=== PATIENT | female | born 1955 | race Caucasian/White ===

== ENCOUNTER 2022-04-22 15:00 | Emergency (ER) | payer MEDICARE, SELFPAY ==
--- NOTE | 2022-04-22 15:07 | ED.URI ---
HPI - URI/Sore Throat General Chief Complaint: Upper Respiratory Infection Stated Complaint: Headache/Fever/Cough Time Seen by Provider: 04/22/22 15:07 Source: patient Mode of arrival: ambulatory Limitations: no limitations History of Present Illness HPI Narrative: Ms. Lucero is a 67-year-old female patient presenting to the clinic today with complaints of a headache, fever, and cough times starting on Thursday. She has congestion and feels stuffy . She reports she has tested positive for COVID at home on Thursday. She denies ear pain, throat pain, SOB and chest pain. She is requesting Paxlovid. MD elicited complaint: fever, cough and other (headache) Related Data Home Medications Medication Instructions Recorded Confirmed aspirin 81 mg tablet 81 mg PO DAILY 04/22/22 04/22/22 bempedoic acid 180 mg-ezetimibe 10 1 tablet PO DAILY 04/22/22 04/22/22 mg tablet (Nexlizet) carvedilol 25 mg tablet 25 mg PO BID 04/22/22 04/22/22 Allergies Allergy/AdvReac Type Severity Reaction Status Date / Time Macrolide Antibiotics AdvReac Rash Verified 04/22/22 15:18 Penicillins AdvReac Rash Verified 04/22/22 15:18 Quinolones AdvReac Rash Verified 04/22/22 15:18 Sulfa (Sulfonamide AdvReac Rash Verified 04/22/22 15:18 Antibiotics) Review of Systems Review of Systems: Pertinent positives per HPI. Patient denies any, rash, visual changes, dizziness, shortness of breath, chest pain, palpitations, nausea, vomiting, diarrhea, constipation, abdominal pain, or any urinary issues. PMFSH Comments At the time of my signature, I reviewed and agree with the nursing past medical, surgical, social, and family history. There is no relevant family history pertinent to the patient complaint. Exam Narrative: General: Well-developed, obese, in no apparent distress Head: Normocephalic, atraumatic Eyes: Pupils equally round and reactive to light bilaterally, EOM intact, sclera and conjunctive clear, no discharge, lids normal Ears: TMs intact and clear, ear canals clear, no drainage, grossly hearing normal. Nose: Nares patent, clear nasal discharge present, no inflammation, no sinus tenderness. Mouth: Oral pharynx without lesions or masses, good dentition, MMM. Neck: Supple, trachea midline, no enlargement of anterior or posterior cervical nodes, no thyroid masses or goiter palpable. Cardio: Regular rate and rhythm, s1 and s2 normal, no murmur appreciated. Resp: Clear to auscultation bilaterally, no rhonchi, rales, wheezing or rubs Course Course Emergency Course: Portions of this record may have been created with voice recognition software. Level of Care: Express Care Visit Vital Signs Vital signs: Vital signs reviewed MDM - URI/Sore Throat MDM Narrative Medical decision making narrative: At the time of visit patient is resting comfortably on the exam table. Patient is positive for COVID at home and presented to the clinic for treatment. On exam, she did not have rales, ronchi, wheezing. Her SpO2 on presentation is 98%, and she denies SOB. She is on day five of symptoms, will send patient with prescription for Paxlovid. Differential Diagnosis Differential diagnosis: Likely upper respiratory infection, sinusitis, viral infection, bronchitis, influenza, pharyngitis and other (COVID) Discharge Plan Discharge Clinical Impression: COVID-19 Patient Disposition: Home, Self-Care Condition: Stable Instructions: Antibiotic Form, COVID-19 (Coronavirus Disease 2019) (ED), How to Recover from COVID-19 at Home (ED) Additional Instructions: Take prescription medications only as prescribed-paxlovid Increase fluids and stay well hydrated Tylenol/motrin for pain/fever Cool mist humidifer at bedside Flonase and OTC antihistamines as directed Vicks vapor rub to open sinuses Sinus rinses for congestion Cepacol spray, cough drops, throat lozenges, warm tea with honey/lemon, gargle salt water to soothe throat BRAT diet for diar
[2022-04-22 15:08] VITALS: BP 110/64; PULSE 81; RESP 20; TEMP 36.6; O2SAT 98
[2022-04-22 15:19] VITALS: BP 110/64; PULSE 81; RESP 20; TEMP 36.6; O2SAT 98
== END 2022-04-22 15:26 | disposition home or self-care (01) ==
PROVIDERS: Emergency Provider Nurse Practitioner Family
DX: U07.1 COVID-19 (principal); I25.10 Atherosclerotic heart disease of native coronary artery without angina pectoris; E78.00 Pure hypercholesterolemia, unspecified; I10 Essential (primary) hypertension; I42.9 Cardiomyopathy, unspecified
CPT/HCPCS: 99213; G0463

== ENCOUNTER 2022-05-07 03:01 | Emergency (ER) | payer MEDICARE, SELFPAY ==
--- NOTE | ~2022-05-07 | XR_ITS ---
EXAMINATION: XR knee RT 2V DATE: 05/07/2022 03:29 INDICATION: Right knee pain. TECHNIQUE: 2 views of right knee were obtained. COMPARISON: None. FINDINGS: Bone alignment is normal. No fracture. There is mild osteoarthritis of lateral and patellof emoral compartments. No knee joint effusion. IMPRESSION: 1. Mild right knee osteoarthritis. Reviewed, dictated and finalized at location A.
[2022-05-07 03:13] VITALS: BP 155/97; PULSE 65; RESP 20; TEMP 36.8; O2SAT 97
--- NOTE | 2022-05-07 03:31 | ED.EXTPRO ---
HPI - Extremity Problem General Chief complaint: Extremity Injury, Lower Stated complaint: RIGHT KNEE PAIN Time Seen by Provider: 05/07/22 03:26 Source: patient, EMS and RN notes reviewed Mode of arrival: EMS Limitations: no limitations History of Present Illness HPI Narrative: Patient just moved here. She does not have a doctor yet. She has chosen 1 in but they cannot see her till October as a new patient. She said she was walking today when she straightened out her legs she felt a pop and had severe pain in her right knee. It hurts to bend hurts to walk on. Complaint: joint paint Onset (ago): week(s) (2) Pain Consistency: constant (getting worse) Location: right and knee Quality: aching, sharp and constant Radiation: none Relieving factors: rest Exacerbating factors: range of motion, weight bearing and palpation Associated symptoms: denies other symptoms Related Data Home Medications Medication Instructions Recorded Confirmed bempedoic acid 180 mg-ezetimibe 10 1 tablet PO DAILY 04/22/22 05/07/22 mg tablet (Nexlizet) carvedilol 25 mg tablet 12.5 mg PO BID 04/22/22 05/07/22 oxybutynin chloride 5 mg tablet 5 mg PO BID 05/07/22 05/07/22 pantoprazole 40 mg tablet,delayed 40 mg PO QAM 05/07/22 05/07/22 release Allergies Allergy/AdvReac Type Severity Reaction Status Date / Time Macrolide Antibiotics AdvReac Rash Verified 05/07/22 03:23 Penicillins AdvReac Rash Verified 05/07/22 03:23 Quinolones AdvReac Rash Verified 05/07/22 03:23 Sulfa (Sulfonamide AdvReac Rash Verified 05/07/22 03:23 Antibiotics) Review of Systems Review of Systems: All systems reviewed & are unremarkable except as noted in HPI and below PMFSH Past Medical History Medical History (Updated 05/07/22 @ 03:46 by Daniel Duff MD) GERD (gastroesophageal reflux disease) Hyperlipidemia Hypertension Uterine cancer Surgical History Surgical History (Updated 05/07/22 @ 03:34 by Daniel Duff MD) History of total abdominal hysterectomy Exam Const: General: healthy appearing, no acute distress and alert Nutritional Appearance: well nourished and obese morbidly obese Orientation/consciousness: patient oriented x3 Limitations: no limitations HENMT: Head: normal to inspection Ears: external ears normal Face and sinus: normal facial exam Eyes: Conjunctivae: conjunctivae normal Pupils: Equal, round and reactive pupils present EOM: EOMs intact bilaterally Neck: Neck: normal visual inspection Resp: Effort & Inspection: normal respiratory effort Auscultation: clear to auscultation bilaterally Cardio: Rate: regular rate Rhythm: regular rhythm GI: GI Palp: Yes Soft to palpation and No Tenderness to palpation present (GI) Auscultation: normal bowel sounds Back/Spine/Pelvis: Cervical Spine: cervical ROM normal Thoracic/Lumbar Spine: thoraco-lumbar ROM normal Skin: General skin exam: normal color Rashes: no rashes Neuro: General: patient oriented x3, moves all extremities, no focal motor deficits and CN's II-XI intact bilaterally Speech: normal speech Extrem: General: normal exam except as noted and no clubbing, cyanosis or edema Right lower extremity: knee Details: abnormal to inspection Details: not erythematous, tenderness Location: of the patella (entire patella), of the medial joint line and of the proximal tibia Details: medially, swelling Location: of the patella and Becki's Test Details: positive medially; no deformity and no unusual warmth Psych: Mental Status: mental status grossly normal Affect: normal affect Attitude: cooperative Course Course Emergency Course: I explained the patient that there is no criteria for admission to the hospital. Daughter seemed very upset that there is nothing more I could do for her. I put her in a knee immobilizer, and she will half to get some crutches as an outpatient. Both patient and daughter seemed upset that they had to be sent home. Wondering how
[2022-05-07] MEDS: KETOROLAC (*BKC) 60 MG/2 ML VIAL IM (03:47)
--- NOTE | 2022-05-07 03:56 | PC.NURSE ---
knee immobilizer applied to right knee
--- NOTE | 2022-05-07 04:40 | PC.NURSE ---
right knee immobilizer in place at time of discharge.
[2022-05-07 04:41] VITALS: BP 167/97; PULSE 56; RESP 20; TEMP 36.8; O2SAT 96
== END 2022-05-07 04:43 | disposition home or self-care (01) ==
PROVIDERS: Emergency Provider Emergency Medicine
DX: M23.91 Unspecified internal derangement of right knee (principal); K21.9 Gastro-esophageal reflux disease without esophagitis; E78.5 Hyperlipidemia, unspecified; I10 Essential (primary) hypertension
CPT/HCPCS: 73560; 96372; 99283; J1885; L1830

== ENCOUNTER 2022-05-07 13:27 | Emergency (ER) | payer MEDICARE, SELFPAY ==
--- NOTE | ~2022-05-07 | US_ITS ---
EXAMINATION: US venous doppler LE RT DATE: 05/07/2022 15:16 INDICATION: Right lower limb pain. TECHNIQUE: Grayscale ultrasound images without and with compression and Doppler ultrasound images of the right lower extremity veins were obtained. COMPARISON: None. FINDINGS: The visualized portions of right common femoral vein, profunda (deep) femoral vein, femoral vein, pop liteal vein, peroneal veins, posterior tibial veins, and greater saphenous vein outflow are patent. IMPRESSION: 1. No deep venous thrombosis. Reviewed, dictated and finalized at location A.
[2022-05-07 13:57] VITALS: BP 97/62; PULSE 75; RESP 16; TEMP 36.8; O2SAT 97
[2022-05-07 14:14] LABS: Basophils Absolute Auto 0.1 K/mm3 (0.0-0.1); Basophils Percent Auto 1.2 % (0.2-1.2); Eosinophils Absolute Auto 0.3 K/mm3 (0-0.3); Hematocrit 41.8 % (37.0-47.0); Hemoglobin 13.6 g/dL (12.0-15.0); Immature Granulocyte Absolute 0.02 K/mm3 (0.00-0.031); Immature Granulocyte Percent A 0.3 % (0-0.5); Lymphocytes Absolute Auto 1.25 K/mm3 (0.9-3.2); Lymphocytes Percent Auto 21.4 % (18.3-44.2); Mean Corpuscular HGB Conc 32.5 g/dl (32-36); Mean Corpuscular Hemoglobin 30.3 pg (26-34); Mean Corpuscular Volume 93.1 fl (80-100); Mean Platelet Volume 8.7 fl (7.4-10.4); Monocytes Absolute Auto 0.5 K/mm3 (0.1-0.6); Monocytes Percent Auto 8.4 % (2.6-8.5); Neutrophils Absolute Auto 3.7 K/mm3 (1.3-6.7); Neutrophils Percent Auto 63.7 % (45.5-73.1); Platelet Count Result 315 k/mm3 (150-375); Red Blood Count 4.49 M/mm3 (4.2-5.4); Red Cell Distribution Width 12.3 % (11.5-14.5); White Blood Count 5.8 K/mm3 (4.5-10.0)
[2022-05-07 14:23] LABS: Prothrombin Time 12.9 Seconds (11.1-14.7)
[2022-05-07 14:24] LABS: Anion Gap 10 mmol/L (8-16); Blood Urea Nitrogen 23 mg/dL (7-17); Calcium 9.1 mg/dL (8.4-10.2); Carbon Dioxide 23 mmol/L (22-30); Chloride 105 mmol/L (98-107); Estimated CRCL calculation 76 ml/min; Estimated Glomerular Filt Rate > 60; Glucose 125 mg/dL (65-110); Partial Thromboplastin Time 29.1 SECONDS (22.3-36.8); Potassium 3.9 mmol/L (3.4-5.0); Sodium 138 mmol/L (137-145)
[2022-05-07 16:40] VITALS: BP 128/86; PULSE 82; RESP 16; O2SAT 98
--- NOTE | 2022-05-07 17:25 | ED.EXTPRO ---
HPI - Extremity Problem General Chief complaint: Extremity Problem,Nontraumatic <Kirsten Cr PA-C - Last Filed: 05/07/22 17:36> Stated complaint: pain behind right kneecap, reports it popped <Kirsten Cr PA-C - Last Filed: 05/07/22 17:36> Time Seen by Provider: 05/07/22 17:11 <SAMSON Israel Last Filed: 05/07/22 17:36> Source: patient <SAMSON Israel Last Filed: 05/07/22 17:36> Mode of arrival: EMS <SAMSON Israel Last Filed: 05/07/22 17:36> Limitations: no limitations <SAMSON Israel Last Filed: 05/07/22 17:36> History of Present Illness HPI Narrative: This is a 67-year-old female that presents to the emergency department for right knee pain. Reports it has been ongoing for quite some time. Reports worsening over the last couple of days. She was evaluated in the ER yesterday for this and placed in a knee immobilizer. Reports again today she felt a pop in the knee which prompted her to be seen again. Patient was concerned she may have a DVT. Reports swelling about the knee. Denies fever, erythema, or warmth of the knee. <SAMSON Israel Last Filed: 05/07/22 17:36> Related Data Home medications: Home Medications Medication Instructions Recorded Confirmed bempedoic acid 180 mg-ezetimibe 10 1 tablet PO DAILY 04/22/22 05/08/22 mg tablet (Nexlizet) carvedilol 25 mg tablet 12.5 mg PO BID 04/22/22 05/08/22 oxybutynin chloride 5 mg tablet 5 mg PO BID 05/07/22 05/08/22 pantoprazole 40 mg tablet,delayed 40 mg PO QAM 05/07/22 05/08/22 release <SAMSON Israel Last Filed: 05/07/22 17:36> Allergies/Adverse reactions: Allergies Allergy/AdvReac Type Severity Reaction Status Date / Time Macrolide Antibiotics AdvReac Rash Verified 05/08/22 14:42 Penicillins AdvReac Rash Verified 05/08/22 14:42 Quinolones AdvReac Rash Verified 05/08/22 14:42 Sulfa (Sulfonamide AdvReac Rash Verified 05/08/22 14:42 Antibiotics) <Kirsten Cr PA-C - Last Filed: 05/07/22 17:36> Review of Systems Review of Systems: CONSTITUTIONAL: Denies fever SKIN: Denies rash MUSCULOSKELETAL: Reports joint pain, and myalgia. NEUROLOGIC: Denies numbness, or weakness. <Kirsten Cr PA-C - Last Filed: 05/07/22 17:36> All systems reviewed & are unremarkable except as noted in HPI and below <Kirsten Cr PA-C - Last Filed: 05/07/22 17:36> PMFSH Past Medical History Medical History: Medical History (Updated 05/12/22 @ 08:13 by Gisel Dominguez MA) GERD (gastroesophageal reflux disease) Hyperlipidemia Hypertension Internal derangement of right knee Uterine cancer <Kirsten Cr PA-C - Last Filed: 05/07/22 17:36> Surgical History Surgical History: Surgical History History of total abdominal hysterectomy <Kirsten Cr PA-C - Last Filed: 05/07/22 17:36> Social History Social History: Social History (Updated 05/08/22 @ 14:47 by Gisel Dominguez MA) Smoking status: Never smoker Substance use: never Gender identity (if verbalized by the patient): Female <Kirsten Cr PA-C - Last Filed: 05/07/22 17:36> Exam Narrative: GENERAL: Well-appearing, well-nourished, and in no acute distress. HEAD: Normocephalic, atraumatic. EYES: EOMI. EXTREMITIES: No erythema or warmth of the knee. Normal straight leg raise. Mild edema about the right knee anteriorly. Normal DP pulse. Normal sensation SKIN: Warm, dry, no rash. NEURO: No focal deficits. Alert and oriented x3. PSYCH: Normal mood and affect <Kirsten Cr PA-C - Last Filed: 05/07/22 17:36> Course SANDWICH PEDDLER/PA Physician Supervision For this patient encounter, I reviewed the SANDWICH PEDDLER or PA documentation, treatment plan, and medical decision making. I was available for consultation as needed. <Meena Nash MD - Last Filed: 05/16/22 13:06> Vital Signs Vital signs:
== END 2022-05-07 18:12 | disposition home or self-care (01) ==
PROVIDERS: Emergency Medicine; Emergency Provider Emergency Medicine
DX: M23.91 Unspecified internal derangement of right knee (principal); I10 Essential (primary) hypertension; K21.9 Gastro-esophageal reflux disease without esophagitis; E78.5 Hyperlipidemia, unspecified; Z85.42 Personal history of malignant neoplasm of other parts of uterus; M79.604 Pain in right leg
CPT/HCPCS: 36415; 80048; 85025; 85610; 85730; 93971; 99284

== ENCOUNTER 2022-07-08 08:50 | Outpatient (CLI) | payer MEDICARE, SELFPAY ==
--- NOTE | ~2022-07-08 | MR_ITS ---
EXAMINATION: MR knee RT wo con DATE: 07/08/2022 09:59 INDICATION: Evaluate right knee injury TECHNIQUE: Magnetic resonance imaging (MRI) of the right knee was performed without intravenous contr ast. Sequences included coronal PD-weighted FSE, coronal PD-weighted FS FSE, sagittal T2-weighted FS E, sagittal PD-weighted FS FSE and axial PD weighted fat saturated FSE. COMPARISON: None. FINDINGS: Medial compartment: Radial tear near the posterior root of the medial meniscus with likely secondary medial extrusion of the meniscal body. There is thickening and increased intrasubstance signal which is not an invasive c ontact the articular surface at the junction of the body and posterior horn consistent with mucoid de generation. Partial-thickness cartilage loss with chondral surface regularity along the weightbearing medial femoral condyle in places involving greater than 50% the cartilage thickness but without dege nerative subchondral changes. Additional partial thickness cartilage loss along the medial tibial tre teau which involves greater than 50% the cartilage thickness along the medial rim where there is mild underlying subarticular edema-like signal change. Lateral compartment: Complex tear of the lateral meniscus with small crescentic defect along the inner free edge of the me niscal body and with longitudinal tear planes contacting the articular surface near the free edge and along the inferior articular surface at the peripheral third of the posterior horn. Shallow chondral surface irregularity along the central aspect of the lateral tibial plateau and along the anterior w eightbearing lateral femoral condyle. Patellofemoral compartment: Deep chondral fissure at the central aspect of the medial patellar facet where there is suggestion of associated tiny central subchondral osteophyte. Additional less severe partial thickness chondral fi ssuring involving less than 50% the cartilage thickness at the lateral patellar facet. Deep chondral ulceration and fissuring at the caudal aspect of the trochlear groove and medial trochlea with subtle underlying cortical irregularity. Deep chondral fissuring with couple small foci of underlying subar ticular edema-like signal change at the inferior aspect of the lateral trochlea. Ligaments and tendons: Anterior and posterior cruciate ligaments are normal. The medial collateral ligament and fibular john ateral ligament complex are normal. Mild tendinopathy and small enthesophytes at the anterior tibial tubercle and patellar insertions of the patellar and distal tendons. Mild tendinopathy at the direct head of the semimembranosus tendon. The visualized medial and lateral hamstring tendons as well as th e iliotibial band are otherwise normal. Fluid: Moderate-sized right knee joint effusion with mild synovitis at the suprapatellar pouch. No loose ost eochondral bodies identified. Osseous/other: Bone alignment is normal. No fracture or pathologic marrow replacing process. IMPRESSION: 1. Medial and lateral meniscal tears. 2. Tricompartmental osteoarthritis, mild to moderate severity with moderate to high-grade chondromala armen in the medial compartment, mild loss with moderate and more extensive high-grade chondromalacia i n the patellofemoral compartment and mild with moderate grade chondromalacia in the lateral compartme nt. 3. Moderate-sized knee joint effusion. 4. Chronic mild enthesopathy at the osseous extension of the extensor mechanism. Reviewed, dictated and finalized at location A. CLEANER IMPRESSION: 1. Medial and lateral meniscal tears. 2. Tricompartmental osteoarthritis, mild to moderate severity with moderate to high-grade chondromalacia in the medial compartment, mild loss with moderate an d more e
== END 2022-07-08 08:51 | disposition home or self-care (01) ==
LOC: ANHIMG 08:52
PROVIDERS: PCP Family Medicine; Visit Provider Orthopaedic Surgery
DX: M17.11 Unilateral primary osteoarthritis, right knee (principal); S83.281A Other tear of lateral meniscus, current injury, right knee, initial encounter; S83.241A Other tear of medial meniscus, current injury, right knee, initial encounter; X58.XXXA Exposure to other specified factors, initial encounter
CPT/HCPCS: 73721

== ENCOUNTER 2022-07-08 20:24 | Outpatient (CLI) | payer MEDICARE, SELFPAY ==
--- NOTE | 2022-07-31 17:57 | WPDSLEEPSTUD ---
Sleep Study Date of Study: 07/08/22 Ordering Provider: COLE Alan Interpreting Physician: Charity Longo MD Sleep Study Type: Polysomnogram Height: 1.75 m Weight: 127.913 kg Body Mass Index: 41.6 Neck Circumference (inches): 15.5 [place]: 6 Reason for Sleep Study Poor quality sleep, excessive daytime sleepiness Sleep History Beverly Lucero is a 67-year-old woman referred for sleep study. She says that her human resources technician referred her, however it was her primary care provider, COLE Tafoya who realized that she needed this evaluation. She has a history of cardiomyopathy with an EF of 35-40%, left bundle branch block, CAD status post PCI with stent, history of uterine cancer 2019,and hypertension.. She has a history of obstructive sleep apnea but did not follow through and get a CPAP machine. She recently lost her to cancer and has been grieving. She wakes at night to go to the bathroom 2-3 times. She falls asleep in her chair during the afternoons and evenings. She wakes up during the night and has excessive daytime sleepiness. There is a family history with her brother having sleep apnea and possibly her son. She does not awaken from sleep feeling short of breath. She rarely awakens at night with heartburn, belching or coughing. She frequently snores loudly. She occasionally has trouble sleeping with a cold. She does not wake up gasping for breath at night. She constantly sweats excessively at night. She cannot stand to use a blanket at night. She occasionally notices her heart pounding or beating irregularly at night. She constantly falls asleep during the day, frequently falls asleep involuntarily, never falls asleep while driving. She does not have loss of muscle tone with strong emotion. She is retired so there is really no problem with excessive daytime sleepiness. She does not feel paralyzed on waking or falling asleep. She occasionally has vivid dreamlike scenes on waking or falling asleep. She does not feel afraid to go to sleep. She rarely has nightmares. She occasionally remembers her dreams. She frequently has racing thoughts. She frequently feels sad depressed. She frequently feels anxious. She occasionally has leg cramps. She occasionally notices parts of her body jerking. She rarely kicks at night. She occasionally has crawling and aching feelings in her legs. She frequently has leg pain at night which she attributes to a torn calf muscle. She does not have morning jaw pain. She does not grind her teeth during sleep. She frequently is bothered by pain during the day due to a problem with her calf and her knee. She has not awakened by pain at night. She frequently wakes up feeling stiff in the morning with sore achy muscles and pain in the neck and spine. She has fatigue, memory problems, difficulty making decisions and depression. Normal bedtime is 9:00 p.m., and she fa;ss asleep within 30 minutes to an hour, typically waking 2-3 times at night to use the bathroom. She is able to fall asleep again quickly. She wakes the morning between 6:00 and 7:30 a.m.. Weekend schedule is the same. She estimates getting between 6 and 7 hours of sleep at night. She takes naps in the afternoon. A short nap is not refreshing but nap lasting an hour may be refreshing. She is usually drowsy for 2 hours after waking. She feels better in the morning compared to other times of day. Habits: Never smoked. No caffeine, alcohol or recreational drugs. [facility] Past Medical History Medical History Cardiomyopathy Depression GERD (gastroesophageal reflux disease) Hyperlipidemia Hypertension Internal derangement of right knee KATIE (obstructive sleep apnea) Uterine cancer Surgical History Surgical History History of appendectomy 1961 History of cholecystectomy 2013 History of heart artery stent
[2022-07-31 19:32] VITALS: BMI 41.6
== END 2022-07-09 06:45 | disposition home or self-care (01) ==
PROVIDERS: PCP Family Medicine; Visit Provider Physician Assistant Medical
DX: G47.33 Obstructive sleep apnea (adult) (pediatric) (principal)
CPT/HCPCS: 95810

== ENCOUNTER 2022-08-14 20:26 | Outpatient (CLI) | payer MEDICARE, SELFPAY ==
--- NOTE | 2022-09-04 11:57 | WPDSLEEPSTUD ---
Sleep Study Date of Study: 08/14/22 Ordering Provider: COLE Alan Interpreting Physician: Charity Longo MD Sleep Study Type: BiPAP Titration Height: 1.75 m Weight: 127.913 kg Body Mass Index: 41.6 Neck Circumference (inches): 16 [place]: 9 Reason for Sleep Study * 07/08/2022 - Home sleep test-with severe obstructive sleep apnea, apnea-hypopnea index 49.3, desaturation to 76%, 51.8 minutes or 12.6% the study spent below 88%.? Patient returns for a titration. Sleep History Beverly Lucero is a 67-year-old woman referred for sleep study, had a basic sleep study 07/08/2022. She has a history of cardiomyopathy with an EF of 35-40%, left bundle branch block, CAD status post PCI with stent, history of uterine cancer 2018,and hypertension.. She has a history of obstructive sleep apnea but did not follow through and get a CPAP machine.? She recently lost her to cancer and has been grieving.? She wakes at night to go to the bathroom 2-3 times.? She falls asleep in her chair during the afternoons and evenings.? She wakes up during the night and has excessive daytime sleepiness.? There is a family history with her brother having sleep apnea and possibly her son.? She does not awaken from sleep feeling short of breath.? She rarely awakens at night with heartburn, belching or coughing.? She frequently snores loudly.? She occasionally has trouble sleeping with a cold.? She does not wake up gasping for breath at night.? She constantly sweats excessively at night.? She cannot stand to use a blanket at night.? She occasionally notices her heart pounding or beating irregularly at night.? She constantly falls asleep during the day, frequently falls asleep involuntarily, never falls asleep while driving.? She does not have loss of muscle tone with strong emotion.? She is retired so there is really no problem with excessive daytime sleepiness.? She does not feel paralyzed on waking or falling asleep.? She occasionally has vivid dreamlike scenes on waking or falling asleep.? She does not feel afraid to go to sleep.? She rarely has nightmares.? She occasionally remembers her dreams.? She frequently has racing thoughts.? She frequently feels sad depressed.? She frequently feels anxious.? She occasionally has leg cramps.? She occasionally notices parts of her body jerking.? She rarely kicks at night.? She occasionally has crawling and aching feelings in her legs.? She frequently has leg pain at night which she attributes to a torn calf muscle.? She does not have morning jaw pain.? She does not grind her teeth during sleep.? She frequently is bothered by pain during the day due to a problem with her calf and her knee.? She has not awakened by pain at night.? She frequently wakes up feeling stiff in the morning with sore achy muscles and pain in the neck and spine.? She has fatigue, memory problems, difficulty making decisions and depression. Normal bedtime is 9:00 p.m., and she fa;ss asleep within 30 minutes to an hour, typically waking 2-3 times at night to use the bathroom.? She is able to fall asleep again quickly.? She wakes the morning between 6:00 and 7:30 a.m..? Weekend schedule is the same.? She estimates getting between 6 and 7 hours of sleep at night.? She takes naps in the afternoon.? A short nap is not refreshing but nap lasting an hour may be refreshing.? She is usually drowsy for 2 hours after waking.? She feels better in the morning compared to other times of day. Habits:? Never smoked.? No caffeine, alcohol or recreational drugs. [facility] Past Medical History Medical History Cardiomyopathy Depression GERD (gastroesophageal reflux disease) Hyperlipidemia Hypertension Internal derangement of right knee KATIE (obstructive sleep apnea) Uterine cancer Surgical History Surgical History History of appendectomy 1961 History of cholecystectomy 2013
[2022-09-04 12:23] VITALS: BMI 41.6
== END 2022-08-15 06:21 | disposition home or self-care (01) ==
PROVIDERS: PCP Family Medicine; Visit Provider Physician Assistant Medical
DX: G47.33 Obstructive sleep apnea (adult) (pediatric) (principal); Z68.41 Body mass index [BMI] 40.0-44.9, adult
CPT/HCPCS: 95811

== ENCOUNTER 2023-01-07 11:00 | Outpatient (RCR) | payer MEDICARE, SELFPAY | END 2023-01-16 13:15 | disposition home or self-care (01) | PROVIDERS: PCP Family Medicine | DX: I50.9 Heart failure, unspecified (principal) | CPT/HCPCS: 93798 ==

== ENCOUNTER 2023-04-20 11:07 | Outpatient (RCR) | payer MEDICARE, SELFPAY ==
--- NOTE | 2023-04-13 15:21 | PCPTNOTE ---
patient was scheduled for PT evaluation this morning, but cancelled due to illness. she re-scheduled for evaluation on 04/20/23.
--- NOTE | 2023-04-20 13:11 | OPREHPOC ---
Outpatient Therapy Plan of Care This is a Multidisciplinary Plan of Care that may contain components documented by all disciplines (PT, OT, and ST.) PT Problem 1 PT Problem #1 Knowledge Deficit PT Goal 1 Goal Patient to demonstrate independence with HEP Target Visit 4 PT Problem 2 PT Problem #2 Pain PT Goal 1 Goal 1. Patient to report highest pain at 2/10 2. Patient to report ability to sleep with no disturbance due to pain Target Visit 6 PT Problem 3 PT Problem #3 Impaired Functional Mobil PT Goal 1 Goal 1. Patient to report ability to stand for >30 min to complete house hold chores 2. Patient to score 20% improvement on Back Index Target Visit 6 PT Problem 4 PT Problem #4 Impaired Strength PT Goal 1 Goal Patient to demonstrate 5/5 B LE strength to return to stair navigation at PLOF Target Visit 6
--- NOTE | 2023-04-20 13:12 | PTOPEVAL1 ---
Assessment and note entered by Rimma Delgado DPT Evaluation Information Diagnosis low back pain, B LE pain Onset 03/25/23 Subjective Information Patient reports low back and B thigh pain that has been occuring over the last year with symptoms worsening the last few years. She reports she has a history of uterine cancer and has a CT scan on Thursday. Patient reports back pain is increased with laying down for sleep, navigating stairs and standing for prolonged periods of time. Patient reports B leg pain with laying on either side when sleeping. Patient is retired but completes all house hold ADLs. Reported Pain Level Pain Score 4,0,3: Self Report Assessment PT Clinical Summary Patient is a 68 year old female who presents to PT with low back and B lateral thigh pain. Patient demonstrates decrease B hip strength, pain with lumbar extension, decreased LE flexibility and impaired posture limiting her ability to stand for house hold tasks and sleep without disturbance. Plan of Care Interventions Electrical Stimulation,Gait Training,Hot Pack/Cold Pack,Manual Therapy,Neuro Re-education,Patient/ Caregiver Educati,Therapeutic Activities, Therapeutic Exercise PT Services Indicated Yes Treatment Frequency and 1x weekly for 6 visits Duration These treatments will address the objective and functional deficits as defined above. The patient will be advanced safely and appropriately in order for the patient to progress towards his/her prior level of function. Additional exercises will be introduced and as well as a comprehensive home exercise program upon discharge, if needed, ?to ensure carryover of functional gains achieved in the clinic. This treatment plan has been reviewed and agreement upon by the patient.
== END 2023-04-27 14:06 | disposition home or self-care (01) ==
LOC: CHSPT 11:07
PROVIDERS: Visit Provider Family Medicine
DX: M76.30 Iliotibial band syndrome, unspecified leg (principal); M54.50 Low back pain, unspecified
CPT/HCPCS: 97110; 97161; 97530

== ENCOUNTER → 2023-05-11 16:33 | Outpatient (CLI) | payer MEDICARE, SELFPAY ==
--- NOTE | ~2023-05-11 | XR_ITS ---
EXAMINATION: XR abdomen/kub 1V DATE: 05/11/2023 16:53 INDICATION: Unspecified abdominal pain. TECHNIQUE: A supine view of the abdomen on 2 radiographs was obtained. COMPARISON: None. FINDINGS: There are no dilated loops of bowel. There is a large volume of stool in the colon. Surgica l clips in the right upper quadrant are likely from cholecystectomy. IMPRESSION: 1. Large volume of stool in the colon. Reviewed, dictated and finalized at location A.
== END ==
PROVIDERS: PCP Family Medicine; Visit Provider Nurse Practitioner Family
DX: R10.9 Unspecified abdominal pain (principal)
CPT/HCPCS: 74018

== ENCOUNTER 2023-05-15 13:28 | Emergency (ER) | payer MEDICARE, SELFPAY ==
--- NOTE | ~2023-05-15 | XR_ITS ---
XR wrist LT min 3V 05/15/2023 14:04 Indication: Left wrist pain Procedure: 4 views left wrist Comparison: No prior studies for comparison. Findings: There is polyarticular osteoarthritis of the triscaphe and first carpal metacarpal joints. No fracture or traumatic malalignment. No soft tissue abnormality. No foreign bodies. Impression: 1: Severe polyarticular osteoarthritis Reviewed, dictated and finalized at location B. Impression: 1: Severe polyarticular osteoarthritis
--- NOTE | ~2023-05-15 | XR_ITS ---
EXAMINATION: XR humerus LT INDICATION: Left arm pain TECHNIQUE: Two views of the left humerus are obtained on three radiographs. COMPARISON: None available FINDINGS: Bone alignment is normal. There is no fracture. There is moderate osteoarthritis at the gle nohumeral joint and severe osteoarthritis at the acromioclavicular joint. Bone alignment at the elbow is indeterminate. IMPRESSION: 1. Osteoarthritis without definite acute osseous abnormality. Indeterminate alignment at the elbow. I f there is history of elbow pain, dedicated elbow radiographs are recommended. Reviewed, dictated and finalized at location F. IMPRESSION: 1. Osteoarthritis without definite acute osseous abnormality. Indeterminate ali gnment at the elbow. If there is history of elbow pain, dedicated elbow radiogr aphs are recommended.
--- NOTE | ~2023-05-15 | XR_ITS ---
EXAMINATION: XR foot RT min 3V DATE: 05/15/2023 14:03 INDICATION: Right foot pain TECHNIQUE: Dorsoplantar, lateral, and 2 oblique views of the right foot were obtained. COMPARISON: None. FINDINGS: Bone alignment is normal. There is no fracture. There is moderate osteoarthritis of the mid foot and multiple interphalangeal joints. Posterior and plantar calcaneal enthesophytes are noted. Th ere is a 6 mm linear radiopaque foreign body in the plantar soft tissues of the first toe near the tu ft. IMPRESSION: 1. Polyarticular osteoarthritis without acute osseous abnormality. 2. Small radiopaque foreign body in the first toe. Reviewed, dictated and finalized at location F.
--- NOTE | 2023-05-15 13:34 | ED.FALL ---
HPI - Fall General Chief Complaint: Fall Stated Complaint: fall/L arm pain/R foot pain Time Seen by Provider: 05/15/23 13:30 Source: patient and RN notes reviewed Mode of arrival: ambulatory Limitations: no limitations History of Present Illness HPI Narrative: patient states she was at home and slipped on some water on the floor. She fell onto her left shoulder and left wrist as well as twisting her right foot. She denied any loss of consciousness or head injury. MD complaint: fall Onset (ago): minute(s) (30) Fall from: standing Fall witnessed: no Place fall occurred: home Loss of consciousness: none Prolonged down time: no Symptoms prior to fall: none Context: tripped/slipped ( on some water on the floor) Location of injury - extremities: Left: arm and forearm and Right: foot Severity scale (1-10): 9 Quality: dull and aching Associated symptoms (after fall): denies Related Data Home Medications Medication Instructions Recorded Confirmed bempedoic acid 180 mg-ezetimibe 10 1 tablet PO DAILY 04/22/22 05/15/23 mg tablet (Nexlizet) cholecalciferol (vitamin D3) 50 50 mcg PO DAILY 06/09/22 05/15/23 mcg (2,000 unit) capsule levalbuterol tartrate 45 2 inh inhalation Q6H 06/09/22 05/15/23 mcg/actuation aerosol inhaler (Xopenex HFA) aspirin 81 mg chewable tablet 81 mg PO DAILY 06/16/22 05/15/23 carvedilol 3.125 mg tablet 12.5 mg PO Q12H 05/15/23 05/15/23 Allergies Allergy/AdvReac Type Severity Reaction Status Date / Time [id number] Reductase AdvReac Intermediate Muscle Pain Verified 05/11/23 15:44 Inhibitor Macrolide Antibiotics AdvReac Rash Verified 05/11/23 15:44 Penicillins AdvReac Rash Verified 05/11/23 15:44 Quinolones AdvReac Rash Verified 05/11/23 15:44 Sulfa (Sulfonamide AdvReac Rash Verified 05/11/23 15:44 Antibiotics) Review of Systems Review of Systems: All systems reviewed & are unremarkable except as noted in HPI and below PMFSH Past Medical History Medical History BMI 39.0-39.9,adult BMI 40.0-44.9, adult Cardiomyopathy Chronic pain Depression GERD (gastroesophageal reflux disease) Hyperlipidemia Hypertension 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 Vazquez/SHELIA Larios History of tonsillectomy 1961 History of total abdominal hysterectomy Family History Family History Father No problems noted. Mother No problems noted. Sibling COPD (chronic obstructive pulmonary disease) Hypertension Thyroid activity decreased Other Aneurysm Arthritis Asthma Brain tumor Carcinoma of colon Diabetes mellitus Heart disease Hyperlipidemia Neuropathy Skin cancer Social History Social History Smoking status: Never smoker Second hand tobacco smoke exposure: Yes Alcohol intake: never Substance use: never Substance use type: does not use Lack of Transportation: No Lack of Food: Never True Current Housing: I Have Housing Concerned About Future Housing: No Difficulty Paying Gas/Electric Bills: No Difficulty Paying for Meds: No Currently Unemployed: No Education: High School Diploma/GED Difficulty w/ Childcare or Family Care: No Living arrangements: with family Occupation/Education: retired Additional occupation/education comments: [employer] Gender identity (if verbalized by the patient): Female Exam Const: General: healthy appearing, no acute distress and alert Nutritional Appearance: well nourished and obese Orientation/consciousness: patient oriented x3 Limitations: no limitations HENMT: Head
[2023-05-15 14:32] VITALS: BP 148/62; PULSE 84; RESP 20; TEMP 36.8; O2SAT 98
== END 2023-05-15 14:45 | disposition home or self-care (01) ==
PROVIDERS: Emergency Provider Emergency Medicine; PCP Family Medicine
DX: S40.022A Contusion of left upper arm, initial encounter (principal); S93.601A Unspecified sprain of right foot, initial encounter; S63.502A Unspecified sprain of left wrist, initial encounter; E78.5 Hyperlipidemia, unspecified; I10 Essential (primary) hypertension; Z79.899 Other long term (current) drug therapy; Z79.82 Long term (current) use of aspirin; W01.0XXA Fall on same level from slipping, tripping and stumbling without subsequent striking against object, initial encounter; Y92.009 Unspecified place in unspecified non-institutional (private) residence as the place of occurrence of the external cause
CPT/HCPCS: 73060; 73110; 73630; 99284

== ENCOUNTER 2023-06-07 09:30 | Outpatient (CLI) | payer MEDICARE, SELFPAY ==
--- NOTE | ~2023-06-07 | MR_ITS ---
EXAMINATION: MR foot RT wo con DATE: 06/07/2023 10:14 INDICATION: Right foot pain post fall one month prior TECHNIQUE: Magnetic resonance imaging (MRI) of the right fore/mid foot was performed without intraven ous contrast. Sequences included sagittal T1-weighted FSE, sagittal fluid sensitive FSE STIR, coronal PD-weighted FS FSE, coronal T1-weighted FSE, axial PD-weighted FS FSE, and axial PD-weighted FSE. COMPARISON: Radiographs dated 05/15/2022 FINDINGS: Bone alignment is normal. There is marrow edema surrounding a nondisplaced curvilinear low signal int ensity nondisplaced impaction fracture line underlying the distal articular surface at the plantar/la teral aspect of the anterior process of the calcaneus. There is additional nonspecific marrow edema a t the proximal metaphyseal region of the fourth metatarsal without evident fracture line which could be related to either bone contusion or more likely degenerative change associated with mild osteoarth ritis along its articulation with the fifth metatarsal. Minimal subarticular edema-like signal change and tiny subarticular cystlike changes associated with moderate osteoarthritis at the first-third ta rsal metatarsal and medial naviculocuneiform joints as well as the articulation between the medial an d mid cuneiforms. Mild osteoarthritis at many of the remaining joints at the right foot and ankle. Th e stabilizing ligaments of the ankle, the uterus trunk ligament and the collateral ligament complex a t the metatarsophalangeal and interphalangeal joints appear normal. Visualized portion of the extenso r tendons and the medial sided flexor tendons are normal. There is mild peroneal tenosynovitis with m ild tendinopathy without discrete tear of the peroneus longus tendon. Achilles tendinosis without dis crete tear. Physiologic amount fluid in the joint spaces. Mild bursitis underlying the head of the fi fth metatarsal. IMPRESSION: 1. Nondisplaced subarticular calcaneocuboid impaction fracture at the anterior process of the calcane us. 2. Mild to moderate polyarticular osteoarthritis at the right foot and ankle most prominent in the mi dfoot. 3. Mild Achilles tendinosis. 4. Mild peroneal tenosynovitis with mild tendinopathy of the peroneus longus tendon. 5. Mild bursitis plantar to the head of the fifth metatarsal. Reviewed, dictated and finalized at location A. IMPRESSION: 1. Nondisplaced subarticular calcaneocuboid impaction fracture at the anterior process of the calcaneus. 2. Mild to moderate polyarticular osteoarthritis at the right foot and ankle mo st prominent in the midfoot. 3. Mild Achilles tendinosis. 4. Mild peroneal tenosynovitis with mild tendinopathy of the peroneus longus te ndon. 5. Mild bursitis plantar to the head of the fifth metatarsal.
== END 2023-06-07 09:31 | disposition home or self-care (01) ==
PROVIDERS: PCP Family Medicine; Visit Provider Family Medicine
DX: M79.671 Pain in right foot (principal); S92.024A Nondisplaced fracture of anterior process of right calcaneus, initial encounter for closed fracture; M19.071 Primary osteoarthritis, right ankle and foot; M76.61 Achilles tendinitis, right leg; M71.571 Other bursitis, not elsewhere classified, right ankle and foot
CPT/HCPCS: 73718

== ENCOUNTER 2023-07-03 14:11 | Outpatient (CLI) | payer MEDICARE, SELFPAY ==
--- NOTE | ~2023-07-03 | XR_ITS ---
EXAMINATION: XR chest 2V 07/03/2023 14:31 INDICATION: Dyspnea PROCEDURE: 2 view chest COMPARISON: No prior studies for comparison. FINDINGS: The lungs are clear. The cardiomediastinal silhouette is within normal limits. There are no pleural effusions. There is no pneumothorax suspected. There is diffuse idiopathic skeletal hyp erostosis (DISH) of the thoracic spine. IMPRESSION: 1: NO ACUTE CARDIOPULMONARY DISEASE. Reviewed, dictated and finalized at location A.
== END 2023-07-03 14:12 | disposition home or self-care (01) ==
LOC: CHSIMG 14:15
PROVIDERS: PCP Family Medicine; Visit Provider Nurse Practitioner Family
DX: R05.9 Cough, unspecified (principal); R09.89 Other specified symptoms and signs involving the circulatory and respiratory systems
CPT/HCPCS: 71046

== ENCOUNTER 2023-09-03 14:05 | Outpatient (CLI) | payer MEDICARE, SELFPAY ==
--- NOTE | ~2023-09-03 | MM_ITS ---
EXAMINATION: MM screening zion BI w herlinda HISTORY: Screening mammogram TECHNIQUE: Craniocaudal and mediolateral oblique 3-D tomosynthesis images were obtained and synthetic 2-D images were generated. CAD analysis was submitted and interpreted. COMPARISON: No prior mammogram is available for comparison at this institution. BREAST PARENCHYMAL COMPOSITION: The breasts are almost entirely fatty. FINDINGS: RIGHT BREAST: An asymmetry is present in the far posterior third of the breast in line with the nippl e axis on the mediolateral oblique view. LEFT BREAST: No suspicious mass, calcification, or architectural distortion are identified to suggest malignancy. IMPRESSION: 1. Right breast asymmetry which may represent the patient's baseline however no comparison is current ly available. 2. Comparison with prior mammograms is necessary. BI-RADS Category 0: Incomplete: Needs comparison with prior mammograms. Reviewed, dictated and finalized at location A. 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 Right breast asymmetry which may represent the patient's baseline however no comparison is currently available. 2. Comparison with prior mammograms is necessary. BI-RADS Category 0: Incomplete: Needs comparison with prior mammograms.
== END 2023-09-03 14:06 | disposition home or self-care (01) ==
LOC: CHSIMG 14:07
PROVIDERS: PCP Family Medicine; Visit Provider Family Medicine
DX: Z12.31 Encounter for screening mammogram for malignant neoplasm of breast (principal); R92.8 Other abnormal and inconclusive findings on diagnostic imaging of breast
CPT/HCPCS: 77063; 77067

== ENCOUNTER 2023-10-05 09:36 | Outpatient (CLI) | payer MEDICARE, SELFPAY ==
--- NOTE | ~2023-10-05 | MMUS_ITS ---
EXAMINATION: MM diagnostic zion RT w herlinda, US breast RT complete HISTORY: Right breast asymmetry on screening mammogram TECHNIQUE: Additional 3-D tomosynthesis images of the right breast were performed and synthetic 2-D i mages were generated. CAD analysis was submitted and interpreted. High resolution limited right breas t ultrasound was performed. COMPARISON: 09/03/2023 FINDINGS: MAMMOGRAPHIC FINDINGS: There is a persistent asymmetry in the far posterior third of the breast on the mediolateral oblique view which somewhat disperses with spot compression. No suspicious calcification or architectural dis tortion are identified. ULTRASOUND: There is no evidence of focal abnormal solid or cystic mass in the vicinity of the mammographic findi ng in question. IMPRESSION: 1. Probably benign right breast asymmetry. 2. Recommend 6 month follow-up right diagnostic mammogram and possible ultrasound. BI-RADS category 3, probably benign findings. Reviewed, dictated and finalized at location A. LEUM LAYER IMPRESSION: 1. Probably benign right breast asymmetry. 2. Recommend 6 month follow-up right diagnostic mammogram and possible ultrasou nd. BI-RADS category 3, probably benign findings.
== END 2023-10-05 09:37 | disposition home or self-care (01) ==
LOC: CHSIMG 09:37
PROVIDERS: PCP Family Medicine; Visit Provider Nurse Practitioner Family
DX: R92.8 Other abnormal and inconclusive findings on diagnostic imaging of breast (principal)
CPT/HCPCS: 76641; 77061; 77065; G0279

== ENCOUNTER 2024-04-14 10:43 | Outpatient (CLI) | payer MEDICARE, SELFPAY ==
--- NOTE | ~2024-04-14 | MM_ITS ---
EXAMINATION: MM diagnostic zion BI w herlinda HISTORY: Follow-up right breast asymmetry TECHNIQUE: Additional 3-D tomosynthesis images of the breasts were performed and synthetic 2-D images were generated. CAD analysis was submitted and interpreted. COMPARISON: Comparison to multiple prior studies sequentially, with oldest reviewed study dated 11/2023. BREAST PARENCHYMAL COMPOSITION: Not Dense: The breasts are almost entirely fatty. FINDINGS: There are no suspicious masses, calcifications or architectural distortion in either breast to suggest malignancy. IMPRESSION: 1. No evidence for malignancy in either breast. 2. Routine yearly screening mammogram and regular clinical breast examination are recommended. BI-RADS Category 1: Negative Reviewed, dictated and finalized at location B. IMPRESSION: 1. No evidence for malignancy in either breast. 2. Routine yearly screening mammogram and regular clinical breast examination a re recommended. BI-RADS Category 1: Negative
== END 2024-04-14 10:44 | disposition home or self-care (01) ==
LOC: CHSIMG 10:46
PROVIDERS: PCP Family Medicine; Visit Provider Nurse Practitioner Family
DX: R92.8 Other abnormal and inconclusive findings on diagnostic imaging of breast (principal)
CPT/HCPCS: 77062; 77066; G0279

== ENCOUNTER 2024-04-19 14:22 | Outpatient (CLI) | payer MEDICARE, SELFPAY ==
[2024-04-19 14:36] LABS: Add Urine Microscopic? NO; Appearance Urine Clear (Clear); Bilirubin Urine Negative (Negative); Blood Urine Negative (Negative); Color Urine Light Yellow (Yellow); Glucose Urine UA Negative (Negative); Ketones Urine Negative (Negative); Leukocyte Esterase Ur Negative LEU/UL (Negative); Nitrate Urine Negative (Negative); Protein Urine Negative (Negative); Specific Grav Ur >= 1.030 (1.010-1.020); Urobilinogen Urine 0.2 mg/dL (0.2-1.0)
== END 2024-04-19 14:23 | disposition home or self-care (01) ==
LOC: CHSLAB 14:23
PROVIDERS: PCP Family Medicine
DX: R30.0 Dysuria (principal)
CPT/HCPCS: 81003

== ENCOUNTER 2024-06-20 10:22 | Emergency (ER) | payer MEDICARE, SELFPAY ==
[2024-06-20] VITALS (12 sets, daily range): BP systolic 103–161; BP diastolic 66–95; PULSE 63–84; RESP 14–24; TEMP 36.4; O2SAT 94–100
--- NOTE | ~2024-06-20 | XR_ITS ---
XR chest 1V portable Ordering provider: Eduardo Abreu MD History: 69 years Female with . shortness of breath SINCE LAST NIGHT . Comparison: July 03, 2023 FINDINGS: MEDIASTINUM: The cardiac silhouette is not enlarged. LUNGS: No infiltrates, effusions or pneumothorax. Slightly prominent bronchovascular markings bilaterally more on the right lower lobe area. Follow-up advised. Possible opacity in the right midzone and left costophrenic angle. OTHER: No free air under the diaphragm. IMPRESSION: Prominent bronchovascular markings in the right lower lobe area which may indicate bronchitis versus early bronchopneumonia. Possibility of opacity in the right midzone and left costophrenic angle is no t excluded Follow-up advised. Reviewed, dictated and finalized at location A. IMPRESSION: Prominent bronchovascular markings in the right lower lobe area which may indic ate bronchitis versus early bronchopneumonia. Possibility of opacity in the rig ht midzone and left costophrenic angle is not excluded Follow-up advised.
--- NOTE | ~2024-06-20 | CT_ITS ---
CTA chest PE protocol Ordering provider: Eduardo Abreu MD History: 69 years Female with . shortness of breath with positive D-dimer . Comparison: None. Technique: CT angiogram chest was performed following timed intravenous injection of contrast. Thin s lice axial images and reformatted coronal images were obtained. Three dimensional reformatted images of the chest were also obtained using a [employer] workstation. . Automated exposure control and iterati ve reconstruction technique were employed. The dose-length product was 854.40 mGy-cm. Findings: PULMONARY ARTERIES: No pulmonary embolus. VISUALIZED THORACIC INLET: Normal. MEDIASTINUM: Aorta/coronary arteries: Mild atheromatous disease. Heart/other: The heart is slightly enlarged. Lymph nodes: No mediastinal or hilar adenopathy. LUNGS: No pulmonary nodules or masses. No infiltrates or effusions. No pneumothorax. VISUALIZED UPPER ABDOMEN: Small sliding hiatus hernia. Status post cholecystectomy. Otherwise, the vi sualized upper abdomen is normal. MUSCULOSKELETAL: Soft tissues: The superficial soft tissues are normal. Bones: Age appropriate degenerative changes of the spine. Osteoarthritic changes of the acromioclavic ular joints. IMPRESSION: 1. No definite pulmonary embolism. 2. No acute cardiopulmonary pathology. Reviewed, dictated and finalized at location A.
--- NOTE | 2024-06-20 10:41 | ED.SOB ---
HPI - SOB/Dyspnea General Chief Complaint: Shortness of Breath/Dyspnea Stated Complaint: sob Time Seen by Provider: 06/20/24 10:41 Source: patient Mode of arrival: ambulatory Limitations: no limitations History of Present Illness HPI Narrative: 69-year-old female with a history of obesity, KATIE, hypertension, CAD status post stents/cardiomyopathy with recent recurrent bronchitis presents to the ED with a 2 day history of -- chest congestion with shortness of breath -- cough productive of mucoid sputum no chest pain no fever or chills patient is a nonsmoker. No history of asthma. She has a history of multiple allergies. MD elicited complaint: shortness of breath and cough Onset (ago): day(s) ( One day) Severity: mild Exacerbating factors: exertion Relieving factors: nothing Known history of: other ( recurrent bronchitis) Associated symptoms: cough, wheezing, sputum production and chest congestion Treatment prior to arrival: none Related Data Home oxygen amount: none Home Medications Medication Instructions Recorded Confirmed bempedoic acid 180 mg-ezetimibe 10 1 tablet PO DAILY 04/22/22 06/20/24 mg tablet (Nexlizet) cholecalciferol (vitamin D3) 50 50 mcg PO DAILY 06/09/22 06/20/24 mcg (2,000 unit) capsule aspirin 81 mg chewable tablet 81 mg PO DAILY 06/16/22 06/20/24 carvedilol 3.125 mg tablet 12.5 mg PO Q12H 05/15/23 06/20/24 Allergies Allergy/AdvReac Type Severity Reaction Status Date / Time atorvastatin Allergy Unknown Verified 06/20/24 11:38 chlorthalidone Allergy Unknown Verified 06/20/24 11:38 latex Allergy Rash Verified 06/20/24 11:38 losartan Allergy Unknown Verified 06/20/24 11:38 valsartan Allergy Unknown Verified 06/20/24 11:38 Lixeglr-[id number]-GjF Reductase AdvReac Intermediate Muscle Pain Verified 06/20/24 11:37 Inhibitor Macrolide Antibiotics AdvReac Rash Verified 06/20/24 11:37 Penicillins AdvReac Rash Verified 06/20/24 11:37 Quinolones AdvReac Rash Verified 06/20/24 11:37 Sulfa (Sulfonamide AdvReac Rash Verified 06/20/24 11:37 Antibiotics) Review of Systems Review of Systems: All systems reviewed & are unremarkable except as noted in HPI and below Constitutional: Constitutional: Reports as per HPI and Reports no additional constitutional complaints Eyes: Eyes: Reports as per HPI and Reports no additional eye complaints ENT: Reports system reviewed and no additional complaints, except as documented and Reports as per HPI Cardiovascular: Cardiovascular: Reports as per HPI and Reports no additional cardiovascular complaints Respiratory: Respiratory: Reports as per HPI, Reports no additional respiratory complaints, Reports chest congestion, Reports cough, Reports dyspnea and Reports wheezing Gastrointestinal: Gastrointestinal: Reports as per HPI and Reports no additional gastrointestinal complaints Genitourinary: Genitourinary: Reports no additional female genitourinary complaints and Reports as per HPI Musculoskeletal: Musculoskeletal: Reports no additional musculoskeletal complaints and Reports as per HPI Integumentary/Breasts: Skin/Breast: Reports system reviewed and no additional complaints, except as docu and Reports as per HPI Neurologic: Reports system reviewed and no additional complaints, except as documented and Reports as per HPI Psychiatric: Psychiatric: Reports no additional psychiatric complaints and Reports as per HPI Endocrine: Endocrine: Reports no additional endocrine complaints and Reports as per HPI Hematologic/Lymphatic: Hematologic/Lymphatic: Reports no additional hematologic/lymphatic complaints and Reports as per HPI Allergic/Immunologic: Allergic/Immunologic: Reports no additional allergic/immunologic complaints and Reports as per HPI [facility] Past Medical History Medical History Bronchitis Cardiomyopathy Chronic pain Depression GERD (gastroesophageal reflux disease) Hyperlipidemia Hyperte
--- NOTE | 2024-06-20 10:55 | ECG_ITS ---
Test Date: 2024-06-20 11:19:58 Measurements Intervals [place] Rate: 70 P: 21 IA: 152 QRS: -55 QRSD: 169 T: 84 QT: 431 QTc: 467 Interpretive Statements SINUS RHYTHM LEFT AXIS DEVIATION [QRS AXIS < -30] LEFT BUNDLE BRANCH BLOCK [120+ ms QRS DURATION, 80+ ms Q/S IN V1/V2, 85+ ms R IN I/aVL/V5/V6] No previous ECG available for comparison Electronically Signed On 06-21-2024 09:35:18 CDT by Peri Galeano M.D.
[2024-06-20 11:11] LABS: Basophils Absolute Auto 0.08 K/mm3 (0.00-0.10); Basophils Percent Auto 1.3 % (0.0-1.0); Eosinophils Absolute Auto 0.44 K/mm3 (0.02-0.50); Eosinophils Percent Auto 7.3 % (1.0-6.0); Hematocrit 41.5 % (35.0-42.0); Hemoglobin 13.5 g/dL (11.7-13.8); Immature Granulocyte Absolute 0.01 K/mm3 (0.00-0.00); Immature Granulocyte Percent A 0.2 % (0.0-0.0); Lymphocytes Percent Auto 19.8 % (18.0-42.0); Mean Corpuscular HGB Conc 32.5 g/dL (32-36); Mean Corpuscular Hemoglobin 29.8 pg (27.0-31.0); Mean Corpuscular Volume 91.6 fL (78.0-102.0); Mean Platelet Volume 8.8 fl (9.2-11.8); Monocytes Absolute Auto 0.58 K/mm3 (0.10-0.90); Monocytes Percent Auto 9.6 % (2.0-11.0); Neutrophils Absolute Auto 3.74 K/mm3 (1.70-7.20); Neutrophils Percent Auto 61.8 % (50.0-70.0); Platelet Count Result 289 K/mm3 (150-420); Red Blood Count 4.53 M/mm3 (4.20-5.40); Red Cell Distribution Width 12.5 % (11.6-14.4); White Blood Count 6.1 K/mm3 (4.8-10.8)
[2024-06-20 11:24] LABS: Partial Thromboplastin Time 27.6 Sec (23.9-30.70); Prothrombin Time 10.5 Seconds (9.50-12.1)
[2024-06-20] MEDS: IPRATROPIUM 0.5 MG/ALBUTEROL SULFATE 2.5 MG AMPUL.NEB 3 ML INHALATION (11:24)
[2024-06-20 11:27] LABS: D Dimer 0.51 mg/L (0.19-0.50)
[2024-06-20 11:37] LABS: Alanine Aminotransferase 24 U/L (14-59); Albumin Level 3.3 g/dL (3.4-5.0); Alkaline Phosphatase 70 U/L (46-116); Anion Gap 8 mmol/L (4-12); Aspartate Amino Transferase 19 U/L (15-37); Bilirubin,Total 0.5 mg/dL (0.00-1.00); Blood Urea Nitrogen 22 mg/dL (7-18); Calcium 8.7 mg/dL (8.5-10.1); Carbon Dioxide 27 mmol/L (21-32); Chloride 105 mmol/L (98-108); Estimated CRCL calculation 59 ml/min; Estimated Glomerular Filt Rate 44; Glucose 112 mg/dL (70-99); NT Pro B Type Natriuretic Pept 650 pg/mL (0-125); Osmolality Calculated 294 mOsm/kg (285-295); Sodium 140 mmol/L (136-145); Total Protein 6.4 g/dL (6.4-8.2); Troponin I 13.2 ng/L (0.00-60.4)
[2024-06-20 11:46] LABS: SARS-CoV-2 RNA PCR Negative (Negative)
[2024-06-20 11:54] LABS: Influenza A QL RT-PCR Negative (Negative); Influenza B QL RT-PCR Negative (Negative); RSV RNA, RT-PCR Negative (Negative)
--- NOTE | 2024-06-20 12:05 | PC.NURSE ---
Patient being taken down to CT. Will start LR and antibiotics when patient returns
--- NOTE | 2024-06-20 12:41 | PC.NURSE ---
lab has finished drawing blood cultures, will get IV antibiotics started.
[2024-06-20] MEDS: DOXYCYCLINE 100 MG/NS 100 ML 100 MG/100 ML BAG IVPB (12:42)
[2024-06-20] MEDS: LACTATED RINGERS 500 ML 999 ML IV CONT (12:42)
[2024-06-20] MEDS: methylPREDNISolone SOD SUCC 40 MG VIAL IV PUSH (13:47)
--- NOTE | 2024-06-22 06:53 | PC.NURSE ---
Dr barahona looked over positive blood cultures. 1 positive at this time, no change to abx that patient was sent home on. Per ERP, we will wait for second set to come back to see if changes need to be made.
--- NOTE | 2024-06-22 12:43 | PC.NURSE ---
PRELIMINARY BLOOD CULTURE RESULTS, NO CHANGE.
== END 2024-06-20 14:43 | disposition home or self-care (01) ==
PROVIDERS: Emergency Provider Internal Medicine Critical Care Medicine; PCP Family Medicine
DX: J45.41 Moderate persistent asthma with (acute) exacerbation (principal); I12.9 Hypertensive chronic kidney disease with stage 1 through stage 4 chronic kidney disease, or unspecified chronic kidney disease; N18.32 Chronic kidney disease, stage 3b; I25.10 Atherosclerotic heart disease of native coronary artery without angina pectoris; Z79.82 Long term (current) use of aspirin; Z79.899 Other long term (current) drug therapy; Z20.822 Contact with and (suspected) exposure to COVID-19
CPT/HCPCS: 36415; 71045; 71275; 80053; 83605; 83880; 84484; 85025; 85380; 85610; 85730; 87040; 87637; 93005; 94640; 96365; 96367; 96375; 99284; J0696; J2919; J7120; Q9967

== ENCOUNTER 2024-07-06 15:36 | Outpatient (CLI) | payer MEDICARE, SELFPAY ==
--- NOTE | ~2024-07-06 | XR_ITS ---
CHEST RADIOGRAPH, PA AND LATERAL CLINICAL HISTORY: J40 - Bronchitis, not specified as acute or chronic . COMPARISON: 06/20/2024 TECHNIQUE: PA and lateral views of the chest. FINDINGS The cardiomediastinal silhouette is unremarkable. The lungs are clear. No significant peribronchial thickening is identified. Visualized osseous structures and soft tissues are unremarkable. IMPRESSION: No focal infiltrate or effusion. If clinical suspicion persists, cross-sectional imaging (noncontrast enhanced CT examination of the c hest) is suggested for further evaluation. Reviewed, dictated and finalized at location A. MAKER IMPRESSION: No focal infiltrate or effusion. If clinical suspicion persists, cross-sectional imaging (noncontrast enhanced C T examination of the chest) is suggested for further evaluation.
== END 2024-07-06 15:37 | disposition home or self-care (01) ==
LOC: CHSIMG 15:37
PROVIDERS: PCP Family Medicine; Visit Provider Physician Assistant Medical
DX: J40 Bronchitis, not specified as acute or chronic (principal)
CPT/HCPCS: 71046

== ENCOUNTER 2024-07-12 09:30 | Outpatient (RCR) | payer SELFPAY | END 2024-07-14 09:44 | disposition home or self-care (01) | LOC: CHSCPRIII 09:30 | PROVIDERS: PCP Family Medicine | DX: I50.9 Heart failure, unspecified (principal) | CPT/HCPCS: 99199 ==

== ENCOUNTER 2024-07-19 12:28 | Outpatient (CLI) | payer MEDICARE, SELFPAY ==
--- NOTE | 2024-07-19 16:47 | WPDPFTINT ---
PFT Procedure Performed PFT Procedure Performed Spirometry with Pre/Post Bronchodilator Plethysmography (Lung Vol) Diffusing Cap (DLCO) Flow Vol Loop PFT Interpretation This is a pulmonary function test with pre and post-bronchodilator spirometry, plethysmography and diffusing capacity. The test was performed and results interpreted in accordance with the 2019 and 2005 ATS/ERS Task Force guidelines respectively using the Global Lung Function Initiative-2012 reference equations. Patient demonstrated good effort and cooperation. Reproducibility criteria were met. The quality of the pre bronchodilator spirometry maneuver was Grade A and post bronchodilator spirometry maneuver was Grade A. Findings: Spirometry: There is decreased maximal expiratory airflow at all lung volumes with concave expiratory flow tracing. The contour the inspiratory flow tracing is normal. The pre bronchodilator FVC is 2.52 L, 70% predicted. The pre bronchodilator FEV1 is 1.45 L, 53% predicted. The pre bronchodilator FEV1: FVC ratio is 58%. The post bronchodilator FVC is 2.79 L, representing an 11% increase. The post bronchodilator FEV1 is 1.64 L, representing a 190 mL increase which corresponds to a 13% increase. The post bronchodilator FEV1: FVC ratio is 59%. Plethysmography: The total lung capacity is 5.73 L, 94% predicted. The functional residual capacity is 3.65 L, 104% predicted. The residual volume is 3.01 L, 119% predicted. Diffusing capacity: The diffusing capacity unadjusted for hemoglobin and carboxyhemoglobin is 18.3, 78% predicted. The diffusing capacity adjusted for alveolar volume is 3.83, 96% predicted. Impression: There is a moderately severe obstructive abnormality. There is no significant improvement after inhaling a single dose of albuterol as the absolute increase in the post bronchodilator FEV1 is less than 200 mL. The lung volumes are normal. The diffusing capacity is normal. There are no prior studies for comparison
== END 2024-07-19 12:29 | disposition home or self-care (01) ==
PROVIDERS: PCP Family Medicine; Visit Provider Nurse Practitioner Family
DX: R94.2 Abnormal results of pulmonary function studies (principal); J45.901 Unspecified asthma with (acute) exacerbation; J40 Bronchitis, not specified as acute or chronic
CPT/HCPCS: 94060; 94726; 94729

== ENCOUNTER 2024-09-02 11:31 | Outpatient (CLI) | payer MEDICARE, SELFPAY ==
--- NOTE | ~2024-09-02 | XR_ITS ---
XR chest 2V Ordering provider: Wen Martinez NP History: 69 years Female with . R09.89 - Other specified symptoms and signs involving the... . Comparison: None. FINDINGS: MEDIASTINUM: The cardiac silhouette is not enlarged. LUNGS: No infiltrates, effusions or pneumothorax. OTHER: No free air under the diaphragm. Degenerative spine. IMPRESSION: No acute cardiopulmonary pathology. Reviewed, dictated and finalized at location A. H MOSS GATHERER
== END 2024-09-02 11:32 | disposition home or self-care (01) ==
PROVIDERS: PCP Family Medicine
DX: R09.89 Other specified symptoms and signs involving the circulatory and respiratory systems (principal)
CPT/HCPCS: 71046

== ENCOUNTER 2024-09-21 12:35 | Outpatient (CLI) | payer MEDICARE, SELFPAY ==
--- NOTE | ~2024-09-21 | CT_ITS ---
EXAMINATION:CT chest high resolution wo ma DATE: 09/21/2024 13:04 INDICATION: Other specified symptoms and signs involving the circulatory and respiratory system. TECHNIQUE: Computed tomography (CT) of the chest was performed without intravenous contrast. Automate d exposure control and iterative reconstruction technique were employed. The dose-length product (DLP ) was 789.68 mGy-cm. COMPARISON: Chest CT 06/20/2024 FINDINGS: The lungs demonstrate minimal atelectasis. There is a stable 4 mm nodule left upper lobe, l ikely benign. There is a stable 4 mm nodule in left lower lobe, likely benign. No pleural effusion. T he heart size is normal. There are coronary artery calcifications. There are calcifications of the ao rtic valve. No pericardial effusion. There are changes of cholecystectomy. There are bridging endplat e osteophytes at multiple levels in the spine, consistent with diffuse idiopathic skeletal hyperostos is (DISH). IMPRESSION: 1. No acute cardiopulmonary disease. Reviewed, dictated and finalized at location B. OAT ENGINEER
== END 2024-09-21 12:36 | disposition home or self-care (01) ==
LOC: MICIMG 12:36
PROVIDERS: PCP Family Medicine
DX: R09.89 Other specified symptoms and signs involving the circulatory and respiratory systems (principal)
CPT/HCPCS: 71250

== ENCOUNTER 2024-10-03 12:24 | Outpatient (CLI) | payer MEDICARE, SELFPAY ==
--- OUTSIDE RECORDS SUMMARY | 2024-10-03 13:17 | XMS_ITS | Clinical Summary ---
Author Organization [facility] Address [address] [place] [id number] Care Team Providers Care Soldering Machine Setter Name Role Phone Cresencio Weber MD Primary Care Provider + [phone] Allergies Active Allergy Reactions Criticality Noted Date Comments Latex Itching Low 06/03/2022 Lisinopril Itching Low 06/03/2022 Macrolide Antibiotics Itching Low 06/03/2022 Penicillin Itching Low 06/03/2022 Quinolones Hives Medium 06/03/2022 Sulfa Hives Medium 06/03/2022 Medications cholecalcifero l (VITAMIN D-3) 2000 unit tablet Active aspirin 81 mg enteric coated tablet Take 1 tablet (81 mg total) by mouth daily Active oxybutynin XL (DITROPAN-XL) 5 mg 24 hr tablet Take 1 tablet (5 mg total) by mouth daily Active sertraline (ZOLOFT) 50 mg tablet Take 1 tablet (50 mg total) by mouth daily [address] (CYMBALTA) 30 mg capsule Take by mouth daily 3 Active albuterol 0.63 mg/3 mL nebulizer solution 3 mL (0.63 mg total) 4 Active azithromycin (ZITHROMAX) 250 mg tablet 1 tablet (250 mg total) 4 Active cefdinir (OMNICEF) 300 mg capsule Take 1 capsule (300 mg total) by mouth every 12 (twelve) hours 4 Active cefuroxime (CEFTIN) 500 mg tablet Take 1 tablet (500 mg total) by mouth every 12 (twelve) hours for 10 days 4 Active fluconazole (DIFLUCAN) 150 mg tablet 1 tablet (150 mg total) 4 Active levalbuterol (XOPENEX HFA) 45 mcg/actuation inhaler INHALE 2 PUFFS BY MOUTH EVERY 6 HOURS 4 Active predniSONE (DELTASONE) 20 mg tablet Take 1 tablet (20 mg) by mouth 2 (two) times a day 4 Active bempedoic acid-ezetimibe (Nexlizet) 180-10 mg tablet Take 1 tablet by mouth daily 90 tablet 3 4 Active carvediloL (COREG) 6.25 mg tablet TAKE 1 TABLET BY MOUTH TWICE A DAY WITH MEALS 180 tablet 3 5 Active carvediloL (COREG) 6.25 mg tablet Take 1 tablet (6.25 mg total) by mouth 2 (two) times a day with meals 180 tablet 3 3 09/06/19 25 Discontinued Active Problems Problem Noted Date Diagnosed Date Statin myopathy 11/06/2022 Assessment & Plan (07/05/2024 11:03 AM OPERATING ROOM SCHEDULER): On Nexlizet, LDL above goal at 88. Discussed improving dietary habits, also can consider PCSK9 inhibitor or Leqvio Chronic systolic heart failure ([facility]) 022 Assessment & Plan (07/05/2024 11:01 AM OPERATING ROOM SCHEDULER): Unchanged EF, 38%. Unable to tolerate Entresto, ARB, and SGLT2 inhibitor. Now unable to tolerate spironolactone due to hyperkalemia. Continue carvedilol, blood pressure is well controlled overall. Consider Verquvo, will give patient information about this, she was hesitant to try any other medications at this time. Assessment & Plan (12/07/2023 2:47 PM CDT): EF 30% today. He appears euvolemic on exam NYHA 3 symptoms. She has not had numerous medication intolerances and has not tolerated SGLT2 inhibitor or Entresto or ARB. We have had repeated discussions about ICD and she has not interested - continue carvedilol 6.25 b.I.d., try spironolactone 25 and check BMP in 1 week Assessment & Plan (05/12/2023 1:12 PM CDT): Primarily nonischemic cardiomyopathy though with coexisting single-vessel Coronary artery disease with EF 34% and improving symptoms now NYHA 2 after persists beating cardiac rehab. She is euvolemic on exam. She is on a suboptimal medication regimen due to intolerance of numerous different medications. - continue carvedilol 6.25 b.i.d. - discussed GANG WORKER but declines - continue cardiac rehab - will repeat echo at six-month follow-up to reassess ejection fraction; if it is stable or reduced from prior then will advocate to her again to retry spironolactone Assessment & Plan (11/06/2022 10:20 PM OPERATING ROOM SCHEDULER): Primarily nonischemic cardiomyopathy though with coexisting single-vessel Coronary artery disease with EF 34% and NYHA 3 symptoms. She is euvolemic on exam. She is on a suboptimal medication regimen due to intolerance of numerous different medications. In fact her carvedilol dose was significantly reduced due to episodic hypotension with associated symptoms at cardiac rehab; blood pressure is labile however and high readings as well. We have also discussed in depth likely benefit of GANG WORKER D given her persistently low ejection fraction and wide left bundle branch block however she adamantly declines. - increase carvedilol back to 6.25 b.i.d. - continue cardiac rehab Assessment & Plan (08/06/2022 4:53 PM OPERATING ROOM SCHEDULER): Primarily nonischemic cardiomyopathy though with coexisting single-vessel Coronary artery disease with EF 34% and NYHA 3 symptoms. She is grossly euvolemic on exam. Suboptimal medical therapy. We again discussed anticipated strong benefits of optimizing treatment based on current guidelines for her systolic heart failure. She remains very concerned about theoretic possibility of side effects associated with medicines despite discussing and expressing understanding of the rationale that they are clearly associated with substantial reduction in symptoms, hospitalization and mortality. She is amenable to trying Farxiga. She reports history of hyperkalemia with spironolactone so we will avoid this. She is very reluctant to consider trial of ARB due to which he reports as history of cough with losartan, which off the theoretically possible is of course much less common than with GARRETT inhibitors. She seemed theoretically open to trial of low-dose valsartan which we will consider after initiating Farxiga if tolerated. She would be a candidate for GANG WORKER D given her left bundle branch block if her EF does not improve with whenever medical therapy we can add; however after discussing today and explaining in detail the anticipated potential benefits in terms of symptoms, improvement in EF and prevention of sudden , she adamantly expresses that she would never consider device implant. - continue carvedilol 12.5 b.i.d. - add Farxiga 10 and check BMP in 2 weeks - if Farxiga tolerated will add low-dose valsartan if patient amenable - referral to cardiac rehab locally submitted Assessment & Plan (06/03/2022 4:30 PM CDT): Sounds like either mixed ischemic and nonischemic or primarily nonischemic cardiomyopathy given initial ejection fraction of 10% with only single-vessel mid LAD disease. Ejection fraction has since improved with most recent known value 35- 40%. She is on suboptimal medical therapy which consists of only a beta-santana. I discussed recommendation for 4 drug medical therapy to improve long-term outcomes; she previously failed Entresto due to hypotension. She reports history of cough with losartan and although we discussed that losartan generally does not cause cough christel to Garrett inhibitors, she was very concerned about this possible side effect and declined reinstitution of losartan. I suggested trying valsartan and she was still reluctant however will consider. We discussed possibility of SG L2 inhibitor, as well as Re trial of spironolactone depending on labs that we will obtain to check her kidney function and potassium. Overall she expressed a reluctance to add additional medicines despite discussion of well documented long-term outcome benefits in patients with her degree of systolic heart failure. We agreed on a strategy of obtaining basic labs and obtaining an updated echocardiogram for reassessment of current LV function and then will meet back in clinic to discuss whether she is interested in adding any therapies to her regimen. We also had brief discussion of ICD and candidacy based on current consensus guidelines, however she declines at this time. - cont coreg 25 bid - check labs and echo - f/u in 6 weeks Coronary artery disease invo lving [place] coronary artery of [place] heart without angina pectoris 06/03/2022 Assessment & Plan (07/05/2024 11:02 AM OPERATING ROOM SCHEDULER): Denying any complaints of angina. Continue beta-santana, aspirin, and Nexlizet Assessment & Plan (12/07/2023 2:47 PM CDT): History of mid LAD PCI and remains free of angina. - continue aspirin and Nexlizet, carvedilol Assessment & Plan (05/12/2023 1:12 PM CDT): History of mid LAD PCI and remains free of angina. - continue aspirin and Nexlizet, carvedilol Assessment & Plan (11/06/2022 10:18 PM OPERATING ROOM SCHEDULER): History of mid LAD PCI and remains free of angina. She reports history of diffuse myalgias and joint pain prompting discontinuation of multiple different statin agents and therefore is on Nexlizet which she seems to be tolerating. - continue aspirin and Nexlizet, carvedilol Assessment & Plan (08/06/2022 4:54 PM OPERATING ROOM SCHEDULER): History of mid LAD PCI and remains free of angina. She reports history of diffuse myalgias and joint pain prompting discontinuation of multiple different statin agents and therefore is on Nexlizet which she seems to be tolerating. Will continue this and aspirin Assessment & Plan (06/03/2022 4:33 PM CDT): History of mid LAD stenting which was patent on last catheterization in 2020, and currently without angina. Currently on non statin lipid-lowering therapy due to personal concerns about potential side effects of statin class. We briefly discussed significant long-term benefit of statin therapy for patients with previous coronary revascularization, especially given she personally tolerated statins in the past without experiencing side effects, however she is not interested in statin therapy at this time. Will continue aspirin and Nexlizet for the time being and can discuss further at future visits Encounters Date Type Department Care Team Description 07/25/2024 Telephone [facility] Cardiology [address] [place] [address] Karthikeyan Cotton MD Med Management 07/11/2024 1:10 PM OPERATING ROOM SCHEDULER Office Visit [facility] Obstetrics and Gynecology [address] [place] [address] [place] [address] Caprice Christianson MD Endometrial cancer (CMS/HCC) (HCC) (Primary Dx) 07/05/2024 10:30 AM OPERATING ROOM SCHEDULER Office Visit [facility] Cardiology [address] [place] [address] Razia Hernandez NP Coronary artery disease involving [place] coronary artery of [place] heart without angina pectoris (Primary Dx); Chronic systolic heart failure (CMS/HCC) (HCC); Statin myopathy from Last 3 Months Surgical History Surgery Date Site/Laterality Comments TONSILLECTOMY APPENDECTOMY CHOLECYSTECTOMY HYSTERECTOMY Medical History Medical History Date Comments Asthma KATIE (obstructive sleep apnea) Hypercholesteremia Hypertension Heart failure (HCC) Uterine cancer (CMS/HCC) (HCC) Basal cell carcinoma Family History Medical History Relation Name Comments Brain Aneurysm Brother Hypertension Brother Alzheimer's disease Sister Stroke Sister Relation Name Status Comments Brother Sister Social History Tobacco Use Types Packs/Day Years Used Date Smoking Tobacco: Never Smokeless Tobacco: Never Tobacco Cessation:Counseling Given: Not Answered Comments No Sex and Gender Information Value Date Recorded Sex Assigned at Not on file Legal Sex Female 11:35 AM CDT Gender Identity Not on file Sexual Orientation Not on file Obstetrics History Para Term AB IAB SAB Ectopic Multiple Livin g Live Births 3 2 2 Date Outcome GA Total Labor Labor/2nd/3rd Weight Sex Type Anes PTL Dianna A1 A5 Name Clin AB AB Last Filed Vital Signs Vital Sign Reading Time Taken Comments Blood Pressure 147/85 07/11/2024 1:08 PM OPERATING ROOM SCHEDULER Pulse 73 07/11/2024 1:08 PM OPERATING ROOM SCHEDULER Temperature 36.4 ??C (97.5 ??F) 07/11/2024 1:08 PM CS T Respiratory Rate 16 07/11/2024 1:08 PM OPERATING ROOM SCHEDULER Oxygen Saturation 97% 07/11/2024 1:08 PM OPERATING ROOM SCHEDULER Inhaled Oxygen Concentration - - Weight 135.7 kg (299 lb 1.6 oz) 07/11/2024 1:08 PM OPERATING ROOM SCHEDULER Height 177.8 cm (5' 10 ) 07/05/2024 10: 13 AM OPERATING ROOM SCHEDULER Body Mass Index 42.92 07/05/2024 10:13 AM OPERATING ROOM SCHEDULER Plan of Treatment Health Maintenance Due Date Last Done Comments Breast Cancer Screening-Mammogram 1954 Colon Cancer Screening-Colonoscopy 1954 Depression Screening 1954 Fall Risk Assessment 1954 Hepatitis C Screening 1954 Osteoporosis Screening-Bone Density Scan 1954 Pneumococcal vaccine 65+ (1 of 2 - PCV) 02/06/1960 DTaP/Tdap/Td Vaccine (1 - Tdap) 1965 Hepatitis B Screening 02/06/1972 Zoster Vaccine (1 of 2) 02/06/2004 Well Visit 65+ 2019 Influenza Vaccine (#1) 2024 Procedures Procedure Name Priority Date/Time Associated Diagnosis Comments POCT LIPID PANEL Routine 07/05/2024 10:3 1 AM OPERATING ROOM SCHEDULER Coronary artery disease involving [place] coronary artery of [place] heart without angina pectoris from Last 3 Months Results * POCT lipid panel (07/05/2024 10:31 AM OPERATING ROOM SCHEDULER) Cholesterol, POC 162 L - H mg/dL HDL, POC 50 L - H mg/dL Triglycerides, POC 119 L - H mg/dL LDL Cholesterol POC 88 L - H mg/dL Chol/HDL Ratio, POC 3.2 L - H Non-HDL Cholesterol, POC 112 L - H mg/dL Cholesterol Total, POC 162 L - H mg/dL Capillary blood 07/05/2024 1 0:31 AM OPERATING ROOM SCHEDULER Razia Hernandez NP POINT OF CARE TEST ORD ERABLES Final Result from Last 3 Months Insurance MEDICARE SOLUTIONS [place] [id number] MEDICARE SOLUTIONS Member Subscriber Plan / Payer (Ef fective 2022-Present) Name:Beverly Lucero Relation to Subscriber:Self Name:Beverly Lucero Payer ID:[id number] (NAIC) Type:UHC MEDICARE Address: [place] [id number] Care Teams Soldering Machine Setter Relationship Specialty Start Date End Date Cresencio Weber MD PCP - General Family Medicine 11/05/22
--- OUTSIDE RECORDS SUMMARY | 2024-10-03 13:17 | XMS_ITS | Referral Summary ---
Author Organization [facility] D Address [address] [place] [id number] Care Team Providers Care Tool And Fixture Repairer Name Role Phone Cresencio Weber MD Primary Care Provider [phone] Encounters Date Type Department Care Team Description 07/25/2024 Telephone [facility] Cardiology [address] [place] [address] [address] [place] [address] Karthikeyan Cotton MD Med Management 07/11/2024 1:10 PM UNIT REACTOR OPERATOR Office Visit [facility] Obstetrics and Gynecology [address] [facility] Medicine 13th [place] [address] [place] [address] Caprice Christianson MD Endometrial cancer (CMS/HCC) (HCC) (Primary Dx) 07/05/2024 10:30 AM UNIT REACTOR OPERATOR Office Visit [facility] Cardiology [address] [place] [address] [address] [place] [address] Razia Hernandez NP Coronary artery disease involving [place] coronary artery of [place] heart without angina pectoris (Primary Dx); Chronic systolic heart failure (CMS/HCC) (HCC); Statin myopathy from Last 3 Months Allergies Active Allergy Reactions Criticality Noted Date [...] 11/06/2022 Assessment & Plan (07/05/2024 11:03 AM UNIT REACTOR OPERATOR): On Nexlizet, LDL above goal at 88. Discussed improving dietary habits, also can consider PCSK9 inhibitor or Leqvio Chronic systolic heart failure ([facility]) Assessment & Plan (07/05/2024 11:01 AM UNIT REACTOR OPERATOR): Unchanged EF, 38%. Unable to tolerate Entresto, [...] - continue carvedilol 6.25 b.i.d. - discussed SOFTWARE DEVELOPMENT TEST ENGINEER but declines - continue cardiac rehab - will repeat echo at six-month follow-up to reassess ejection fraction; if it is stable or reduced from prior then will advocate to her again to retry spironolactone Assessment & Plan (11/06/2022 10:20 PM UNIT REACTOR OPERATOR): Primarily nonischemic cardiomyopathy though with coexisting single-vessel [...] also discussed in depth likely benefit of SOFTWARE DEVELOPMENT TEST ENGINEER D given her persistently low ejection fraction and wide left bundle branch block however she adamantly declines. - increase carvedilol back to 6.25 b.i.d. - continue cardiac rehab Assessment & Plan (08/06/2022 4:53 PM UNIT REACTOR OPERATOR): Primarily nonischemic cardiomyopathy though with coexisting single-vessel [...] of course much less common than with SRAVAN inhibitors. She seemed theoretically open to trial of low-dose valsartan which we will consider after initiating Farxiga if tolerated. She would be a candidate for SOFTWARE DEVELOPMENT TEST ENGINEER D given her left bundle branch block [...] generally does not cause cough christel to Sravan inhibitors, she was very concerned about this [...] 6 weeks Coronary artery disease invo lving [place] coronary artery of [place] heart without angina pectoris 06/03/2022 Assessment & Plan (07/05/2024 11:02 AM UNIT REACTOR OPERATOR): Denying any complaints of angina. Continue beta-santana, aspirin, and Nexlizet Assessment & Plan (12/07/2023 2:47 PM CDT): History of mid LAD PCI and remains free of angina. - continue aspirin and Nexlizet, carvedilol Assessment & Plan (05/12/2023 1:12 PM CDT): History of mid LAD PCI and remains free of angina. - continue aspirin and Nexlizet, carvedilol Assessment & Plan (11/06/2022 10:18 PM UNIT REACTOR OPERATOR): History of mid LAD PCI and remains free of angina. She reports history of diffuse myalgias and joint pain prompting discontinuation of multiple different statin agents and therefore is on Nexlizet which she seems to be tolerating. - continue aspirin and Nexlizet, carvedilol Assessment & Plan (08/06/2022 4:54 PM UNIT REACTOR OPERATOR): History of mid LAD PCI and remains [...] and can discuss further at future visits Social History Tobacco Use Types Packs/Day Years Used Date Smoking Tobacco: Never Smokeless Tobacco: Never Tobacco Cessation:Counseling Given: Not Answered Comments No Sex and Gender Information Value Date Recorded Sex Assigned at Not on file Legal Sex Female 11:35 AM CDT Gender Identity Not on file Sexual Orientation Not on file Last Filed Vital Signs Vital Sign Reading Time Taken Comments Blood Pressure 147/85 07/11/2024 1:08 PM UNIT REACTOR OPERATOR Pulse 73 07/11/2024 1:08 PM UNIT REACTOR OPERATOR Temperature 36.4 ??C (97.5 ??F) 07/11/2024 1:08 PM CS T Respiratory Rate 16 07/11/2024 1:08 PM UNIT REACTOR OPERATOR Oxygen Saturation 97% 07/11/2024 1:08 PM UNIT REACTOR OPERATOR Inhaled Oxygen Concentration - - Weight 135.7 kg (299 lb 1.6 oz) 07/11/2024 1:08 PM UNIT REACTOR OPERATOR Height 177.8 cm (5' 10 ) 07/05/2024 10: 13 AM UNIT REACTOR OPERATOR Body Mass Index 42.92 07/05/2024 10:13 AM UNIT REACTOR OPERATOR Plan of Treatment Not on file Procedures Procedure Name Priority Date/Time Associated Diagnosis Comments POCT LIPID PANEL Routine 07/05/2024 10:3 1 AM UNIT REACTOR OPERATOR Coronary artery disease involving [place] coronary artery of [place] heart without angina pectoris from Last 3 Months Results * POCT lipid panel (07/05/2024 10:31 AM UNIT REACTOR OPERATOR) Cholesterol, POC 162 L - H mg/dL HDL, POC 50 L - H mg/dL Triglycerides, POC 119 L - H mg/dL LDL Cholesterol POC 88 L - H mg/dL Chol/HDL Ratio, POC 3.2 L - H Non-HDL Cholesterol, POC 112 L - H mg/dL Cholesterol Total, POC 162 L - H mg/dL Capillary blood 07/05/2024 1 0:31 AM UNIT REACTOR OPERATOR Razia Hernandez NP POINT OF CARE TEST ORD ERABLES Final Result from Last 3 Months Insurance MEDICARE [employer] Member Subscriber Plan / Payer (Ef fective 2022-Present) Name:Beverly Lucero Relation to Subscriber:Self Name:Beverly Lucero Payer ID:[id number] (NAIC) Type:[facility] MEDICARE Address: [place] [phone] MEDICARE SOLUTIONS Member Subscriber Plan / Payer (Ef fective 2022-Present) Name:Beverly Lucero Relation to Subscriber:Self Name:Beverly Lucero Payer ID:[id number] (NAIC) Type:[facility] MEDICARE Address: [place] [phone] MEDICARE SOLUTIONS Care Teams Tool And Fixture Repairer Relationship Specialty Start Date End Date Cresencio Weber MD PCP - General Family Medicine 11/05/22
[2024-10-03 13:48] LABS: SARS-CoV-2 RNA PCR Negative (Negative)
[2024-10-03 13:52] LABS: Influenza A QL RT-PCR Positive (Negative); Influenza B QL RT-PCR Negative (Negative); RSV RNA, RT-PCR Negative (Negative)
== END 2024-10-03 12:25 | disposition home or self-care (01) ==
PROVIDERS: PCP Family Medicine; Visit Provider Physician Assistant
DX: R68.89 Other general symptoms and signs (principal)
CPT/HCPCS: 87637

== ENCOUNTER 2024-11-08 14:00 | Observation (INO) | payer MEDICARE, SELFPAY ==
[2024-11-08] VITALS (31 sets, daily range): BP systolic 95–153; BP diastolic 52–92; PULSE 73–102; RESP 16–28; TEMP 36.7–36.8; O2SAT 90–100; BMI 39.9
--- NOTE | ~2024-11-08 | XR_ITS ---
EXAMINATION: XR chest 1V portable DATE: 11/08/2024 14:52 INDICATION: Shortness of breath. Cough. TECHNIQUE: A single frontal view of the chest was obtained. COMPARISON: Chest 2 views 09/02/2024, chest CT 09/21/2024 FINDINGS: There is no pneumonia, pleural effusion, or pneumothorax. The heart size is normal. IMPRESSION: 1. No acute cardiopulmonary disease. Reviewed, dictated and finalized at location B.
--- NOTE | 2024-11-08 14:25 | ED_ITS ---
HPI - SOB/Dyspnea General Chief Complaint: Shortness of Breath/Dyspnea Stated Complaint: shortness of breath Time Seen by Provider: 11/08/24 14:25 Source: patient and family Mode of arrival: ambulatory History of Present Illness HPI Narrative: 69 years old white female came to the ED with her daughter by private car complaining of shortness of breath. History of hypertension, hyperlipidemia, coronary stents, uterine cancer, and asthma. 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 then referred to ENT who have seen her today and was told that her symptom Related Data Home Medications ?Medication ?Instructions ?Recorded ?Confirmed ?Last Taken ?Type bempedoic acid 180 mg-ezetimibe 10 1 tablet PO DAILY 04/22/22 09/26/24 Unknown History mg tablet (Nexlizet) cholecalciferol (vitamin D3) 50 50 mcg PO DAILY 06/09/22 09/26/24 Unknown History mcg (2,000 unit) capsule aspirin 81 mg chewable tablet 81 mg PO DAILY 06/16/22 09/26/24 Unknown History carvedilol 3.125 mg tablet 12.5 mg PO Q12H 05/15/23 09/26/24 Unknown History Allergies Allergy/AdvReac Type Severity Reaction Status Date / Time atorvastatin Allergy Unknown Verified 11/08/24 14:09 chlorthalidone Allergy Unknown Verified 11/08/24 14:09 latex Allergy Rash Verified 11/08/24 14:09 losartan Allergy Unknown Verified 11/08/24 14:09 valsartan Allergy Unknown Verified 11/08/24 14:09 [id number] Reductase AdvReac Intermediate Muscle Pain Verified 11/08/24 14:09 Inhibitor Macrolide Antibiotics AdvReac Rash Verified 11/08/24 14:09 Penicillins AdvReac Rash Verified 11/08/24 14:09 Quinolones AdvReac Rash Verified 11/08/24 14:09 Sulfa (Sulfonamide AdvReac Rash Verified 11/08/24 14:09 Antibiotics) Review of Systems 2 Review of Systems: All systems reviewed & are unremarkable except as noted in HPI and below PMFSH Past Medical History Medical History Asthma exacerbation, mild Asthma exacerbation Bronchitis Right ankle pain Right foot pain ITB syndrome Chronic pain Depression KATIE (obstructive sleep apnea) Cardiomyopathy Internal derangement of right knee GERD (gastroesophageal reflux disease) Uterine cancer Hyperlipidemia Hypertension Surgical History Surgical History History of heart artery stent [address] Vazquez/SHELIA Larios History of cholecystectomy 2013 History of tonsillectomy 1961 History of appendectomy 1961 History of total abdominal hysterectomy Family History Family History Father AA (aortic aneurysm) Mother Acute myocardial infarction Sibling COPD (chronic obstructive pulmonary disease) Hypertension Thyroid activity decreased Other Aneurysm Arthritis Asthma Brain tumor Carcinoma of colon Diabetes mellitus Heart disease Hyperlipidemia Neuropathy Skin cancer Social History Social History Smoking status: Never smoker Second hand tobacco smoke exposure: Yes Alcohol intake: never Substance use: never Substance use type: does not use Do You Feel Safe in your Home?: Yes Lack of Transportation: No Lack of Food: Never True Current Housing: I Have Housing Concerned About Future Housing: No Difficulty Paying Gas/Electric Bills: No Difficulty Paying for Meds: No Currently Unemployed: No Education: High School Diploma/GED Difficulty w/ Childcare or Family Care: No Living arrangements: alone Occupation/Education: retired Additional occupation/education comments: [employer] Gender identity (if verbalized by the patient): Female Exam 2 Narrative: General appearance: Well-developed, well-nourished , intermittent coughing, labored breathing, audible wheezing Skin: Normal color Head: Normocephalic, nontraumatic Eyes: Clear conjunctiva ENT: Oropharynx normal, ears normal, nose normal Neck: Supple, nontender Chest and respiratory: diffuse wheezing bilaterally mainly expiratory Heart: Regular rate/rhythm Abdomen: Soft, nontender, no organomegaly, quiet bowel sounds Musculoskeletal: Normal range of motion, nontender back Neurologic: Alert and oriented ?3, FIELD TECH is normal as tested, no gross motor deficit Course Vital Signs Vital signs: Vital Signs Temperature 36.7 C 11/08/24 14:00 Pulse Rate 95 11/08/24 14:00 Respiratory Rate 28 H 11/08/24 14:00 Blood Pressure 137/92 H 11/08/24 14:00 Pulse Oximetry 95 11/08/24 14:00 Oxygen Delivery Room Air 11/08/24 14:00 Temperature 36.7 C 11/08/24 14:00 Pulse Rate 75 11/08/24 15:30 Respiratory Rate 17 11/08/24 15:30 Blood Pressure 134/72 11/08/24 15:30 Pulse Oximetry 100 11/08/24 15:31 Oxygen Delivery Room Air 11/08/24 14:00 MDM - SOB/Dyspnea MDM Narrative Medical decision making narrative: patient came with wheezing and a productive cough star Vital signs showing respiratory rate 28 otherwise within normal limit Physical examination consistent with diffuse generalized wheezing bilaterally Differential diagnosis asthma exacerbation, pneumonia, pleural effusion, congestive heart failure, less likely coronary artery disease Blood workup today includes CBC, CMP, BNP, TROPONIN SHOWED BNP 22, CREATININE 1.2 , BNP 619 OTHERWISE WITHIN NORMAL LIMIT. ABG ON ROOM AIR SHOWING PH OF 7.4, PO2 47, PCO2 36.6, OX SATURATION 84.6% ON ROOM AIR CHEST X-RAY SHOWED NO ACUTE ABNORMALITIES DIAGNOSIS ACUTE HYPOXIC RESPIRATORY FAILURE SECONDARY TO ASTHMA /COPD EXACERBATION ADMIT TO HOSPITALIST Differential Diagnosis Differential diagnosis: Likely other ( ABOVE) Medical Records Attestation: I reviewed the patient's medical records. Lab Data Attestation: I reviewed the patient's lab results. 11/08/24 14:41 11/08/24 14:41 Labs: Lab Results 11/08/24 11/08/24 Range/Units 14:30 14:41 WBC 7.3 (4.8-10.8) K/mm3 RBC 4.68 (4.20-5.40) M/mm3 Hgb 13.5 (11.7-13.8) g/dL Hct 42.5 H (35.0-42.0) % MCV 90.8 (78.0-102.0) fL MCH 28.8 (27.0-31.0) pg MCHC 31.8 L (32-36) g/dL RDW 13.0 (11.6-14.4) % Plt Count 340 (150-420) K/mm3 MPV 8.8 L (9.2-11.8) fl Immature Gran % (Auto) 0.3 H (0.0-0.0) % Neut % (Auto) 61.9 (50.0-70.0) % Lymph % (Auto) 19.7 (18.0-42.0) % [place] % (Auto) 8.5 (2.0-11.0) % Eos % (Auto) 8.4 H (1.0-6.0) % Baso % (Auto) 1.2 H (0.0-1.0) % Lymph # (Auto) 1.43 (1.10-4.50) K/mm3 [place] # (Auto) 0.62 (0.10-0.90) K/mm3 Eos # (Auto) 0.61 H (0.02-0.50) K/mm3 Baso # (Auto) 0.09 (0.00-0.10) K/mm3 Abs Immat Gran (auto) 0.02 H (0.00-0.00) K/mm3 Absolute Neuts (auto) 4.49 (1.70-7.20) K/mm3 Absolute Nucleated RBC 0.00 (0.00-0.00) K/mm3 Nucleated RBC % 0.0 (0-0.0) % PT 10.5 (9.50-12.1) Seconds INR 0.9 APTT 27.7 (23.9-30.70) Sec Sodium 140 (136-145) mmol/L Potassium 3.9 (3.5-5.1) mmol/L Chloride 104 (98-108) mmol/L Carbon Dioxide 29 (21-32) mmol/L Anion Gap 7 (4-12) mmol/L BUN 22 H (7-18) mg/dL Creatinine 1.27 H (0.55-1.02) mg/dL Estim Creat Clear Calc 56 ml/min Estimated GFR 42 L (59 - ) Glucose 107 H (70-99) mg/dL Calculated Osmolality 293 (285-295) mOsm/kg Calcium 9.2 (8.5-10.1) mg/dL Magnesium 2.2 (1.8-2.4) mg/dL Total Bilirubin 0.4 (0.00-1.00) mg/dL AST 18 (15-37) U/L ALT 28 (14-59) U/L Alkaline Phosphatase 85 (46-116) U/L Troponin I 11.3 (0.00-60.4) ng/L NT-Pro-B Natriuret Pep 619 H (0-125) pg/mL Total Protein 7.3 (6.4-8.2) g/dL Albumin 3.9 (3.4-5.0) g/dL Influenza A (RT-PCR) Negative (Negative) Influenza B (RT-PCR) Negative (Negative) RSV (RT-PCR) Negative (Negative) SARS-CoV-2 RNA (RT-PCR) Negative (Negative) ABG Data ABG results: 11/08/24 14:41 Puncture Site Right radial ABG pH 7.43 ABG pCO2 36.6 ABG pO2 47.0 L ABG HCO3 23.9 ABG O2 Saturation 84.6 L ABG Base Excess 0.0 Oxyhemoglobin 84.1 L O2 Delivery Device Room air O2 Liters/Min 0.0 Imaging Data Radiologist's impression: Impressions Chest X-Ray 11/08/24 14:54 IMPRESSION: 1. No acute cardiopulmonary disease. Critical Care Time Critical Care Time Critical Care Time: No Discharge Plan Discharge Clinical Impression: Acute and chronic respiratory failure with hypoxia, Asthma exacerbation Patient Disposition: Still a Patient Condition: Stable Additional Instructions: ADMIT TO HOSPITALIST Patient Language: [place] Prescriptions: No Action carvedilol 3.125 mg tablet 12.5 mg PO Q12H Rx Instructions: must administer with a meal/food Nexlizet 180-10 mg Tablet 1 tablet PO DAILY cholecalciferol (vitamin D3) 50 mcg (2,000 unit) capsule 50 mcg PO DAILY aspirin 81 mg tablet,chewable 81 mg PO DAILY albuterol sulfate 90 mcg/actuation HFA aerosol inhaler 1 - 2 puff inhalation Q4-6H PRN (Reason: shortness of breath or wheezing) Qty: 8.5 2RF fluticasone propionate [Flonase Allergy Relief] 50 mcg/actuation spray,suspension 1 spray intranasal DAILY Qty: 18.2 0RF Rx Instructions: administer into each nostril albuterol sulfate 2.5 mg/0.5 mL solution for nebulization 2.5 mg inhalation Q20M PRN (Reason: shortness of breath or wheezing) Qty: 30 2RF Rx Instructions: for up to 3 doses, then ok to give 2.5-10mg NEB q1-4 hours as needed. fluconazole 150 mg tablet 150 mg PO ONCE Qty: 2 0RF Rx Instructions: repeat in 72 hours if still with symptoms. prednisone 10 mg tablet See Rx Instructions PO DAILY Qty: 34 0RF Rx Instructions: 4 tabs daily x 4 days; then 3 tabs daily x 3 days, then 2 tabs daily x 3 days, then 1 tab daily x 3 days. albuterol sulfate 0.63 mg/3 mL solution for nebulization 0.63 mg inhalation Q4-6H PRN (Reason: shortness of breath or wheezing) Qty: 75 0RF levalbuterol tartrate [Xopenex HFA] 45 mcg/actuation HFA aerosol inhaler 2 inh inhalation Q6H Qty: 15 3RF Breztri Aerosphere 160-9-4.8 mcg/actuation HFA aerosol inhaler 2 inh inhalation BID Qty: 32.1 3RF Rx Instructions: Rinse mouth and spit after each use. Use with spacer. Follow-up/Referrals: Cresencio Weber MD [Primary Care Provider] -
[2024-11-08 14:45] LABS: HCO3 ABG 23.9 mmol/L (23-29); Oxygen Saturation ABG 84.6 % (95-97); Oxyhemoglobin 84.1 % (94-100); PCO2 ABG 36.6 mmHg (35-45); pH ABG 7.43 (7.35-7.45)
[2024-11-08 14:47] LABS: Device ROOM AIR; Modified Allen's Test Pass; Site Drawn RIGHT RADIAL
[2024-11-08 14:49] LABS: Basophils Absolute Auto 0.09 K/mm3 (0.00-0.10); Basophils Percent Auto 1.2 % (0.0-1.0); Eosinophils Absolute Auto 0.61 K/mm3 (0.02-0.50); Eosinophils Percent Auto 8.4 % (1.0-6.0); Hematocrit 42.5 % (35.0-42.0); Hemoglobin 13.5 g/dL (11.7-13.8); Immature Granulocyte Absolute 0.02 K/mm3 (0.00-0.00); Immature Granulocyte Percent A 0.3 % (0.0-0.0); Lymphocytes Absolute Auto 1.43 K/mm3 (1.10-4.50); Lymphocytes Percent Auto 19.7 % (18.0-42.0); Mean Corpuscular HGB Conc 31.8 g/dL (32-36); Mean Corpuscular Hemoglobin 28.8 pg (27.0-31.0); Mean Corpuscular Volume 90.8 fL (78.0-102.0); Mean Platelet Volume 8.8 fl (9.2-11.8); Monocytes Absolute Auto 0.62 K/mm3 (0.10-0.90); Monocytes Percent Auto 8.5 % (2.0-11.0); Neutrophils Absolute Auto 4.49 K/mm3 (1.70-7.20); Neutrophils Percent Auto 61.9 % (50.0-70.0); Platelet Count Result 340 K/mm3 (150-420); Red Blood Count 4.68 M/mm3 (4.20-5.40); White Blood Count 7.3 K/mm3 (4.8-10.8)
[2024-11-08] MEDS: ALBUTEROL SULFATE NEB 2.5 MG/3 ML INH 10 MG INHALATION (14:51)
[2024-11-08] MEDS: IPRATROPIUM BR 0.02% INH SOLN 0.5 MG/2.5 ML VIAL INHALATION (14:52)
[2024-11-08] MEDS: methylPREDNISolone SOD SUCC 125 MG VIAL IV PUSH (14:58)
[2024-11-08 15:03] LABS: INR 0.9; Partial Thromboplastin Time 27.7 Sec (23.9-30.70); Prothrombin Time 10.5 Seconds (9.50-12.1)
[2024-11-08 15:10] LABS: Alanine Aminotransferase 28 U/L (14-59); Albumin Level 3.9 g/dL (3.4-5.0); Alkaline Phosphatase 85 U/L (46-116); Anion Gap 7 mmol/L (4-12); Aspartate Amino Transferase 18 U/L (15-37); Bilirubin,Total 0.4 mg/dL (0.00-1.00); Blood Urea Nitrogen 22 mg/dL (7-18); Calcium 9.2 mg/dL (8.5-10.1); Carbon Dioxide 29 mmol/L (21-32); Chloride 104 mmol/L (98-108); Estimated CRCL calculation 56 ml/min; Estimated Glomerular Filt Rate 42; Glucose 107 mg/dL (70-99); Magnesium 2.2 mg/dL (1.8-2.4); NT Pro B Type Natriuretic Pept 619 pg/mL (0-125); Osmolality Calculated 293 mOsm/kg (285-295); Potassium 3.9 mmol/L (3.5-5.1); Sodium 140 mmol/L (136-145); Total Protein 7.3 g/dL (6.4-8.2); Troponin I 11.3 ng/L (0.00-60.4)
[2024-11-08 15:25] LABS: Influenza A QL RT-PCR Negative (Negative); Influenza B QL RT-PCR Negative (Negative); RSV RNA, RT-PCR Negative (Negative); SARS-CoV-2 RNA PCR Negative (Negative)
--- OUTSIDE RECORDS SUMMARY | 2024-11-08 15:54 | XMS_ITS | Referral Summary ---
Author Organization [facility] D Address [address] [place] [address] Care Team Providers Care Associate Engineer Name Role Phone Cresencio Weber MD Primary Care Provider [phone] Encounters Date Type Department Care Team Description 11/07/2024 Telephone [facility] Cardiology [address] [facility] [address] [place] [address] Karthikeyan Cotton MD from Last 3 Months Allergies Active Allergy Reactions Criticality Noted Date Comments Latex Itching Low 06/03/2022 Lisinopril Itching Low 06/03/2022 Macrolide Antibiotics Itching Low 06/03/2022 Penicillin Itching Low 06/03/2022 Quinolones Hives Medium 06/03/2022 Sulfa Hives Medium 06/03/2022 Medications cholecalciferol (VITAMIN D-3) 2000 unit tablet Active aspirin 81 mg enteric coated tablet Take 1 tablet (81 mg total) by mouth daily Active oxybutynin XL (DITROPAN-XL) 5 mg 24 hr tablet Take 1 tablet (5 mg total) by mouth daily Active sertraline (ZOLOFT) 50 mg tablet Take 1 tablet (50 mg total) by mouth daily 10/29/[address] (CYMBALTA) 30 mg capsule Take by mouth daily 03/24/2023 Active albuterol 0.63 mg/3 mL nebulizer solution 3 mL (0.63 mg total) 06/20/2024 Active azithromycin (ZITHROMAX) 250 mg tablet 1 tablet (250 mg total) 07/06/2024 Active cefdinir (OMNICEF) 300 mg capsule Take 1 capsule (300 mg total) by mouth every 12 (twelve) hours 06/20/2024 Active cefuroxime (CEFTIN) 500 mg tablet Take 1 tablet (500 mg total) by mouth every 12 (twelve) hours for 10 days 05/10/2024 Active fluconazole (DIFLUCAN) 150 mg tablet 1 tablet (150 mg total) 05/10/2024 Active levalbuterol (XOPENEX HFA) 45 mcg/actuation inhaler INHALE 2 PUFFS BY MOUTH EVERY 6 HOURS 06/20/2024 Active predniSONE (DELTASONE) 20 mg tablet Take 1 tablet (20 mg) by mouth 2 (two) times a day 06/20/2024 Active bempedoic acid-ezetimibe (Nexlizet) 180-10 mg tablet Take 1 tablet by mouth daily 90 tablet 3 07/18/2024 Active carvediloL (COREG) 6.25 mg tablet TAKE 1 TABLET BY MOUTH TWICE A DAY WITH MEALS 180 tablet 3 09/06/2024 Active Active Problems Problem Noted Date Diagnosed Date Statin myopathy 11/06/2022 Assessment & Plan (07/05/2024 11:03 AM GEOPOLITICS TEACHER): On Nexlizet, LDL above goal at 88. Discussed improving dietary habits, also can consider PCSK9 inhibitor or Leqvio Chronic systolic heart failure 06/03/2022 Assessment & Plan (07/05/2024 11:01 AM GEOPOLITICS TEACHER): Unchanged EF, 38%. Unable to tolerate Entresto, [...] - continue carvedilol 6.25 b.i.d. - discussed THEATRICAL PERFORMER but declines - continue cardiac rehab - will repeat echo at six-month follow-up to reassess ejection fraction; if it is stable or reduced from prior then will advocate to her again to retry spironolactone Assessment & Plan (11/06/2022 10:20 PM GEOPOLITICS TEACHER): Primarily nonischemic cardiomyopathy though with coexisting single-vessel [...] also discussed in depth likely benefit of THEATRICAL PERFORMER D given her persistently low ejection fraction and wide left bundle branch block however she adamantly declines. - increase carvedilol back to 6.25 b.i.d. - continue cardiac rehab Assessment & Plan (08/06/2022 4:53 PM GEOPOLITICS TEACHER): Primarily nonischemic cardiomyopathy though with coexisting single-vessel [...] tolerated. She would be a candidate for THEATRICAL PERFORMER D given her left bundle branch block [...] 6 weeks Coronary artery disease invo [place]ving [place] coronary artery of [place] heart without angina pectoris 06/03/2022 Assessment & Plan (07/05/2024 11:02 AM GEOPOLITICS TEACHER): Denying any complaints of angina. Continue beta-santana, aspirin, and Nexlizet Assessment & Plan (12/07/2023 2:47 PM CDT): History of mid LAD PCI and remains free of angina. - continue aspirin and Nexlizet, carvedilol Assessment & Plan (05/12/2023 1:12 PM CDT): History of mid LAD PCI and remains free of angina. - continue aspirin and Nexlizet, carvedilol Assessment & Plan (11/06/2022 10:18 PM GEOPOLITICS TEACHER): History of mid LAD PCI and remains free of angina. She reports history of diffuse myalgias and joint pain prompting discontinuation of multiple different statin agents and therefore is on Nexlizet which she seems to be tolerating. - continue aspirin and Nexlizet, carvedilol Assessment & Plan (08/06/2022 4:54 PM GEOPOLITICS TEACHER): History of mid LAD PCI and remains [...] Comments Blood Pressure 147/85 07/11/2024 1:08 PM GEOPOLITICS TEACHER Pulse 73 07/11/2024 1:08 PM GEOPOLITICS TEACHER Temperature 36.4 C (97.5 F) 07/11/2024 1:08 PM GEOPOLITICS TEACHER Respiratory Rate 16 07/11/2024 1:08 PM GEOPOLITICS TEACHER Oxygen Saturation 97% 07/11/2024 1:08 PM GEOPOLITICS TEACHER Inhaled Oxygen Concentration - - Weight 135.7 kg (299 lb 1.6 oz) 07/11/2024 1:08 PM GEOPOLITICS TEACHER Height 177.8 cm (5' 10 ) 07/05/2024 10: 13 AM GEOPOLITICS TEACHER Body Mass Index 42.92 07/05/2024 10:13 AM GEOPOLITICS TEACHER Plan of Treatment Not on file Insurance MEDICARE SOLUTIONS MEDICARE SOLUTIONS MEDICARE SOLUTIONS Care Teams Associate Engineer Relationship Specialty Start Date End Date Cresencio Weber MD PCP - General Family Medicine 11/05/22
--- OUTSIDE RECORDS SUMMARY | 2024-11-08 15:54 | XMS_ITS | Clinical Summary ---
Author Organization [facility] D Address [address] [place] [address] Care Team Providers Care Magazine Hand Name Role Phone Cresencio Weber MD Primary Care Provider + [phone] Allergies Active Allergy Reactions Criticality Noted Date [...] 11/06/2022 Assessment & Plan (07/05/2024 11:03 AM TALENT ACQUISITION RELATIONSHIP MANAGER): On Nexlizet, LDL above goal at 88. Discussed improving dietary habits, also can consider PCSK9 inhibitor or Leqvio Chronic systolic heart failure 06/03/2022 Assessment & Plan (07/05/2024 11:01 AM TALENT ACQUISITION RELATIONSHIP MANAGER): Unchanged EF, 38%. Unable to tolerate Entresto, [...] - continue carvedilol 6.25 b.i.d. - discussed GARDEN CONSULTANT but declines - continue cardiac rehab - will repeat echo at six-month follow-up to reassess ejection fraction; if it is stable or reduced from prior then will advocate to her again to retry spironolactone Assessment & Plan (11/06/2022 10:20 PM TALENT ACQUISITION RELATIONSHIP MANAGER): Primarily nonischemic cardiomyopathy though with coexisting single-vessel [...] also discussed in depth likely benefit of GARDEN CONSULTANT D given her persistently low ejection fraction and wide left bundle branch block however she adamantly declines. - increase carvedilol back to 6.25 b.i.d. - continue cardiac rehab Assessment & Plan (08/06/2022 4:53 PM TALENT ACQUISITION RELATIONSHIP MANAGER): Primarily nonischemic cardiomyopathy though with coexisting single-vessel [...] tolerated. She would be a candidate for GARDEN CONSULTANT D given her left bundle branch block [...] 6 weeks Coronary artery disease invo lving [place] coronary artery of [place] heart without angina pectoris 06/03/2022 Assessment & Plan (07/05/2024 11:02 AM TALENT ACQUISITION RELATIONSHIP MANAGER): Denying any complaints of angina. Continue beta-santana, aspirin, and Nexlizet Assessment & Plan (12/07/2023 2:47 PM CDT): History of mid LAD PCI and remains free of angina. - continue aspirin and Nexlizet, carvedilol Assessment & Plan (05/12/2023 1:12 PM CDT): History of mid LAD PCI and remains free of angina. - continue aspirin and Nexlizet, carvedilol Assessment & Plan (11/06/2022 10:18 PM TALENT ACQUISITION RELATIONSHIP MANAGER): History of mid LAD PCI and remains free of angina. She reports history of diffuse myalgias and joint pain prompting discontinuation of multiple different statin agents and therefore is on Nexlizet which she seems to be tolerating. - continue aspirin and Nexlizet, carvedilol Assessment & Plan (08/06/2022 4:54 PM TALENT ACQUISITION RELATIONSHIP MANAGER): History of mid LAD PCI and remains [...] Type Department Care Team Description 11/07/2024 Telephone [facility] Cardiology [address] [place] [address] Karthikeyan Cotton MD from Last 3 Months Surgical History Surgery Date Site/Laterality Comments TONSILLECTOMY APPENDECTOMY CHOLECYSTECTOMY HYSTERECTOMY Medical History Medical History Date Comments Asthma KATIE (obstructive sleep apnea) Hypercholesteremia Hypertension Heart failure (HCC) Uterine cancer (HCC) Basal cell carcinoma Family History Medical [...] Comments Blood Pressure 147/85 07/11/2024 1:08 PM TALENT ACQUISITION RELATIONSHIP MANAGER Pulse 73 07/11/2024 1:08 PM TALENT ACQUISITION RELATIONSHIP MANAGER Temperature 36.4 C (97.5 F) 07/11/2024 1:08 PM TALENT ACQUISITION RELATIONSHIP MANAGER Respiratory Rate 16 07/11/2024 1:08 PM TALENT ACQUISITION RELATIONSHIP MANAGER Oxygen Saturation 97% 07/11/2024 1:08 PM TALENT ACQUISITION RELATIONSHIP MANAGER Inhaled Oxygen Concentration - - Weight 135.7 kg (299 lb 1.6 oz) 07/11/2024 1:08 PM TALENT ACQUISITION RELATIONSHIP MANAGER Height 177.8 cm (5' 10 ) 07/05/2024 10: 13 AM TALENT ACQUISITION RELATIONSHIP MANAGER Body Mass Index 42.92 07/05/2024 10:13 AM TALENT ACQUISITION RELATIONSHIP MANAGER Plan of Treatment Health Maintenance Due Date Last Done Comments Breast Cancer Screening-Mammogram 1954 Colon Cancer Screening-Colonoscopy 1954 Depression Screening 1954 Fall Risk Assessment 1954 Hepatitis C Screening 1954 Osteoporosis Screening-Bone Density Scan 1954 DTaP/Tdap/Td Vaccine (1 - Tdap) 1965 Hepatitis B Screening 02/06/1972 Pneumococcal vaccine 65+ (1 of 2 - PCV) 1973 Zoster Vaccine (1 of 2) 02/06/2004 Well Visit 65+ 2019 Influenza Vaccine (#1) 2024 Insurance MEDICARE SOLUTIONS [facility] MEDICARE Address: [address] [place] [address] MEDICARE SOL[employer]IONS [facility] MEDICARE Address: [place] [id number] [place] [id number] [facility] MED[facility] Address: [address] [address] [place] [address] Care Teams Magazine Hand Relationship Specialty Start Date End Date Cresencio Weber MD PCP - General Family Medicine 11/05/22
--- OUTSIDE RECORDS SUMMARY | 2024-11-08 15:54 | XMS_ITS | Encounter Summary ---
Author Organization [facility] Healthcare Address [address] [place] [address] Care Team Providers Care Band Head Saw Operator Name Role Phone Cresencio Weber MD Primary Care Provider [phone] Encounter Details Date Type Department Care Team (Late st Contact Info) Description 11/07/2024 Telephone [facility] Cardiology [address] [facility] [facility] [address] [place] [address] Karthikeyan Cotton MD [address] [facility] [address] [place] [address] Social History Tobacco Use Types Packs/Day Years Used Date Smoking Tobacco: Never Smokeless Tobacco: Never Comments No Sex and Gender Information Value Date Recorded Sex Assigned at Not on file Legal Sex Female 11:35 AM CDT Gender Identity Not on file Sexual Orientation Not on file documented as of this encounter Miscellaneous Notes * Telephone Encounter - Ginette Sanchez - 11/07/2024 4:39 PM CDT Patient is calling stated that she is having issues she wants to make sure they aren't heart related Called patient phone rang 1X and was busy called patient again was saying hello and didn't hear anyresponse then line d/c documented in this encounter Plan of Treatment Not on file documented as of this encounter Visit Diagnoses Not on filedocumented in this encounter Care Teams Band Head Saw Operator Relationship Specialty Start Date End Date Cresencio Weber MD PCP - General Family Medicine 11/05/22 documented as of this encounter
--- OUTSIDE RECORDS SUMMARY | 2024-11-08 15:54 | XMS_ITS | Patient Health Record ---
Author Organization [facility] Medical Address [address] [id number] Care Team Providers Care Seam Feller Name Role Phone MIKKI ROUSE Primary Care Provider Allergies Allergen (clinical drug ingredient) Drug/Non Drug Allergy documented on EMR Reaction Allergy Type Onset Date Status Substance with sulfonamide structure and antibacterial mechanism of action (substance) Sulfa Drugs (uncoded) rash Allergy Active nebivolol Bystolic cough Drug Allergy Active Erythrocin rash Drug Allergy Active Keflex rash Drug Allergy Active Lisinopril cough Drug Allergy Active nystatin Nystatin nausea and vomiting Drug Allergy Active codeine Codeine Unknown Drug Allergy Active Latex Latex itching Allergy Active losartan Losartan shortness of breath Drug Allergy Active Penicillin rash Drug Allergy Active Reason For Referral No Information Medications Medication SIG (Take, Route, Frequency, Duration) Notes Start Date End Date Status Doxycycline Monohydrate 100 MG 1 tablet Orally Twice a day for 7 days Active Levalbuterol Tartrate 45 MCG/ACT 2 puff as needed Inhalation every 4-6 hrs for 30 days unable to tolerate albuterol due to s/e, has prior Rx of levalbuterol which she has done well with thank you 02/04/2022 Active Nexlizet 180-10 MG 1 tablet Orally Once a day Active Vitamin D 50 MCG (2000 UT) 1 capsule Orally Once a day Active Carvedilol 12.5 MG 1 tablet with food Orally Twice a day Active Baby Aspirin Active methylPREDNISolone 4 MG as directed Orally for 6 days Active Social History Tobacco Use: Social History Observation Description Date Details (start date - stop date) Never Smoker NA - NA Sex Assigned At : Social History Observation Description Sex Assigned At Female Tobacco Use/Smoking Question Answer Notes Are you a: never smoker Sexual History Question Answer Notes Had sex in the past 12 months (vaginal, oral, or anal)? No Have you ever had a Sexually transmitted disease ? No Last menstrual period Hysterectomy SBIRT (2018 Edition) Question Answer Notes Patient refused/declined SBIRT screening at this time? No 1. How often do you have a drink containing alco hol? Never 3. How often do you have five or more drinks on one occasion? Never SCORE 0 Interpretation Negative How many times in the past y ear have you used an illegal drug or used a prescription medication for non-medical reasons? 0 Total Count 0 Interpretation Negative Plan Of Treatment No Information Insurance Providers Payer Name Payer Address Payer Phone Subscriber Number Group Number Insured Name Patient Relationship to Insured Coverage Start Date Coverage End Date [employer] MEDI ADV BLUE O PPO D-[place] [address] [address] [place] [phone] [id number] KERRY OLMOS Self - patient is the insured 2 Medical (General) History Medical History History ICD Code Problems: Sinus Problems: Active Bronchitis HTN Arthritis Asthma Uterine cancer Heart disease Sleep apnea Surgical History Surgery Date(Month/Year) Gallbladder 2018 Tonsils 1961 Hysterectomy estab Hospitalization History Reason Date(Month/Year)
--- OUTSIDE RECORDS SUMMARY | 2024-11-08 17:02 | XMS_ITS | Clinical Summary ---
Author Organization [facility] D Address [address] [place] [address] Care Team Providers Care Event Sales Manager Name Role Phone Cresencio Weber MD Primary Care Provider + [phone] Allergies Active Allergy Reactions Criticality Noted Date [...] 11/06/2022 Assessment & Plan (07/05/2024 11:03 AM BEACH PATROL LIEUTENANT): On Nexlizet, LDL above goal at 88. Discussed improving dietary habits, also can consider PCSK9 inhibitor or Leqvio Chronic systolic heart failure 06/03/2022 Assessment & Plan (07/05/2024 11:01 AM BEACH PATROL LIEUTENANT): Unchanged EF, 38%. Unable to tolerate Entresto, [...] - continue carvedilol 6.25 b.i.d. - discussed LAW OFFICE ASSISTANT but declines - continue cardiac rehab - will repeat echo at six-month follow-up to reassess ejection fraction; if it is stable or reduced from prior then will advocate to her again to retry spironolactone Assessment & Plan (11/06/2022 10:20 PM BEACH PATROL LIEUTENANT): Primarily nonischemic cardiomyopathy though with coexisting single-vessel [...] also discussed in depth likely benefit of LAW OFFICE ASSISTANT D given her persistently low ejection fraction and wide left bundle branch block however she adamantly declines. - increase carvedilol back to 6.25 b.i.d. - continue cardiac rehab Assessment & Plan (08/06/2022 4:53 PM BEACH PATROL LIEUTENANT): Primarily nonischemic cardiomyopathy though with coexisting single-vessel [...] tolerated. She would be a candidate for LAW OFFICE ASSISTANT D given her left bundle branch block [...] 6 weeks Coronary artery disease invo lving [place] coronary artery of [place] heart without angina pectoris 06/03/2022 Assessment & Plan (07/05/2024 11:02 AM BEACH PATROL LIEUTENANT): Denying any complaints of angina. Continue beta-santana, aspirin, and Nexlizet Assessment & Plan (12/07/2023 2:47 PM CDT): History of mid LAD PCI and remains free of angina. - continue aspirin and Nexlizet, carvedilol Assessment & Plan (05/12/2023 1:12 PM CDT): History of mid LAD PCI and remains free of angina. - continue aspirin and Nexlizet, carvedilol Assessment & Plan (11/06/2022 10:18 PM BEACH PATROL LIEUTENANT): History of mid LAD PCI and remains free of angina. She reports history of diffuse myalgias and joint pain prompting discontinuation of multiple different statin agents and therefore is on Nexlizet which she seems to be tolerating. - continue aspirin and Nexlizet, carvedilol Assessment & Plan (08/06/2022 4:54 PM BEACH PATROL LIEUTENANT): History of mid LAD PCI and remains [...] Type Department Care Team Description 11/07/[address] [facility] Cardiology [address] [facility] [address] [place] [address] Karthikeyan Cotton MD from Last [...] Comments Blood Pressure 147/85 07/11/2024 1:08 PM BEACH PATROL LIEUTENANT Pulse 73 07/11/2024 1:08 PM BEACH PATROL LIEUTENANT Temperature 36.4 C (97.5 F) 07/11/2024 1:08 PM BEACH PATROL LIEUTENANT Respiratory Rate 16 07/11/2024 1:08 PM BEACH PATROL LIEUTENANT Oxygen Saturation 97% 07/11/2024 1:08 PM BEACH PATROL LIEUTENANT Inhaled Oxygen Concentration - - Weight 135.7 kg (299 lb 1.6 oz) 07/11/2024 1:08 PM BEACH PATROL LIEUTENANT Height 177.8 cm (5' 10 ) 07/05/2024 10: 13 AM BEACH PATROL LIEUTENANT Body Mass Index 42.92 07/05/2024 10:13 AM BEACH PATROL LIEUTENANT Plan of Treatment Health Maintenance Due Date [...] Influenza Vaccine (#1) 2024 Insurance MEDICARE SOLUTIONS MEDICARE [employer] [id number] Care Teams Event Sales Manager Relationship Specialty Start Date End Date Cresencio Weber MD PCP - General Family Medicine 11/05/22
--- OUTSIDE RECORDS SUMMARY | 2024-11-08 17:02 | XMS_ITS | Referral Summary ---
Author Organization [facility] D Address [address] [place] [address] Care Team Providers Care Orthopedic Brace Maker Name Role Phone Cresencio Weber MD Primary Care Provider [phone] Encounters Date Type Department Care Team Description 11/07/2024 Telephone [facility] Cardiology [address] [facility] [address] [place] [address] Karthikeyan Cotton MD from Last [...] 11/06/2022 Assessment & Plan (07/05/2024 11:03 AM MANAGEMENT INSTRUCTOR): On Nexlizet, LDL above goal at 88. Discussed improving dietary habits, also can consider PCSK9 inhibitor or Leqvio Chronic systolic heart failure 06/03/2022 Assessment & Plan (07/05/2024 11:01 AM MANAGEMENT INSTRUCTOR): Unchanged EF, 38%. Unable to tolerate Entresto, [...] - continue carvedilol 6.25 b.i.d. - discussed HORTICULTURAL SERVICES SUPERVISOR but declines - continue cardiac rehab - will repeat echo at six-month follow-up to reassess ejection fraction; if it is stable or reduced from prior then will advocate to her again to retry spironolactone Assessment & Plan (11/06/2022 10:20 PM MANAGEMENT INSTRUCTOR): Primarily nonischemic cardiomyopathy though with coexisting single-vessel [...] also discussed in depth likely benefit of HORTICULTURAL SERVICES SUPERVISOR D given her persistently low ejection fraction and wide left bundle branch block however she adamantly declines. - increase carvedilol back to 6.25 b.i.d. - continue cardiac rehab Assessment & Plan (08/06/2022 4:53 PM MANAGEMENT INSTRUCTOR): Primarily nonischemic cardiomyopathy though with coexisting single-vessel [...] tolerated. She would be a candidate for HORTICULTURAL SERVICES SUPERVISOR D given her left bundle branch block [...] 6 weeks Coronary artery disease invo lving [place] coronary artery of [place] heart without angina pectoris 06/03/2022 Assessment & Plan (07/05/2024 11:02 AM MANAGEMENT INSTRUCTOR): Denying any complaints of angina. Continue beta-santana, aspirin, and Nexlizet Assessment & Plan (12/07/2023 2:47 PM CDT): History of mid LAD PCI and remains free of angina. - continue aspirin and Nexlizet, carvedilol Assessment & Plan (05/12/2023 1:12 PM CDT): History of mid LAD PCI and remains free of angina. - continue aspirin and Nexlizet, carvedilol Assessment & Plan (11/06/2022 10:18 PM MANAGEMENT INSTRUCTOR): History of mid LAD PCI and remains free of angina. She reports history of diffuse myalgias and joint pain prompting discontinuation of multiple different statin agents and therefore is on Nexlizet which she seems to be tolerating. - continue aspirin and Nexlizet, carvedilol Assessment & Plan (08/06/2022 4:54 PM MANAGEMENT INSTRUCTOR): History of mid LAD PCI and remains [...] Comments Blood Pressure 147/85 07/11/2024 1:08 PM MANAGEMENT INSTRUCTOR Pulse 73 07/11/2024 1:08 PM MANAGEMENT INSTRUCTOR Temperature 36.4 C (97.5 F) 07/11/2024 1:08 PM MANAGEMENT INSTRUCTOR Respiratory Rate 16 07/11/2024 1:08 PM MANAGEMENT INSTRUCTOR Oxygen Saturation 97% 07/11/2024 1:08 PM MANAGEMENT INSTRUCTOR Inhaled Oxygen Concentration - - Weight 135.7 kg (299 lb 1.6 oz) 07/11/2024 1:08 PM MANAGEMENT INSTRUCTOR Height 177.8 cm (5' 10 ) 07/05/2024 10: 13 AM MANAGEMENT INSTRUCTOR Body Mass Index 42.92 07/05/2024 10:13 AM MANAGEMENT INSTRUCTOR Plan of Treatment Not on file Insurance [place] [address] MEDICARE SOLUTIONS MED[employer]IONS Care Teams Orthopedic Brace Maker Relationship Specialty Start Date End Date Cresencio Weber MD PCP - General Family Medicine 11/05/22
--- OUTSIDE RECORDS SUMMARY | 2024-11-08 17:02 | XMS_ITS | Encounter Summary ---
Author Organization [facility] Healthcare Address [address] [place] [address] Care Team Providers Care Physicist Light And Optics Name Role Phone Cresencio Weber MD Primary Care Provider [phone] Encounter Details Date Type Department Care Team (Late st Contact Info) Description 11/07/2024 Telephone [facility] Cardiology [address] [place] [address] Karthikeyan Cotton MD [address] [facility] [address] [place] [address] Social History Tobacco Use Types [...] on filedocumented in this encounter Care Teams Physicist Light And Optics Relationship Specialty Start Date End Date Cresencio Weber MD PCP - General Family Medicine 11/05/22 documented as of this encounter
[2024-11-08] MEDS: SACCHAROMYCES BOULARDII 250 MG CAPSULE PO (17:28)
--- NOTE | 2024-11-08 17:30 | ADMGEN ---
This patient, Beverly Lucero, was admitted to 2nd Floor Room 204-1. Patient/family oriented to hospital policies and general routines including ID bracelet, bed and alarms, visiting hours, pain management, procedures, bathroom and other care routines, personal items, smoking policy, room service/diet, and visiting hours. Patient has on necklace, has toiletries, two phone charging chords and meds in room closet, offered to put meds in locked med room, pt refuses at this time, pt educated on need to use hospital medications while here and not to take her home inhalers Information on how to activate the Rapid Response Team has been discussed. Patient/Family are encouraged to report perceived risks to care and to ask questions if they do not understand what they are told or what they should do.
[2024-11-08] MEDS: DOCUSATE SODIUM 100 MG CAPSULE PO (17:35)
[2024-11-08] MEDS: SODIUM CHLORIDE 0.9% IV 1,000 ML 75 ML IV CONT (18:02)
[2024-11-08] MEDS: AZITHROMYCIN 500 MG/NS 250 ML 500 MG/250 ML BAG 250 MG IVPB (18:02)
[2024-11-08] MEDS: IPRATROPIUM 0.5 MG/ALBUTEROL SULFATE 2.5 MG AMPUL.NEB 3 ML INHALATION ×2 (19:16→23:43)
[2024-11-08] MEDS: carvediloL 3.125 MG TABLET 6.25 MG PO (20:15)
[2024-11-08] MEDS: methylPREDNISolone SOD SUCC 125 MG VIAL 62.5 MG IV PUSH (21:00)
[2024-11-08] MEDS: ACETAMINOPHEN 325 MG TABLET 650 MG PO (22:13)
[2024-11-08 22:54] LABS: Add Urine Microscopic? NO; Appearance Urine Clear (Clear); Bilirubin Urine Negative (Negative); Blood Urine Negative (Negative); Color Urine Light Yellow (Yellow); Glucose Urine UA Negative (Negative); Ketones Urine Negative (Negative); Leukocyte Esterase Ur Negative (Negative); Nitrate Urine Negative (Negative); Protein Urine Negative (Negative); Urobilinogen Urine 0.2 mg/dL (0.2-1.0); pH Urine 6.5 (5.0-8.0)
[2024-11-09] VITALS (7 sets, daily range): BP systolic 116–165; BP diastolic 75–89; PULSE 70–92; RESP 14–20; TEMP 36.5–37.1; O2SAT 93–98
[2024-11-09] MEDS: IPRATROPIUM 0.5 MG/ALBUTEROL SULFATE 2.5 MG AMPUL.NEB 3 ML INHALATION ×2 (05:28→11:41)
[2024-11-09] MEDS: methylPREDNISolone SOD SUCC 125 MG VIAL 62.5 MG IV PUSH (05:29)
[2024-11-09] MEDS: SODIUM CHLORIDE 0.9% IV 1,000 ML 75 ML IV CONT (05:29)
[2024-11-09] MEDS: CHOLECALCIFEROL 1,000 UNITS TABLET 2000 UNITS PO (09:44)
[2024-11-09] MEDS: SACCHAROMYCES BOULARDII 250 MG CAPSULE PO (09:44)
[2024-11-09] MEDS: ASPIRIN 81 MG CHEWABLE TABLET PO (09:45)
[2024-11-09] MEDS: carvediloL 3.125 MG TABLET 6.25 MG PO (09:46)
--- NOTE | 2024-11-09 11:17 | P.SS_ITS ---
Same Day Admit/Disch: HPI History of Present Illness Chief complaint: ACUTE HYPOXIC RESP FAILURE ASTHMA EXCERBATION Narrative: Beverly Lucero is a 69 year old female presented to the emergency department with complaints shortness a breath and productive cough after she was seen by her ENT. patient report she has had off and on again symptoms since January with intermittent episodes of improvement. patient reports she was seen by her wind farm electrical systems designer who recommended and refer to ENT. patient has a past medical history of asthma, bronchitis, KATIE depression cardiomyopathy, Gerd, previous uterine cancer, HLD, and HTN. Patient reports she has been attempting to use her inhalers as needed and was using her nebulizer once dailyWith continued sputum production and severe cough. CXR showed no acute cardiopulmonary process and labs were unremarkable, ABGs did show some mild hypoxia at 84.9 oxygen saturation at 95% after being placed on 2 L nasal cannula but was then weaned in the emergency department to room air. patient was admitted to the medical unit for observation of acute respiratory failure with hypoxia secondary to possible URI versus asthma exacerbation. [facility] Past Medical History Medical History Asthma exacerbation, mild Asthma exacerbation Bronchitis Right ankle pain Right foot pain ITB syndrome Chronic pain Depression KATIE (obstructive sleep apnea) Cardiomyopathy Internal derangement of right knee GERD (gastroesophageal reflux disease) Uterine cancer Hyperlipidemia Hypertension Surgical History Surgical History History of heart artery stent [address] Vazquez/SHELIA Larios History of cholecystectomy 2013 History of tonsillectomy 1961 History of appendectomy 1961 History of total abdominal hysterectomy Family History Family History Father AA (aortic aneurysm) Mother Acute myocardial infarction Sibling COPD (chronic obstructive pulmonary disease) Hypertension Thyroid activity decreased Other Aneurysm Arthritis Asthma Brain tumor Carcinoma of colon Diabetes mellitus Heart disease Hyperlipidemia Neuropathy Skin cancer Social History Social History Smoking status: Never smoker Second hand tobacco smoke exposure: Yes Alcohol intake: never Substance use: never Substance use type: does not use Do You Feel Safe in your Home?: Yes Lack of Transportation: No Lack of Food: Never True Current Housing: I Have Housing Concerned About Future Housing: No Difficulty Paying Gas/Electric Bills: No Difficulty Paying for Meds: No Currently Unemployed: No Education: High School Diploma/GED Difficulty w/ Childcare or Family Care: No Living arrangements: alone Occupation/Education: retired Additional occupation/education comments: [employer] Gender identity (if verbalized by the patient): Female Spiritual care concerns: No Same Day Admit/Disch: Med Pre-admit Medications Home Medications ?Medication ?Instructions ?Recorded ?Confirmed ?Type bempedoic acid 180 mg-ezetimibe 10 1 tablet PO DAILY 04/22/22 11/08/24 History mg tablet (Nexlizet) cholecalciferol (vitamin D3) 50 50 mcg PO DAILY 06/09/22 11/08/24 History mcg (2,000 unit) capsule aspirin 81 mg chewable tablet 81 mg PO DAILY 06/16/22 11/08/24 History carvedilol 3.125 mg tablet 6.25 mg PO Q12H 05/15/23 11/08/24 History albuterol sulfate 90 mcg/actuation 1 - 2 puff inhalation Q4-6H PRN 09/27/24 11/08/24 Rx aerosol inhaler shortness of breath or wheezing #8.5 grams fluticasone propionate 50 1 spray intranasal DAILY #18.2 mL 10/04/24 11/08/24 Rx mcg/actuation nasal spray,suspension (Flonase Allergy Relief) albuterol sulfate 2.5 mg/0.5 mL 2.5 mg (0.5 mL) inhalation Q20M 10/12/24 11/08/24 Rx solution for nebulization PRN shortness of breath or wheezing #30 ea albuterol sulfate 0.63 mg/3 mL 0.63 mg (3 mL) inhalation Q4-6H 10/13/24 11/08/24 Rx solution for nebulization PRN shortness of breath or wheezing #75 mL levalbuterol tartrate 45 2 inh inhalation Q6H #15 grams 10/19/24 11/08/24 Rx mcg/actuation aerosol inhaler (Xopenex HFA) budesonide 160 mcg-glycopyr 9 2 inh inhalation BID #32.1 grams 11/04/24 11/08/24 Rx mcg-formot 4.8 mcg/actuation HFA inhaler (NearbyNowzAccelalox) doxycycline hyclate 100 mg capsule 100 mg PO BID #10 caps 11/09/24 Rx prednisone 10 mg tablets in a dose See Taper PO DAILY 12 days #42 tabs 11/09/24 Rx pack Review of Systems Review of Systems All systems reviewed & are unremarkable except as noted in HPI and below Exam Narrative: * GENERAL: Alert and oriented x 3. No acute distress. * EYES: PERRLA. * HEENT: Moist mucous membranes. * LUNGS: Wheezing throughout bilaterally. Tachypnea, No accessory muscle use. productive cough * CARDIOVASCULAR: Regular rate and rhythm. No murmur. No JVD. S1-S2 * ABDOMEN: Soft, non tenderness and non-distended. No palpable masses. * EXTREMITIES: No edema. Non-tender * SKIN: No rashes or lesions. Skin warm, dry. * NEUROLOGIC: No focal neurological deficits. * PSYCHIATRIC: Appropriate mood and affect. Good judgement and insight. DS: Data Data Completed and Pending Labs on day of discharge: Labs from last 24 hours 11/08/24 11/08/24 11/08/24 22:33 14:41 14:30 WBC 7.3 RBC 4.68 Hgb 13.5 Hct 42.5 H MCV 90.8 MCH 28.8 MCHC 31.8 L RDW 13.0 Plt Count 340 MPV 8.8 L Immature Gran % (Auto) 0.3 H Neut % (Auto) 61.9 Lymph % (Auto) 19.7 [place] % (Auto) 8.5 Eos % (Auto) 8.4 H Baso % (Auto) 1.2 H Lymph # (Auto) 1.43 [place] # (Auto) 0.62 Eos # (Auto) 0.61 H Baso # (Auto) 0.09 Abs Immat Gran (auto) 0.02 H Absolute Neuts (auto) 4.49 Absolute Nucleated RBC 0.00 Nucleated RBC % 0.0 PT 10.5 INR 0.9 APTT 27.7 Puncture Site Right radial ABG pH 7.43 ABG pCO2 36.6 ABG pO2 47.0 L ABG HCO3 23.9 ABG O2 Saturation 84.6 L ABG Base Excess 0.0 Oxyhemoglobin 84.1 L O2 Delivery Device Room air O2 Liters/Min 0.0 Sodium 140 Potassium 3.9 Chloride 104 Carbon Dioxide 29 Anion Gap 7 BUN 22 H Creatinine 1.27 H Estim Creat Clear Calc 56 Estimated GFR 42 L Glucose 107 H Calculated Osmolality 293 Calcium 9.2 Magnesium 2.2 Total Bilirubin 0.4 AST 18 ALT 28 Alkaline Phosphatase 85 Troponin I 11.3 NT-Pro-B Natriuret Pep 619 H Total Protein 7.3 Albumin 3.9 Urine Color Light yellow Urine Appearance Clear Urine pH 6.5 Ur Specific [place] 1.010 Urine Protein Negative Urine Glucose (UA) Negative Urine Ketones Negative Ur Blood (Man) Negative Urine Nitrate Negative Urine Bilirubin Negative Urine Urobilinogen 0.2 Ur Leukocyte Esterase Negative Influenza A (RT-PCR) Negative Influenza B (RT-PCR) Negative RSV (RT-PCR) Negative SARS-CoV-2 RNA (RT-PCR) Negative Imaging Radiologist's impression: EXAMINATION: XR chest 1V portable DATE: 11/08/2024 14:52 INDICATION: Shortness of breath. Cough. TECHNIQUE: A single frontal view of the chest was obtained. COMPARISON: Chest 2 views 09/02/2024, chest CT 09/21/2024 FINDINGS: There is no pneumonia, pleural effusion, or pneumothorax. The heart size is normal. IMPRESSION: 1. No acute cardiopulmonary disease. DS: Summary Hospital Course Reason for hospitalization: ACUTE HYPOXIC RESP FAILURE ASTHMA [facility] Course: Beverly Lucero is a 69 year old female presented to the emergency department with complaints shortness a breath and productive cough after she was seen by her ENT. patient report she has had off and on again symptoms since January with intermittent episodes of improvement. patient reports she was seen by her wind farm electrical systems designer who recommended and refer to ENT. patient has a past medical history of asthma, bronchitis, KATIE depression cardiomyopathy, Gerd, previous uterine cancer, HLD, and HTN. Patient reports she has been attempting to use her inhalers as needed and was using her nebulizer once dailyWith continued sputum production and severe cough. CXR showed no acute cardiopulmonary process and labs were unremarkable, ABGs did show some mild hypoxia at 84.9 oxygen saturation at 95% after being placed on 2 L nasal cannula but was then weaned in the emergency department to room air. patient was admitted to the medical unit for observation of acute respiratory failure with hypoxia secondary to possible URI versus asthma exacerbation patient was initially started on azithromycin And Rocephin in the emergency department with IV methylprednisone she continued to improve and was weaned to room air oxygen at 98%. wbc's remained in range patient still with productive cough but denied chest pain, nausea, vomiting, fever, chills or dizziness. patient had been seen and assessed on day of discharge on room air still with some productive cough but shortness of breath improving patient was transitioned to oral doxycycline for any possible underlying bacterial component encourage patient on supportive care at home as well as provided taper dose steroids. patient was instructed to use her nebulizer 3 times per day until improvement in december use rescue inhaler as needed. Patient instructed to follow-up with her wind farm electrical systems designer, primary care, and ENT after discharge. Patient acknowledged and agreed discharge plan patient discharged home. Status at Discharge Functional status at discharge: independent ambulation Overall status at discharge: patient is progressing back to baseline Time Spent with Patient Time attestation: Total time spent providing and/or coordinating discharge services: Time spent: Greater than 30 minutes DS: Admitting Diagnosis Discharge Date 11/09/2024 Admitting Diagnosis ACUTE HYPOXIC RESP FAILURE ASTHMA EXCERBATION DS: Discharge Diagnosis Discharge Diagnosis (1) Asthma exacerbation, mild: Code(s): J45.901 - Unspecified asthma with (acute) exacerbation Status: Acute (2) Bronchitis: Code(s): J40 - Bronchitis, not specified as acute or chronic Status: Acute (3) Acute and chronic respiratory failure with hypoxia: Code(s): J96.21 - Acute and chronic respiratory failure with hypoxia Status: Acute (4) Cough: Qualifiers: Cough type: acute Qualified Code(s): R05.1 - Acute cough Code(s): R05.9 - Cough, unspecified Status: Acute (5) Chest congestion: Code(s): R09.89 - Other specified symptoms and signs involving the circulatory and respiratory systems Status: Acute Plan Disposition Discharge Plan Discharge Attending physician on discharge: Ham Russell Consulting providers: Alexandra Benites Discharging Clinician: Alexandra Benites Anticipated Discharge Date/Time: 11/09/24 11:05 Patient Disposition: Home, Self-Care Activity: may shower and as tolerated Diet: as tolerated and low sodium Discharge Instructions: URI/bacterial sinusitis/asthma Exacerbation * I have prescribed a 5 day course of antibiotic therapy and steroids please take as indicated * continue with supportive care may use acetaminophen for minor fevers pains and aches * continue to use your nebulizer 3 times daily until improvement * may use inhalers as needed * may continue to use [id number] guaifenesin How can you care for yourself at home? ? Keep track of any new symptoms or changes in your symptoms. ? Rest until you feel better. ? Be safe with medicines. Take your medicines exactly as prescribed. Call your doctor if you think you are having a problem with your medicine. ? Do not drive after taking a prescription pain medicine. ? Ensure to follow-up with primary care physician as indicated and provide updated medication list provided to you at discharge. When should you call for help? Call 911 anytime you think you may need emergency care. For example, call if: ? You passed out (lost consciousness). Call your doctor now or seek immediate medical care if: ? You have new symptoms like fever, difficulty breathing, Chest pain, vomiting, or rash. ? You have new or different pain. ? You are confused and are having trouble thinking clearly. ? Your symptoms are getting worse. Watch closely for changes in your health, and be sure to contact your doctor if: ? You do not get better as expected. Patient Instructions: Antibiotic Form, Asthma (DC), Sinusitis (GEN), Upper Respiratory Infection (DC), Rhinosinusitis (DC), How to Use a Nebulizer (DC) Patient Language: Sudanese Stand Alone Forms: General Discharge Information Follow-up/Referrals: Cresencio Weber MD [Primary Care Provider] - 2 weeks Discharge Medications: New doxycycline hyclate 100 mg capsule 100 mg PO BID Qty: 10 0RF prednisone 10 mg tablets,dose pack See Taper PO DAILY 12 Days Qty: 42 0RF Taper: Prednisone Taper from 60 mg;12 days 60 mg DAILY for 2 Days and 0 Hour 50 mg DAILY for 2 Days and 0 Hour 40 mg DAILY for 2 Days and 0 Hour 30 mg DAILY for 2 Days and 0 Hour 20 mg DAILY for 2 Days and 0 Hour 10 mg DAILY for 2 Days and 0 Hour Continued carvedilol 3.125 mg tablet 6.25 mg PO Q12H Rx Instructions: must administer with a meal/food Nexlizet 180-10 mg Tablet 1 tablet PO DAILY cholecalciferol (vitamin D3) 50 mcg (2,000 unit) capsule 50 mcg PO DAILY aspirin 81 mg tablet,chewable 81 mg PO DAILY albuterol sulfate 90 mcg/actuation HFA aerosol inhaler 1 - 2 puff inhalation Q4-6H PRN (Reason: shortness of breath or wheezing) Qty: 8.5 2RF fluticasone propionate [Flonase Allergy Relief] 50 mcg/actuation spray,suspension 1 spray intranasal DAILY Qty: 18.2 0RF Rx Instructions: administer into each nostril albuterol sulfate 2.5 mg/0.5 mL solution for nebulization 2.5 mg inhalation Q20M PRN (Reason: shortness of breath or wheezing) Qty: 30 2RF Rx Instructions: for up to 3 doses, then ok to give 2.5-10mg NEB q1-4 hours as needed. albuterol sulfate 0.63 mg/3 mL solution for nebulization 0.63 mg inhalation Q4-6H PRN (Reason: shortness of breath or wheezing) Qty: 75 0RF levalbuterol tartrate [Xopenex HFA] 45 mcg/actuation HFA aerosol inhaler 2 inh inhalation Q6H Qty: 15 3RF Breztri Aerosphere 160-9-4.8 mcg/actuation HFA aerosol inhaler 2 inh inhalation BID Qty: 32.1 3RF Rx Instructions: Rinse mouth and spit after each use. Use with spacer. Date of admission: 11/08/24 16:10 Primary Care Provider: Cresencio Weber Admitting Provider: Ham Russell Attending physician on admission: Ham Russell Condition: Stable Quality -Patient's previous records reviewed on admission -ER notes reviewed in detail on admission -discussed all findings and current treatment plan with patient/Family/POA -Consultations reviewed for recommendations -Patient's disposition for safe discharge discussed with high risk case manager Dictation performed by [employer]aryView direct speech recognition software, therefore folding machine tender variants and typographical errors may occur. Hospitalist [facility] Advance Care Plan I have confirmed that the patient's Advanced Care Plan is present, code status is documented, or surrogate decision maker is listed in patient medical record.: Yes Medication Reconciliation I have utilized all available resources to obtain, update and review the patients current medications (includes all prescriptions, OTC, herbals, cannabis, and nutritional supplements).: Yes The patient is not eligible for med reconciliation; the patient is in a emergent medical situation where delaying treatment would jeopardize the patients health.: No Heart Failure (Exclusion) Patient has history of Heart Transplant or Left Ventricular Assistive Device?: No IF YES, STOP HERE Heart Failure (Qualifier) Patient has current or prior documentation of LVEF less than or equal to 40%, or mod/servere depressed LVSF?: No IF NO, STOP HERE
--- NOTE | 2024-11-09 13:43 | PC.NURSE ---
Pt discharged to home. VSS. Discharge instructions given to pt. Medications reviewed with pt. Pt verbalized understanding of instructions. Pt taken to lobby by PEGGY.
--- NOTE | 2024-11-10 11:14 | PC.NURSE ---
discharge call back completed, all questions regarding imaging and blood testing answered, advised to see PMD if feels is not improving, or return to ED for work up as needed.
== END 2024-11-09 12:50 | disposition home or self-care (01) ==
LOC: CHSED 16:10 → CHS2ND 16:17
PROVIDERS: Nurse Practitioner Family; Admitting Provider Internal Medicine; Emergency Provider Emergency Medicine; PCP Family Medicine; Visit Provider Internal Medicine
DX: J96.21 Acute and chronic respiratory failure with hypoxia (principal); J45.901 Unspecified asthma with (acute) exacerbation; R05.1 Acute cough; R09.89 Other specified symptoms and signs involving the circulatory and respiratory systems; I10 Essential (primary) hypertension; I42.9 Cardiomyopathy, unspecified; E78.5 Hyperlipidemia, unspecified; G47.33 Obstructive sleep apnea (adult) (pediatric); K21.9 Gastro-esophageal reflux disease without esophagitis; F32.A Depression, unspecified; Z20.822 Contact with and (suspected) exposure to COVID-19; Z85.42 Personal history of malignant neoplasm of other parts of uterus; Z95.5 Presence of coronary angioplasty implant and graft; Z79.82 Long term (current) use of aspirin; Z79.899 Other long term (current) drug therapy
CPT/HCPCS: 36415; 36600; 71045; 80053; 81003; 82805; 83735; 83880; 84484; 85025; 85610; 85730; 87637; 94640; 96361; 96365; 96367; 96374; 96375; 96376; 99285; A9270; G0378; J0456; J0696; J2919; J7030

== ENCOUNTER 2024-11-09 12:39 | Outpatient (CLI) | payer MEDICARE, SELFPAY ==
--- NOTE | ~2024-11-09 | CT_ITS ---
CT sinus wo con Ordering provider: Gena Mauro History: . CHRONIC PANSINUSITIS . Comparison: None. Technique: Thin slice Scans CT of the paranasal sinuses was performed with coronal and sagittal refor matted images. No IV contrast. . Automated exposure control and iterative reconstruction technique w ere employed. The dose-length product was 371.12 mGy-cm. Findings: NASAL SEPTUM: Left nasal septal deviation. OSTEOMEATAL UNITS: Bilaterally patent. NASAL TURBINATES AND NASOPHARYNX: Normal. PARANASAL SINUSES: Bilateral maxillary sinus. VISUALIZED MASTOIDS: Normal as visualized. BONES: Normal. SUPERFICIAL SOFT TISSUES/VISUALIZED BRAIN PARENCHYMA: Normal. IMPRESSION: Bilateral maxillary sinus disease. Otherwise no definite abnormality Reviewed, dictated and finalized at location A.
--- OUTSIDE RECORDS SUMMARY | 2024-11-09 13:58 | XMS_ITS | Clinical Summary ---
[facility] Organization [facility] Address [address] [place] [id number] Care Team Providers Care Grid Operator Name Role Phone Cresencio Weber MD Primary Care Provider + [phone] Allergies Active Allergy Reactions Criticality Noted Date [...] 11/06/2022 Assessment & Plan (07/05/2024 11:03 AM COMPRESSOR STATION CHIEF ENGINEER): On Nexlizet, LDL above goal at 88. Discussed improving dietary habits, also can consider PCSK9 inhibitor or Leqvio Chronic systolic heart failure 06/03/2022 Assessment & Plan (07/05/2024 11:01 AM COMPRESSOR STATION CHIEF ENGINEER): Unchanged EF, 38%. Unable to tolerate Entresto, [...] - continue carvedilol 6.25 b.i.d. - discussed DIESEL ENGINE MECHANIC APPRENTICE but declines - continue cardiac rehab - will repeat echo at six-month follow-up to reassess ejection fraction; if it is stable or reduced from prior then will advocate to her again to retry spironolactone Assessment & Plan (11/06/2022 10:20 PM COMPRESSOR STATION CHIEF ENGINEER): Primarily nonischemic cardiomyopathy though with coexisting single-vessel [...] also discussed in depth likely benefit of DIESEL ENGINE MECHANIC APPRENTICE D given her persistently low ejection fraction and wide left bundle branch block however she adamantly declines. - increase carvedilol back to 6.25 b.i.d. - continue cardiac rehab Assessment & Plan (08/06/2022 4:53 PM COMPRESSOR STATION CHIEF ENGINEER): Primarily nonischemic cardiomyopathy though with coexisting single-vessel [...] tolerated. She would be a candidate for DIESEL ENGINE MECHANIC APPRENTICE D given her left bundle branch block [...] 6 weeks Coronary artery disease invo lving [place] coronary artery of [place] heart without angina pectoris 06/03/2022 Assessment & Plan (07/05/2024 11:02 AM COMPRESSOR STATION CHIEF ENGINEER): Denying any complaints of angina. Continue beta-santana, aspirin, and Nexlizet Assessment & Plan (12/07/2023 2:47 PM CDT): History of mid LAD PCI and remains free of angina. - continue aspirin and Nexlizet, carvedilol Assessment & Plan (05/12/2023 1:12 PM CDT): History of mid LAD PCI and remains free of angina. - continue aspirin and Nexlizet, carvedilol Assessment & Plan (11/06/2022 10:18 PM COMPRESSOR STATION CHIEF ENGINEER): History of mid LAD PCI and remains free of angina. She reports history of diffuse myalgias and joint pain prompting discontinuation of multiple different statin agents and therefore is on Nexlizet which she seems to be tolerating. - continue aspirin and Nexlizet, carvedilol Assessment & Plan (08/06/2022 4:54 PM COMPRESSOR STATION CHIEF ENGINEER): History of mid LAD PCI and remains [...] Telephone [facility] Card[facility] [address] [place] [address] Karthikeyan Cotton MD from Last [...] Comments Blood Pressure 147/85 07/11/2024 1:08 PM COMPRESSOR STATION CHIEF ENGINEER Pulse 73 07/11/2024 1:08 PM COMPRESSOR STATION CHIEF ENGINEER Temperature 36.4 C (97.5 F) 07/11/2024 1:08 PM COMPRESSOR STATION CHIEF ENGINEER Respiratory Rate 16 07/11/2024 1:08 PM COMPRESSOR STATION CHIEF ENGINEER Oxygen Saturation 97% 07/11/2024 1:08 PM COMPRESSOR STATION CHIEF ENGINEER Inhaled Oxygen Concentration - - Weight 135.7 kg (299 lb 1.6 oz) 07/11/2024 1:08 PM COMPRESSOR STATION CHIEF ENGINEER Height 177.8 cm (5' 10 ) 07/05/2024 10: 13 AM COMPRESSOR STATION CHIEF ENGINEER Body Mass Index 42.92 07/05/2024 10:13 AM COMPRESSOR STATION CHIEF ENGINEER Plan of Treatment Health Maintenance Due Date [...] (#1) 2024 Insurance MEDICARE SOLUTIONS MEDICARE SOLUTIONS [place] [id number] Care Teams Grid Operator Relationship Specialty Start Date End Date Cresencio Weber MD PCP - General Family Medicine 11/05/22
--- OUTSIDE RECORDS SUMMARY | 2024-11-09 13:58 | XMS_ITS | Referral Summary ---
Author Organization [facility] D Address [address] [place] [address] Care Team Providers Care Program Facilitator Name Role Phone Cresencio Weber MD Primary Care Provider [phone] Encounters Date Type Department Care Team Description 11/07/2024 Telephone [facility] Cardiology [address] [place] [address] Karthikeyan Cotton MD from Last [...] 11/06/2022 Assessment & Plan (07/05/2024 11:03 AM OCEANOGRAPHY TEACHER): On Nexlizet, LDL above goal at 88. Discussed improving dietary habits, also can consider PCSK9 inhibitor or Leqvio Chronic systolic heart failure 06/03/2022 Assessment & Plan (07/05/2024 11:01 AM OCEANOGRAPHY TEACHER): Unchanged EF, 38%. Unable to tolerate [...] - continue carvedilol 6.25 b.i.d. - discussed JOURNEYMAN GLAZIER but declines - continue cardiac rehab - will repeat echo at six-month follow-up to reassess ejection fraction; if it is stable or reduced from prior then will advocate to her again to retry spironolactone Assessment & Plan (11/06/2022 10:20 PM OCEANOGRAPHY TEACHER): Primarily nonischemic cardiomyopathy though with coexisting [...] also discussed in depth likely benefit of JOURNEYMAN GLAZIER D given her persistently low ejection fraction and wide left bundle branch block however she adamantly declines. - increase carvedilol back to 6.25 b.i.d. - continue cardiac rehab Assessment & Plan (08/06/2022 4:53 PM OCEANOGRAPHY TEACHER): Primarily nonischemic cardiomyopathy though with coexisting [...] tolerated. She would be a candidate for JOURNEYMAN GLAZIER D given her left bundle branch block [...] 6 weeks Coronary artery disease invo lving [place] coronary artery of [place] heart without angina pectoris 06/03/2022 Assessment & Plan (07/05/2024 11:02 AM OCEANOGRAPHY TEACHER): Denying any complaints of angina. Continue beta-santana, aspirin, and Nexlizet Assessment & Plan (12/07/2023 2:47 PM CDT): History of mid LAD PCI and remains free of angina. - continue aspirin and Nexlizet, carvedilol Assessment & Plan (05/12/2023 1:12 PM CDT): History of mid LAD PCI and remains free of angina. - continue aspirin and Nexlizet, carvedilol Assessment & Plan (11/06/2022 10:18 PM OCEANOGRAPHY TEACHER): History of mid LAD PCI and remains free of angina. She reports history of diffuse myalgias and joint pain prompting discontinuation of multiple different statin agents and therefore is on Nexlizet which she seems to be tolerating. - continue aspirin and Nexlizet, carvedilol Assessment & Plan (08/06/2022 4:54 PM OCEANOGRAPHY TEACHER): History of mid LAD PCI and [...] Comments Blood Pressure 147/85 07/11/2024 1:08 PM OCEANOGRAPHY TEACHER Pulse 73 07/11/2024 1:08 PM OCEANOGRAPHY TEACHER Temperature 36.4 C (97.5 F) 07/11/2024 1:08 PM OCEANOGRAPHY TEACHER Respiratory Rate 16 07/11/2024 1:08 PM OCEANOGRAPHY TEACHER Oxygen Saturation 97% 07/11/2024 1:08 PM OCEANOGRAPHY TEACHER Inhaled Oxygen Concentration - - Weight 135.7 kg (299 lb 1.6 oz) 07/11/2024 1:08 PM OCEANOGRAPHY TEACHER Height 177.8 cm (5' 10 ) 07/05/2024 10: 13 AM OCEANOGRAPHY TEACHER Body Mass Index 42.92 07/05/2024 10:13 AM OCEANOGRAPHY TEACHER Plan of Treatment Not on file Insurance MEDICARE SOLUTIONS MEDICARE SOLUTIONS MEDICARE SOLUTIONS Care Teams Program Facilitator Relationship Specialty Start Date End Date Cresencio Weber MD PCP - General Family Medicine 11/05/22
--- OUTSIDE RECORDS SUMMARY | 2024-11-09 13:58 | XMS_ITS | Patient Health Record ---
Author Organization [facility] Medical Address [address] [address] Care Team Providers Care Renewals Representative Name Role Phone MIKKI ROUSE Primary Care [...] MEDI ADV BLUE O PPO D-SNP [address] [address] [place] [address] [id number] KERRY OLMOS Self - patient is the insured 2 Medical (General) History Medical History History ICD Code Problems: Sinus Problems: Active Bronchitis HTN Arthritis Asthma Uterine cancer Heart disease Sleep apnea Surgical History Surgery Date(Month/Year) Gallbladder 2018 Tonsils 1961 Hysterectomy estab Hospitalization History Reason Date(Month/Year)
--- OUTSIDE RECORDS SUMMARY | 2024-11-09 13:58 | XMS_ITS | Encounter Summary ---
Author Organization [facility] Healthcare Address [address] [place] [address] Care Team Providers Care Analysis Mgr Name Role Phone Cresencio Weber MD Primary Care Provider [phone] Encounter Details Date Type Department Care Team (Late st Contact Info) Description 11/07/2024 Telephone [facility] Cardiology [address] [facility] [address] [place] [address] Karthikeyan Cotton MD [address] [facility] [address] [place] [address] Social History Tobacco Use Types [...] on filedocumented in this encounter Care Teams Analysis Mgr Relationship Specialty Start Date End Date Cresencio Weber MD PCP - General Family Medicine 11/05/22 documented as of this encounter
== END 2024-11-09 12:40 | disposition home or self-care (01) ==
LOC: CHSIMG 12:45
PROVIDERS: PCP Family Medicine
DX: J32.0 Chronic maxillary sinusitis (principal)
CPT/HCPCS: 70486

== ENCOUNTER 2025-04-17 11:55 | Outpatient (CLI) | payer MEDICARE, SELFPAY ==
--- NOTE | ~2025-04-17 | MM_ITS ---
EXAMINATION: MM screening zion BI w herlinda HISTORY: Screening mammogram TECHNIQUE: Craniocaudal and mediolateral oblique 3-D tomosynthesis images were obtained and synthetic 2-D images were generated. CAD analysis was submitted and interpreted. COMPARISON: 04/14/2024, 09/03/2023 BREAST PARENCHYMAL COMPOSITION:Not Dense. The breasts are almost entirely fatty FINDINGS: No suspicious mass, calcification, or architectural distortion are identified in either renata ast to suggest malignancy. There has been no suspicious interval change. IMPRESSION: No mammographic evidence of malignancy. Recommend routine screening mammography in one year. BI-RADS Category 1: Negative Reviewed, dictated and finalized at location .
--- OUTSIDE RECORDS SUMMARY | 2025-04-17 13:02 | XMS_ITS | Patient Health Record ---
Author Organization [facility] Medical Address [address] [address] Care Team Providers Care Food Cashier Name Role Phone MIKKI ROUSE Primary Care Provider Allergies Allergen (clinical drug ingredient) Drug/Non Drug Allergy documented on EMR Reaction Allergy Type Onset Date Status Substance with sulfonamide structure and antibacterial mechanism of action (substance) Sulfa Drugs (uncoded) rash Allergy Active nebivolol Bystolic cough Drug Allergy Active Erythrocin rash Drug Allergy Active Keflex rash Drug Allergy Active lisinopril Lisinopril cough Drug Allergy Activ e nystatin Nystatin nausea and vomiting Drug Allergy Active codeine Codeine Unknown Drug Allergy Active Latex Latex itching Allergy Active losartan Losartan shortness of breath Drug Allergy Active Penicillin rash Drug Allergy Active Reason For Referral No Information Medications Medication SIG (Take, Route, Frequency, Duration) Notes Start Date End Date Status Doxycycline Monohydrate 100 MG Tablet 1 tablet Orally Twice a day; Duration: 7 days Active Levalbuterol Tartrate 45 MCG/ACT Aerosol 2 puff as needed Inhalation every 4-6 hrs; Duration: 30 days unable to tolerate albuterol due to s/e, has prior Rx of levalbuterol which she has done well with thank you 02/04/2022 Active Nexlizet 180-10 MG Tablet 1 tablet Orally Once a day Active Vitamin D 50 MCG (1999) Capsule 1 capsule Orally Once a day Active Carvedilol 12.5 MG Tablet 1 tablet with food Orally Twice a day Active Baby Aspirin Active methylPREDNISolone 4 MG Tablet Therapy Pack as directed Orally; Duration: 6 days Active Social History Tobacco Use: Social History Observation Description Date Details (start date - stop date) Never Smoker NA - NA Sex Assigned At : Social History Observation Description Sex Assigned At Female Social History Sexual History: Social Info Question Answer Notes Sexual History Had sex in the past 12 months (vaginal, oral, or anal)? No Have you ever had a Sexually transmitted disease ? No Last menstrual period Hysterectomy Drugs/Alcohol: Social Info Question Answer Notes SBIRT (2018 Edition) Patient refused/dec lined SBIRT screening at this time? No 1. How often do you have a drink containing alcohol? Never 3. How often do you have five or more drinks on one occasion? Never SCORE 0 Interpretation Negative How many times in the past year have you used an illegal drug or used a prescription medication for non-medical reasons? 0 Total Count 0 Interpretation Negative Tobacco Use: Social Info Question Answer Notes Tobacco Use/Smoking Are you a: never smoker Plan Of Treatment No Information Insurance Providers Payer Name Payer Address Payer Phone Subscriber Number Group Number Insured Name Patient Relationship to Insured Coverage Start Date Coverage End Date [facility]M [facility]I [facility]-[place] [address] [address] [place] [address] [id number] [id number] Self - patient is the insured 2 Medical (General) History Medical History History ICD Code Problems: Sinus Problems: Active Bronchitis HTN Arthritis Asthma Uterine cancer Heart disease Sleep apnea Surgical History Surgery Date(Month/Year) Gallbladder 2018 Tonsils 196 Hysterectomy estab Hospitalization History Reason Date(Month/Year)
--- OUTSIDE RECORDS SUMMARY | 2025-04-17 13:02 | XMS_ITS | Clinical Summary ---
Author Organization [facility] Address [address] [place] [address] Care Team Providers Care Bundle Packer Name Role Phone Cresencio Weber MD Primary Care Provider [phone] Allergies Active Allergy Reactions Criticality Noted Date [...] WITH MEALS 180 tablet 3 09/06/2024 Active levocetirizine (XYZAL) 5 mg tablet Take 1 tablet (5 mg total) by mouth every evening Active budesonide-glyc opyr-formoterol (Breztri Aerosphere) 160-9-4.8 mcg/actuation inhaler Inhale 2 puffs 2 (two) times a day Active Active Problems Problem Noted Date Diagnosed Date Statin myopathy 11/06/2022 Assessment & Plan (07/05/2024 11:03 AM CERTIFIED SURGICAL TECHNOLOGIST): On Nexlizet, LDL above goal at 88. Discussed improving dietary habits, also can consider PCSK9 inhibitor or Leqvio Chronic systolic heart failure 06/03/2022 Assessment & Plan (01/09/2025 10:27 AM CDT): EF 30% today. Euvolemic on exam NYHA 3 symptoms. She has not had numerous medication intolerances and has not tolerated SGLT2 inhibitor or Entresto or ARB. We have had repeated discussions about ICD and she has not interested -- continue carvedilol 6.25 b.I.d. -- plan 1 year fu visit with TTE same day Assessment & Plan (07/05/2024 11:01 AM CERTIFIED SURGICAL TECHNOLOGIST): Unchanged EF, 38%. Unable to tolerate Entresto, ARB, and SGLT2 inhibitor. Now unable to tolerate spironolactone due to hyperkalemia. Continue carvedilol, blood pressure is well controlled overall. Consider Jonnie, will give patient information about this, she [...] - continue carvedilol 6.25 b.i.d. - discussed WHEEL ALIGNMENT MECHANIC but declines - continue cardiac rehab - will repeat echo at six-month follow-up to reassess ejection fraction; if it is stable or reduced from prior then will advocate to her again to retry spironolactone Assessment & Plan (11/06/2022 10:20 PM CERTIFIED SURGICAL TECHNOLOGIST): Primarily nonischemic cardiomyopathy though with coexisting single-vessel [...] also discussed in depth likely benefit of WHEEL ALIGNMENT MECHANIC D given her persistently low ejection fraction and wide left bundle branch block however she adamantly declines. - increase carvedilol back to 6.25 b.i.d. - continue cardiac rehab Assessment & Plan (08/06/2022 4:53 PM CERTIFIED SURGICAL TECHNOLOGIST): Primarily nonischemic cardiomyopathy though with coexisting single-vessel [...] tolerated. She would be a candidate for WHEEL ALIGNMENT MECHANIC D given her left bundle branch block [...] 6 weeks Coronary artery disease invo [place]ving [place] coronary artery of [place] heart without angina pectoris 06/03/2022 Assessment & Plan (01/08/2025 3:14 PM CDT): History of mid LAD PCI and remains free of angina. -- continue aspirin and Nexlizet, carvedilol Assessment & Plan (07/05/2024 11:02 AM CERTIFIED SURGICAL TECHNOLOGIST): Denying any complaints of angina. Continue beta-santana, aspirin, and Nexlizet Assessment & Plan (12/07/2023 2:47 PM CDT): History of mid LAD PCI and remains free of angina. - continue aspirin and Nexlizet, carvedilol Assessment & Plan (05/12/2023 1:12 PM CDT): History of mid LAD PCI and remains free of angina. - continue aspirin and Nexlizet, carvedilol Assessment & Plan (11/06/2022 10:18 PM CERTIFIED SURGICAL TECHNOLOGIST): History of mid LAD PCI and remains free of angina. She reports history of diffuse myalgias and joint pain prompting discontinuation of multiple different statin agents and therefore is on Nexlizet which she seems to be tolerating. - continue aspirin and Nexlizet, carvedilol Assessment & Plan (08/06/2022 4:54 PM CERTIFIED SURGICAL TECHNOLOGIST): History of mid LAD PCI and remains [...] and can discuss further at future visits Surgical History Surgery Date Site/Laterality Comments TONSILLECTOMY APPENDECTOMY CHOLECYSTECTOMY HYSTERECTOMY Medical History Medical History Date Comments Asthma KATIE (obstructive sleep apnea) Hypercholesteremia Hypertension Heart failure Uterine cancer (HCC) Basal cell carcinoma Family [...] Sign Reading Time Taken Comments Blood Pressure 134/86 01/09/2025 9:56 AM CDT Pulse 90 01/09/2025 9:56 AM CDT Temperature 36.4 C (97.5 F) 07/11/2024 1:08 PM CERTIFIED SURGICAL TECHNOLOGIST Respiratory Rate 16 07/11/2024 1:08 PM CERTIFIED SURGICAL TECHNOLOGIST Oxygen Saturation 96% 01/09/2025 9:56 AM CDT Inhaled Oxygen Concentration - - Weight 136.1 kg (300 lb) 01/09/2025 9:56 AM CDT Height 177.8 cm (5' 10) 01/09/2025 9:56 AM CDT Body Mass Index 43.05 01/09/2025 9:56 AM CDT Plan of Treatment Health Maintenance Due Date [...] Well Visit 65+ 2019 Influenza Vaccine (#1) 2025 Insurance [facility] Address: [facility] [address] [place] [address] [facility] Address[address] [address] [place] [address] [facility] Address: [address] [address] [place] [address] Care Teams Bundle Packer Relationship Specialty Start Date End Date Cresencio Weber MD PCP - General Family Medicine 11/05/22
== END 2025-04-17 11:56 | disposition home or self-care (01) ==
LOC: CHSIMG 11:56
PROVIDERS: PCP Family Medicine; Visit Provider Nurse Practitioner Family
DX: Z12.31 Encounter for screening mammogram for malignant neoplasm of breast (principal)
CPT/HCPCS: 77063; 77067

== ENCOUNTER 2025-05-13 11:31 | Outpatient (CLI) | payer MEDICARE, SELFPAY ==
[2025-05-13 12:07] LABS: Hematocrit 41.0 % (35.0-42.0); Hemoglobin 13.0 g/dL (11.7-13.8); Immature Granulocyte Percent A 0.2 % (0.0-0.0); Lymphocytes Absolute Auto 1.28 K/mm3 (1.10-4.50); Mean Corpuscular HGB Conc 31.7 g/dL (32-36); Mean Corpuscular Hemoglobin 29.3 pg (27.0-31.0); Mean Corpuscular Volume 92.6 fL (78.0-102.0); Nucleated Red Blood Cells Absolute Auto 0.00 K/mm3 (0.00-0.00); Nucleated Red Blood Cells Perc 0.0 % (0-0.0); Platelet Count Result 313 K/mm3 (150-420); Red Blood Count 4.43 M/mm3 (4.20-5.40); White Blood Count 6.5 K/mm3 (4.8-10.8)
[2025-05-13 12:26] LABS: Alanine Aminotransferase 18 U/L (6-35); Albumin Level 4.2 g/dL (3.5-5.1); Alkaline Phosphatase 73 U/L (38-126); Anion Gap 9 mmol/L (4-12); Aspartate Amino Transferase 28 U/L (14-36); Bilirubin,Total 0.6 mg/dL (0.2-1.3); Blood Urea Nitrogen 17 mg/dL (7-17); Calcium 9.8 mg/dL (8.4-10.2); Carbon Dioxide 28 mmol/L (22-30); Chloride 104 mmol/L (98-107); Estimated Glomerular Filt Rate 53; Glucose 92 mg/dL (65-110); Osmolality Calculated 293 mOsm/kg (285-295); Potassium 5.4 mmol/L (3.4-5.0); Sodium 141 mmol/L (137-145); Total Protein 6.4 g/dL (6.3-8.2)
[2025-05-13 12:55] LABS: Appearance Urine Clear (Clear); Glucose Urine UA Negative (Negative); Nitrate Urine Negative (Negative); Specific Grav Ur 1.010 (1.010-1.020)
[2025-05-13 13:08] LABS: Add Urine Microscopic? NO; Leukocyte Esterase Ur Negative (Negative)
== END 2025-05-13 11:32 | disposition home or self-care (01) ==
LOC: CHSLAB 11:34
PROVIDERS: PCP Family Medicine
DX: N39.0 Urinary tract infection, site not specified (principal); R53.82 Chronic fatigue, unspecified
CPT/HCPCS: 36415; 80053; 81003; 85025

== ENCOUNTER 2025-05-29 08:05 | Observation (INO) | payer MEDICARE, SELFPAY ==
[2025-05-29] VITALS (11 sets, daily range): BP systolic 137–168; BP diastolic 68–100; PULSE 60–84; RESP 18–20; TEMP 36.5–36.6; O2SAT 97–100; BMI 41.3
--- NOTE | ~2025-05-29 | XR_ITS ---
Lumbar spine series Indication: Fall Comparison: None Technique: 3 views lumbar spine Findings: 5 nonrib-bearing lumbar-type vertebral bodies. No acute fracture. No listhesis. Vertebral bodies normal height. Moderate degenerative changes. SI joints congruent. Sacrum intact. Cholecystectomy clips. Mild aortic calcified atherosclerotic disease. IMPRESSION: 1. No acute findings. Reviewed, dictated and finalized at location R. IMPRESSION: 1. No acute findings.
--- NOTE | ~2025-05-29 | XR_ITS ---
Examination: XR hip LT min 3V w AP pelvis Clinical History: fall Comparison: None Technique: 2 views left hip with AP pelvis Findings/impression: 1. No fracture or dislocation left hip. 2. Moderate degenerative changes bilateral hips, with worse joint space narrowing right hip. 3. No pelvic fracture identified. Reviewed, dictated and finalized at location .
--- NOTE | ~2025-05-29 | CT_ITS ---
EXAMINATION: CT lumbar spine wo con COMPARISON: None HISTORY: pain TECHNIQUE: Axial images were obtained through the spine without IV contrast. Coronal, sagittal reconstruction images were obtained from the axial views. CT scan performed using dose optimization techniques including the following automated exposure control; adjustment of mA and/or kV; use of iterative reconstruction technique. Automatic exposure control was used to reduce radiation dose. Permanent radiation dose record is archived to PACS. FINDINGS: There is an anterior superior endplate fracture of L1. With loss of height and percent, no retropulsion. No additional fracture or subluxation identified. Moderate loss of disc height at T12-L1, L1-2 with moderate to severe canal and foraminal stenosis. Soft tissues unremarkable. Impression: Acute fracture detailed above Reviewed, dictated and finalized at location P. Impression: Acute fracture detailed above
--- NOTE | ~2025-05-29 | XR_ITS ---
Examination: XR foot RT min 3V Clinical History: fall Comparison: None Technique: 4 views right foot Findings/impression: 1. Thin metallic foreign body within plantar soft tissues first toe distal portion. 2. Moderate midfoot degenerative changes. 3. No fracture or other acute abnormality identified. Reviewed, dictated and finalized at location R.
--- NOTE | 2025-05-29 08:08 | ED_ITS ---
HPI - Fall General Chief Complaint: Fall Stated Complaint: fall Time Seen by Provider: 05/29/25 08:08 Source: patient Mode of arrival: wheelchair Limitations: no limitations History of Present Illness HPI Narrative: Patient is a 70-year-old female with a fall at home ground level prior to arrival. Patient injured her lower back and left hip and right foot. She has pain at all these 3 areas. She did not hit her head or neck. She slipped on her own urine when she was incontinent this morning. complaint: fall Onset (ago): minute(s) (Thirty) Fall from: standing Fall witnessed: no Place fall occurred: home Loss of consciousness: none Prolonged down time: no Symptoms prior to fall: none Context: tripped/slipped Location of injury: back, pelvis (Left hip) and other (Right foot) Severity: moderate Severity scale (1-10): 5 Quality: sharp Associated symptoms (after fall): denies Related Data Home Medications ?Medication ?Instructions ?Recorded ?Confirmed ?Last Taken ?Type bempedoic acid 180 mg-ezetimibe 10 1 tablet PO DAILY 0 04/22/22 12/09/24 11/08/24 History mg tablet (Nexlizet) cholecalciferol (vitamin D3) 50 50 mcg PO DAILY 12/09/24 11/08/24 History mcg (2,000 unit) capsule aspirin 81 mg chewable tablet 81 mg PO DAILY 06/16/22 12/09/24 11/08/24 History carvedilol 3.125 mg tablet 6.25 mg PO Q12H 05/15/2311/08/24 History Allergies Allergy/AdvReac Type Severity Reaction Status Date / Time atorvastatin Allergy Unknown Verified 05/29/25 08:14 chlorthalidone Allergy Unknown Verified 05/29/25 08:14 latex Allergy Rash Verified 05/29/25 08:14 losartan Allergy Unknown Verified 05/29/25 08:14 valsartan Allergy Unknown Verified 05/29/25 08:14 [id number] Reductase AdvReac Intermediate Muscle Pain Verified 05/29/25 08:14 Inhibitor Macrolide Antibiotics AdvReac Rash Verified 05/29/25 08:14 Penicillins AdvReac Rash Verified 05/29/25 08:14 Quinolones AdvReac Rash Verified 05/29/25 08:14 Sulfa (Sulfonamide AdvReac Rash Verified 05/29/25 08:14 Antibiotics) Review of Systems Review of Systems: All systems reviewed & are unremarkable except as noted in HPI and below Constitutional: Constitutional: Reports no additional constitutional complaints Eyes: Eyes: Reports no additional eye complaints ENT: Reports system reviewed and no additional complaints, except as documented Cardiovascular: Cardiovascular: Reports no additional cardiovascular complaints Respiratory: Respiratory: Reports no additional respiratory complaints Gastrointestinal: Gastrointestinal: Reports no additional gastrointestinal complaints Genitourinary: Genitourinary: Reports no additional female genitourinary complaints Musculoskeletal: Musculoskeletal: Reports no additional musculoskeletal complaints Integumentary/Breasts: Skin/Breast: Reports system reviewed and no additional complaints, except as docu Neurologic: Reports system reviewed and no additional complaints, except as documented Psychiatric: Psychiatric: Reports no additional psychiatric complaints Endocrine: Endocrine: Reports no additional endocrine complaints Hematologic/Lymphatic: Hematologic/Lymphatic: Reports no additional hematologic/lymphatic complaints Allergic/Immunologic: Allergic/Immunologic: Reports no additional allergic/immunologic complaints [facility] Past Medical History Medical History Near syncope Chest congestion Cough Asthma Calcaneal fracture Flank pain Constipation Asthma exacerbation, mild Asthma exacerbation Bronchitis Right ankle pain Right foot pain ITB syndrome Chronic pain Depression KATIE (obstructive sleep apnea) Cardiomyopathy Internal derangement of right knee GERD (gastroesophageal reflux disease) Uterine cancer Hyperlipidemia Hypertension Surgical History Surgical History History of heart artery stent [address] Vazquez/SHELIA Larios History of cholecystectomy 2013 History of tonsillectomy 1961 History of appendectomy 1961 History of total abdominal hysterectomy Family History Family History Father AA (aortic aneurysm) Mother Acute myocardial infarction Sibling COPD (chronic obstructive pulmonary disease) Hypertension Thyroid activity decreased Other Aneurysm Arthritis Asthma Brain tumor Carcinoma of colon Diabetes mellitus Heart disease Hyperlipidemia Neuropathy Skin cancer Social History Social History Smoking status: Never smoker Second hand tobacco smoke exposure: Yes Alcohol intake: never Substance use: never Substance use type: does not use Do You Feel Safe in your Home?: Yes Lack of Transportation: No Lack of Food: Never True Current Housing: I Have Housing Concerned About Future Housing: No Difficulty Paying Gas/Electric Bills: No Difficulty Paying for Meds: No Currently Unemployed: No Education: High School Diploma/GED Difficulty w/ Childcare or Family Care: No Living arrangements: alone Occupation/Education: retired Additional occupation/education comments: [employer] Gender identity (if verbalized by the patient): Female Spiritual care concerns: No Exam Const: General: healthy appearing Nutritional Appearance: well nourished Orientation/consciousness: patient oriented x3 Limitations: no limitations HENMT: Head: normal to inspection Ears: external ears normal Face/Nose/Sinus: Normal external nose present Eyes: Conjunctivae: conjunctivae normal Pupils: Equal, round and reactive pupils present EOM: EOMs intact bilaterally Neck: Neck: normal visual inspection Chest: Chest palpation & inspection: normal inspection of the chest Resp: Effort & Inspection: normal respiratory effort and not labored Auscultation: clear to auscultation bilaterally and no crackles Cardio: Rate: regular rate Rhythm: regular rhythm Heart sounds: no murmurs GI: Inspection: non-distended Auscultation: normal bowel sounds : General: Yes bladder normal to palpation Back/Spine/Pelvis: Back: no CVA tenderness Other: Tender midline lumbar spine around L4-5 and tender left hip at the greater trochanter region and right foot is tender with a small superficial skin abrasion Skin: General skin exam: normal color Rashes: no rashes Wounds: no wounds Other: See extremity exam Neuro: General: patient oriented x3, moves all extremities and no meningeal signs Extrem: General: normal to inspection, no clubbing, cyanosis or edema and no pedal edema Psych: Mental Status: mental status grossly normal Affect: normal affect and Sad affect present Attitude: cooperative Course Vital Signs Vital signs: Vital Signs Temperature 36.5 C 05/29/25 08:05 Pulse Rate 70 05/29/25 08:05 Respiratory Rate 20 05/29/25 08:05 Blood Pressure 137/93 H 05/29/25 08:05 Pulse Oximetry 100 05/29/25 08:05 Oxygen Delivery Room Air 05/29/25 08:05 Temperature 36.5 C 05/29/25 08:05 Pulse Rate 70 05/29/25 08:05 Respiratory Rate 20 05/29/25 08:05 Blood Pressure 137/93 H 05/29/25 08:05 Pulse Oximetry 100 05/29/25 08:05 Oxygen Delivery Room Air 05/29/25 08:05 MDM - Fall MDM Narrative Medical decision making narrative: Patient is a 70-year-old female with ground level fall prior to arrival and injured her lumbar spine left hip and right foot. X-rays. Pain control. Imaging Data Attestation: I personally reviewed and interpreted this imaging study as follows: Radiologist's impression: X-ray lumbar spine is negative for acute process X-ray left hip and pelvis is negative for acute process X-ray right foot shows Findings/impression: 1. Thin metallic foreign body within plantar soft tissues first toe distal portion. 2. Moderate midfoot degenerative changes. 3. No fracture or other acute abnormality identified. Discharge Plan Discharge Clinical Impression: Fall as cause of accidental injury at home as place of occurrence, Abrasion of foot Patient Disposition: Home Condition: Stable Instructions: Fall Prevention for Older Adults (ED) Additional Instructions: Please discuss with your primary doctor about your right foot great toe foreign body piece of metal to be dealt with as an outpatient. This did not occur today. Patient Language: Mauritian Prescriptions: No Action carvedilol 3.125 mg tablet 6.25 mg PO Q12H Rx Instructions: must administer with a meal/food Nexlizet 180-10 mg Tablet 1 tablet PO DAILY cholecalciferol (vitamin D3) 50 mcg (2,000 unit) capsule 50 mcg PO DAILY aspirin 81 mg tablet,chewable 81 mg PO DAILY albuterol sulfate 90 mcg/actuation HFA aerosol inhaler 1 - 2 puff inhalation Q4-6H PRN (Reason: shortness of breath or wheezing) Qty: 8.5 2RF fluticasone propionate [Flonase Allergy Relief] 50 mcg/actuation spray,suspension 1 spray intranasal DAILY Qty: 18.2 0RF Rx Instructions: administer into each nostril albuterol sulfate 2.5 mg/0.5 mL solution for nebulization 2.5 mg inhalation Q20M PRN (Reason: shortness of breath or wheezing) Qty: 30 2RF Rx Instructions: for up to 3 doses, then ok to give 2.5-10mg NEB q1-4 hours as needed. albuterol sulfate 0.63 mg/3 mL solution for nebulization 0.63 mg inhalation Q4-6H PRN (Reason: shortness of breath or wheezing) Qty: 75 0RF levalbuterol tartrate [Xopenex HFA] 45 mcg/actuation HFA aerosol inhaler 2 inh inhalation Q6H Qty: 15 3RF Breztri Aerosphere 160-9-4.8 mcg/actuation HFA aerosol inhaler 2 inh inhalation BID Qty: 32.1 3RF Rx Instructions: Rinse mouth and spit after each use. Use with spacer. Follow-up/Referrals: UNKNOWN,DOCTOR [Non-Staff] Time of Disposition: 09:41
--- OUTSIDE RECORDS SUMMARY | 2025-05-29 08:14 | XMS_ITS | Patient Health Record ---
Author Organization [facility] Medical Address [address] [address] Care Team Providers Care Astronomy Teacher Name Role Phone MIKKI ROUSE Primary Care [...] Date Coverage End Date ANTHEM MEDI ADV [facility] [place]-SNP [address] [address] [place] [address] [id number] [facility] K[facility] Self - patient is the insured 2 Medical (General) History Medical History History ICD Code Problems: Sinus Problems: Active Bronchitis HTN Arthritis Asthma Uterine cancer Heart disease Sleep apnea Surgical History Surgery Date(Month/Year) Gallbladder 2018 Tonsils 196 Hysterectomy estab Hospitalization History Reason Date(Month/Year)
--- OUTSIDE RECORDS SUMMARY | 2025-05-29 08:14 | XMS_ITS | Clinical Summary ---
[facility] Organization [facility] D Address [address] [place] [id number] Care Team Providers Care General Studies Program Chair Name Role Phone Cresencio Weber MD Primary Care Provider [phone] Allergies Active Allergy Reactions Criticality Noted Date [...] 2 (two) times a day 4 Active carvediloL (COREG) 6.25 mg tablet TAKE 1 TABLET BY MOUTH TWICE A DAY WITH MEALS 180 tablet 3 5 Active levocetirizine (XYZAL) 5 mg tablet Take 1 tablet (5 mg total) by mouth every evening Active budesonide-gly copyr-formoter ol (Breztri Aerosphere) 160-9-4.8 mcg/actuation inhaler Inhale 2 puffs 2 (two) times a day Active bempedoic acid-ezetimibe (Nexlizet) 180-10 mg tablet TAKE 1 TABLET BY MOUTH EVERY DAY 90 tablet 2 5 Active bempedoic acid-ezetimibe (Nexlizet) 180-10 mg tablet Take 1 tablet by mouth daily 90 tablet 3 4 05/10/20 25 Discontinued Active Problems Problem Noted Date Diagnosed Date Statin myopathy 11/06/2022 Assessment & Plan (07/05/2024 11:03 AM HIP HOP DANCER): On Nexlizet, LDL above goal at 88. [...] day Assessment & Plan (07/05/2024 11:01 AM HIP HOP DANCER): Unchanged EF, 38%. Unable to tolerate Entresto, [...] - continue carvedilol 6.25 b.i.d. - discussed NITRILES LAB TECHNICIAN but declines - continue cardiac rehab - will repeat echo at six-month follow-up to reassess ejection fraction; if it is stable or reduced from prior then will advocate to her again to retry spironolactone Assessment & Plan (11/06/2022 10:20 PM HIP HOP DANCER): Primarily nonischemic cardiomyopathy though with coexisting single-vessel [...] also discussed in depth likely benefit of NITRILES LAB TECHNICIAN D given her persistently low ejection fraction and wide left bundle branch block however she adamantly declines. - increase carvedilol back to 6.25 b.i.d. - continue cardiac rehab Assessment & Plan (08/06/2022 4:53 PM HIP HOP DANCER): Primarily nonischemic cardiomyopathy though with coexisting single-vessel [...] tolerated. She would be a candidate for NITRILES LAB TECHNICIAN D given her left bundle branch block [...] 6 weeks Coronary artery disease invo lving [place] coronary artery of [place] heart without angina pectoris 06/03/2022 Assessment & Plan (01/08/2025 3:14 PM CDT): History of mid LAD PCI and remains free of angina. -- continue aspirin and Nexlizet, carvedilol Assessment & Plan (07/05/2024 11:02 AM HIP HOP DANCER): Denying any complaints of angina. Continue beta-santana, aspirin, and Nexlizet Assessment & Plan (12/07/2023 2:47 PM CDT): History of mid LAD PCI and remains free of angina. - continue aspirin and Nexlizet, carvedilol Assessment & Plan (05/12/2023 1:12 PM CDT): History of mid LAD PCI and remains free of angina. - continue aspirin and Nexlizet, carvedilol Assessment & Plan (11/06/2022 10:18 PM HIP HOP DANCER): History of mid LAD PCI and remains free of angina. She reports history of diffuse myalgias and joint pain prompting discontinuation of multiple different statin agents and therefore is on Nexlizet which she seems to be tolerating. - continue aspirin and Nexlizet, carvedilol Assessment & Plan (08/06/2022 4:54 PM HIP HOP DANCER): History of mid LAD PCI and remains [...] Encounters Date Type Department Care Team Description 05/23/2025 Telephone [facility] Cardiology [address] [place] [address] [address], [place] [address] Karthikeyan Cotton MD 05/16/2025 Telephone [facility] Cardiology [address] [place] [address] [address], [place] [address] Karthikeyan Cotton MD Test Results 05/08/2025 Telephone [facility] Cardiology [address] [place] [address] [address], [place] [address] Karthikeyan Cotton MD from Last 3 Months [...] 36.4 C (97.5 F) 07/11/2024 1:08 PM HIP HOP DANCER Respiratory Rate 16 07/11/2024 1:08 PM HIP HOP DANCER Oxygen Saturation 96% 01/09/2025 9:56 AM CDT [...] 65+ 2019 Influenza Vaccine (#1) 2025 Insurance [facility] MEDIC[facility] ADVANTAGE [facility] Care Teams General Studies Program Chair Relationship Specialty Start Date End Date Cresencio Weber MD PCP - General Family Medicine 11/05/22
[2025-05-29] MEDS: MORPHINE SULFATE (*CRX) 4 MG/ML INJ IM (08:18)
--- OUTSIDE RECORDS SUMMARY | 2025-05-29 09:12 | XMS_ITS | Clinical Summary ---
Author Organization [facility] D Address [address] [place] [id number] Care Team Providers Care Technical Expert Name Role Phone Cresencio Weber MD Primary Care Provider [phone] Allergies Active Allergy Reactions Criticality Noted Date [...] 11/06/2022 Assessment & Plan (07/05/2024 11:03 AM SOLDERING INSPECTOR): On Nexlizet, LDL above goal at 88. [...] day Assessment & Plan (07/05/2024 11:01 AM SOLDERING INSPECTOR): Unchanged EF, 38%. Unable to tolerate Entresto, [...] - continue carvedilol 6.25 b.i.d. - discussed FRICTION SAW OPERATOR but declines - continue cardiac rehab - will repeat echo at six-month follow-up to reassess ejection fraction; if it is stable or reduced from prior then will advocate to her again to retry spironolactone Assessment & Plan (11/06/2022 10:20 PM SOLDERING INSPECTOR): Primarily nonischemic cardiomyopathy though with coexisting single-vessel [...] also discussed in depth likely benefit of FRICTION SAW OPERATOR D given her persistently low ejection fraction and wide left bundle branch block however she adamantly declines. - increase carvedilol back to 6.25 b.i.d. - continue cardiac rehab Assessment & Plan (08/06/2022 4:53 PM SOLDERING INSPECTOR): Primarily nonischemic cardiomyopathy though with coexisting single-vessel [...] tolerated. She would be a candidate for FRICTION SAW OPERATOR D given her left bundle branch block [...] that losartan generally does not cause cough chritsel to Garrett inhibitors, she was very concerned [...] 6 weeks Coronary artery disease invo lving [place] coronary artery of [place] heart without angina pectoris 06/03/2022 Assessment & Plan (01/08/2025 3:14 PM CDT): History of mid LAD PCI and remains free of angina. -- continue aspirin and Nexlizet, carvedilol Assessment & Plan (07/05/2024 11:02 AM SOLDERING INSPECTOR): Denying any complaints of angina. Continue beta-santana, aspirin, and Nexlizet Assessment & Plan (12/07/2023 2:47 PM CDT): History of mid LAD PCI and remains free of angina. - continue aspirin and Nexlizet, carvedilol Assessment & Plan (05/12/2023 1:12 PM CDT): History of mid LAD PCI and remains free of angina. - continue aspirin and Nexlizet, carvedilol Assessment & Plan (11/06/2022 10:18 PM SOLDERING INSPECTOR): History of mid LAD PCI and remains free of angina. She reports history of diffuse myalgias and joint pain prompting discontinuation of multiple different statin agents and therefore is on Nexlizet which she seems to be tolerating. - continue aspirin and Nexlizet, carvedilol Assessment & Plan (08/06/2022 4:54 PM SOLDERING INSPECTOR): History of mid LAD PCI and remains [...] Type Department Care Team Description 05/23/2025 Telephone [facility] Cardiology [address] [place] [address] [address] [address] Karthikeyan Cotton MD 05/16/2025 Telephone [facility] Cardiology [address] [place] [address] [address] [address] Karthikeyan Cotton MD Test Results 05/08/2025 Telephone [facility] Cardiology [address] [place] [address] [address] [address] Karthikeyan Cotton MD from Last 3 Months [...] 36.4 C (97.5 F) 07/11/2024 1:08 PM SOLDERING INSPECTOR Respiratory Rate 16 07/11/2024 1:08 PM SOLDERING INSPECTOR Oxygen Saturation 96% 01/09/2025 9:56 AM CDT [...] 65+ 2019 Influenza Vaccine (#1) 2025 Insurance [facility] MEDIC[facility] ADV[facility] Care Teams Technical Expert Relationship Specialty Start Date End Date Cresencio Weber MD PCP - General Family Medicine 11/05/22
[2025-05-29] MEDS: TETANUS,DIPHTHERIA,AC PERTUSSIS ADULT 0.5 ML (ADACEL) IM (09:52)
--- NOTE | 2025-05-29 12:46 | ADMGEN ---
This patient, Beverly Lucero, was admitted to 2nd Floor Room 205-2. Patient/family oriented to hospital policies and general routines including ID bracelet, bed and alarms, visiting hours, pain management, procedures, bathroom and other care routines, personal items, smoking policy, room service/diet, and visiting hours. Information on how to activate the Rapid Response Team has been discussed. Patient/Family are encouraged to report perceived risks to care and to ask questions if they do not understand what they are told or what they should do.
[2025-05-29 14:00] LABS: Hematocrit 41.7 % (35.0-42.0); Hemoglobin 13.3 g/dL (11.7-13.8); Immature Granulocyte Percent A 0.3 % (0.0-0.0); Lymphocytes Absolute Auto 1.42 K/mm3 (1.10-4.50); Mean Corpuscular HGB Conc 31.9 g/dL (32-36); Mean Corpuscular Hemoglobin 29.4 pg (27.0-31.0); Mean Corpuscular Volume 92.3 fL (78.0-102.0); Nucleated Red Blood Cells Absolute Auto 0.00 K/mm3 (0.00-0.00); Nucleated Red Blood Cells Perc 0.0 % (0-0.0); Platelet Count Result 290 K/mm3 (150-420); Red Blood Count 4.52 M/mm3 (4.20-5.40); White Blood Count 9.6 K/mm3 (4.8-10.8)
[2025-05-29 14:12] LABS: Alanine Aminotransferase 22 U/L (6-35); Albumin Level 4.3 g/dL (3.5-5.1); Alkaline Phosphatase 80 U/L (38-126); Anion Gap 8 mmol/L (4-12); Aspartate Amino Transferase 36 U/L (14-36); Bilirubin,Total 0.7 mg/dL (0.2-1.3); Blood Urea Nitrogen 24 mg/dL (7-17); Calcium 9.4 mg/dL (8.4-10.2); Carbon Dioxide 27 mmol/L (22-30); Chloride 105 mmol/L (98-107); Estimated CRCL calculation 71 ml/min; Estimated Glomerular Filt Rate 55; Glucose 87 mg/dL (65-110); Magnesium 2.2 mg/dL (1.6-2.3); Osmolality Calculated 293 mOsm/kg (285-295); Potassium 3.8 mmol/L (3.4-5.0); Sodium 140 mmol/L (137-145); Total Protein 7.8 g/dL (6.3-8.2)
[2025-05-29] MEDS: HYDROcodone/acetaminophen (*CRX) 5-325 MG TABLET 1 TAB PO (16:08)
[2025-05-29] MEDS: MORPHINE SULFATE (*CRX) 4 MG/ML INJ 2 MG IV PUSH (20:09)
[2025-05-29] MEDS: SENNA/DOCUSATE SODIUM TABLET 1 TAB PO (20:09)
[2025-05-30] VITALS: BP 144/69; PULSE 84; RESP 18; TEMP 36.7; O2SAT 95
[2025-05-30] MEDS: HYDROcodone/acetaminophen (*CRX) 5-325 MG TABLET 1 TAB PO ×2 (01:09→08:27)
[2025-05-30] MEDS: MORPHINE SULFATE (*CRX) 4 MG/ML INJ 2 MG IV PUSH (05:25)
[2025-05-30 05:44] LABS: Hematocrit 40.7 % (35.0-42.0); Hemoglobin 12.8 g/dL (11.7-13.8); Mean Corpuscular HGB Conc 31.4 g/dL (32-36); Mean Corpuscular Hemoglobin 29.0 pg (27.0-31.0); Mean Corpuscular Volume 92.3 fL (78.0-102.0); Platelet Count Result 280 K/mm3 (150-420); Red Blood Count 4.41 M/mm3 (4.20-5.40); White Blood Count 6.4 K/mm3 (4.8-10.8)
[2025-05-30 06:03] LABS: Alanine Aminotransferase 24 U/L (6-35); Albumin Level 3.9 g/dL (3.5-5.1); Alkaline Phosphatase 76 U/L (38-126); Anion Gap 6 mmol/L (4-12); Aspartate Amino Transferase 37 U/L (14-36); Bilirubin,Total 0.8 mg/dL (0.2-1.3); Blood Urea Nitrogen 22 mg/dL (7-17); Calcium 9.2 mg/dL (8.4-10.2); Carbon Dioxide 30 mmol/L (22-30); Chloride 103 mmol/L (98-107); Estimated CRCL calculation 72 ml/min; Estimated Glomerular Filt Rate 55; Glucose 99 mg/dL (65-110); Magnesium 2.2 mg/dL (1.6-2.3); Osmolality Calculated 291 mOsm/kg (285-295); Potassium 4.8 mmol/L (3.4-5.0); Sodium 139 mmol/L (137-145); Total Protein 6.9 g/dL (6.3-8.2)
[2025-05-30 08:00] VITALS: BP 155/88; PULSE 61; RESP 20; TEMP 36.2; O2SAT 97
[2025-05-30] MEDS: ONDANSETRON INJ 4 MG/2 ML VIAL IV PUSH ×3 (08:02→21:40)
[2025-05-30] MEDS: ENOXAPARIN 40 MG/0.4 ML SYRINGE SUB-Q (08:27)
[2025-05-30] MEDS: CHOLECALCIFEROL (VITAMIN D3) 25 MCG (1,000 UNITS) TABLET 50 MCG PO (08:27)
[2025-05-30] MEDS: ASPIRIN 81 MG CHEWABLE TABLET PO (08:29)
[2025-05-30] MEDS: FLUTICASONE/UMECLIDIN/VILANTER 100-62.5-25 MCG ELLIPTA 1 PUFF INHALATION (08:30)
[2025-05-30] MEDS: LIDOCAINE 5% PATCH 1 PATCH TRANSDERM (08:31)
--- NOTE | 2025-05-30 11:04 | P.HP_ITS ---
H&P: HPI History of Present Illness Date/Time: 05/30/25 11:04 Chief Complaint: Fall with trauma/Pain Narrative: Patient is a 70-year-old female who presented to the emergency department after she had a moment of incontinence with urine and slipped on it landing on her back with immediate pain. Patient came to the emergency room for further evaluation was unstable and inability to ambulate due to severe pain. Patient reports she had no loss of sensation she did not lose consciousness and no loss of urine or stool. Upon arrival to the emergency room patient had a 10/10 pain. Patient reports past medical history of asthma, COPD, KATIE, cardiomyopathy, GERD, HLD, HTN. In the ED: trauma imaging showed a L1 endplate fracture at which time ER did report a spoke to trauma service which time recommended admission for pain management physical therapy T SL 0 brace surgical indication at this time. Patient was seen following day still moderate pain worse movement also stated she was nauseous from the IV morphine which I discontinued at this time. patient lives home alone and reports the pain is too severe to care for herself has agreed to admission to swing bed for continued pain management and physical and occupational therapy. patient denied any chest pain, shortness a breath, dizziness visual changes or paraesthesias. Review of Systems Review of Systems: All systems reviewed & are unremarkable except as noted in HPI and below PMFSH Past Medical History Medical History (Updated 05/30/25 @ 11:16 by Alexandra Benites APRN) Asthma Near syncope Chest congestion Cough Calcaneal fracture Flank pain Constipation Asthma exacerbation, mild Asthma exacerbation Bronchitis Right ankle pain Right foot pain ITB syndrome Chronic pain Depression KATIE (obstructive sleep apnea) Cardiomyopathy Internal derangement of right knee GERD (gastroesophageal reflux disease) Uterine cancer Hyperlipidemia Hypertension Surgical History Surgical History History of heart artery stent [address] Vazquez/SHELIA Larios History of cholecystectomy 2013 History of tonsillectomy 1961 History of appendectomy 1961 History of total abdominal hysterectomy Family History Family History Father AA (aortic aneurysm) Mother Acute myocardial infarction Sibling COPD (chronic obstructive pulmonary disease) Hypertension Thyroid activity decreased Other Aneurysm Arthritis Asthma Brain tumor Carcinoma of colon Diabetes mellitus Heart disease Hyperlipidemia Neuropathy Skin cancer Social History Social History Smoking status: Never smoker Second hand tobacco smoke exposure: Yes Alcohol intake: never Substance use: never Substance use type: does not use Do You Feel Safe in your Home?: Yes Lack of Transportation: No Lack of Food: Never True Current Housing: I Have Housing Concerned About Future Housing: No Difficulty Paying Gas/Electric Bills: No Difficulty Paying for Meds: No Currently Unemployed: No Education: Associate Degree Difficulty w/ Childcare or Family Care: No Living arrangements: alone Occupation/Education: retired Additional occupation/education comments: [employer] Gender identity (if verbalized by the patient): Female Spiritual care concerns: No Meds Home Medications and Allergies Home Medications ?Medication ?Instructions ?Recorded ?Confirmed ?Type bempedoic acid 180 mg-ezetimibe 10 1 tablet PO DAILY 0 04/22/22 05/29/25 History mg tablet (Nexlizet) cholecalciferol (vitamin D3) 50 50 mcg PO DAILY 05/29/25 History mcg (2,000 unit) capsule aspirin 81 mg chewable tablet 81 mg PO DAILY 06/16/22 05/29/25 History carvedilol 3.125 mg tablet 6.25 mg PO Q12H 05/15/23 History albuterol sulfate 90 mcg/actuation 1 - 2 puff inhalati on Q4-6H PRN 09/27/24 05/29/25 Rx aerosol inhaler shortness of breath or wheez ing #8.5 grams fluticasone propionate 50 1 spray intranasal DAILY #18 .2 mL 10/04/24 05/29/25 Rx mcg/actuation nasal spray,suspension (Flonase Allergy Relief) albuterol sulfate 2.5 mg/0.5 mL 2.5 mg (0.5 mL) inhala tion Q20M 10/12/24 05/29/25 Rx solution for nebulization PRN shortness of breath or wheezing #30 ea albuterol sulfate 0.63 mg/3 mL 0.63 mg (3 mL) inhalati on Q4-6H 10/13/24 05/29/25 Rx solution for nebulization PRN shortness of breath or wheezing #75 mL levalbuterol tartrate 45 2 inh inhalation Q6H #15 gra ms 10/19/24 05/29/25 Rx mcg/actuation aerosol inhaler (Xopenex HFA) budesonide 160 mcg-glycopyr 9 2 inh inhalation BID #32 .1 grams 05/12/25 05/29/25 Rx mcg-formot 4.8 mcg/actuation HFA inhaler (Breztri Aerosphere) Allergies Allergy/AdvReac Type Severity Reaction Status Date / Time atorvastatin Allergy Unknown Verified 05/29/25 08:14 chlorthalidone Allergy Unknown Verified 05/29/25 08:14 latex Allergy Rash Verified 05/29/25 08:14 losartan Allergy Unknown Verified 05/29/25 08:14 valsartan Allergy Unknown Verified 05/29/25 08:14 Uoptftb-MPE-TdD Reductase AdvReac Intermediate Muscle Pain Verified 05/29/25 08:14 Inhibitor Macrolide Antibiotics AdvReac Rash Verified 05/29/25 08:14 Penicillins AdvReac Rash Verified 05/29/25 08:14 Quinolones AdvReac Rash Verified 05/29/25 08:14 Sulfa (Sulfonamide AdvReac Rash Verified 05/29/25 08:14 Antibiotics) Vital Signs Vital Signs - 24 hr 05/29/25 11:54 05/29/25 11:55 05/29/25 12:00 Temperature 97.7 F Pulse Rate 66 Respiratory Rate 18 Blood Pressure 161/69 H Pulse Oximetry 99 100 99 Oxygen Delivery Room Air 05/29/25 12:15 05/29/25 12:30 05/29/25 13:27 Temperature 98 F Pulse Rate 60 Respiratory Rate 18 Blood Pressure 166/77 H Pulse Oximetry 97 98 98 Oxygen Delivery Room Air Room Air 05/29/25 16:18 05/29/25 20:00 05/29/25 20:09 Temperature Pulse Rate 71 84 84 Respiratory Rate 18 18 Blood Pressure 148/68 H Pulse Oximetry 99 99 Oxygen Delivery Room Air Room Air 05/30/25 00:00 05/30/25 08:00 Temperature 98.1 F 97.1 F L Pulse Rate 84 61 Respiratory Rate 18 20 Blood Pressure 144/69 H 155/88 H Pulse Oximetry 95 97 Oxygen Delivery Room Air Room Air Exam Const: General: no acute distress and uncomfortable HENMT: Mouth: Yes moist mucous membranes Eyes: General: appearance normal, both eyes and all related structures Pupils: Equal, round and reactive pupils present Neck: Neck: supple and no JVD Resp: Effort & Inspection: normal respiratory effort Auscultation: clear to auscultation bilaterally Cardio: Rate: regular rate Rhythm: regular rhythm GI: GI Palp: Yes Soft to palpation Auscultation: normal bowel sounds Skin: General skin exam: normal color and no rashes or lesions noted Wounds: no wounds Neuro: Speech: normal speech Sensory Exam: normal sensation Other: unsteady gait will need evaluated by Physical therapy due to severe pain pending TSLO brace Extrem: General: normal to inspection Psych: Mental Status: mental status grossly normal Affect: normal affect H&P: Results Labs Labs: Short CBC 05/29/25 05/30/25 Range/Units 13:55 05:36 WBC 9.6 6.4 (4.8-10.8) K/mm3 Hgb 13.3 12.8 (11.7-13.8) g/dL Hct 41.7 40.7 (35.0-42.0) % Plt Count 290 280 (150-420) K/mm3 BMP 05/29/25 05/30/25 13:55 05:36 Sodium 140 139 Potassium 3.8 4.8 Chloride 105 103 Carbon Dioxide 27 30 BUN 24 H 22 H Creatinine 1.00 0.99 Glucose 87 99 Calcium 9.4 9.2 Liver Function 05/29/25 05/30/25 Range/Units 13:55 05:36 Total Bilirubin 0.7 0.8 (0.2-1.3) mg/dL AST 36 37 H (14-36) U/L ALT 22 24 (6-35) U/L Alkaline Phosphatase 80 76 (38-126) U/L Albumin 4.3 3.9 (3.5-5.1) g/dL Assessment and Plan Assessment and plan (1) Fracture of lumbar spine: Qualifiers: Encounter type: initial encounter Fracture morphology: other fracture Fracture type: closed Lumbar vertebra fracture level: L1 Qualified Code(s): S32.018A - Other fracture of first lumbar vertebra, initial encounter for closed fracture Code(s): S32.009A - Unspecified fracture of unspecified lumbar vertebra, initial encounter for closed fracture Status: Acute Assessment and Plan: lumbar spine showing L1 endplate fracture * pain management with scheduled Percocet q.6 hours IV push Dilaudid 0.5 q.3 hours for breakthrough pain * lidocaine patch * PT/OT * TSLO brace with ambulation * bowel regimen due to narcotic use with senna and MiraLax * encourage oral hydration and activity * plan to discharge to swing bed for continued physical and occupational therapy with pain management (2) Hypertension: Qualifiers: Hypertension type: primary hypertension Qualified Code(s): I10 - Essential (primary) hypertension Code(s): I10 - Essential (primary) hypertension Status: Acute Assessment and Plan: * continued patient's carvedilol * monitor BP per unit protocol (3) GERD (gastroesophageal reflux disease): Code(s): K21.9 - Gastro-esophageal reflux disease without esophagitis Status: Acute Assessment and Plan: * pantoprazole daily (4) Asthma: Code(s): J45.909 - Unspecified asthma, uncomplicated Status: Acute Assessment and Plan: * continue patient's p.r.n. inhalers * oxygen p.r.n. if needed to maintain 92% * incentive spirometer Plan Code status: Full code per patient DVT prophylaxis: Lovenox Stress ulcer prophylaxis: Protonix 40 daily PT/OT notes: PT/ OT plan for discharge to swing bed Disposition: patient continues admission to the medical unit for pain management after L1 endplate fracture consult to physical and occupational therapy plan to transition to swing bed once insurance authorization received. Quality VTE Prophylaxis VTE prophylaxis: pharmacologic ordered -Patient's previous records reviewed on admission -ER notes reviewed in detail on admission -discussed all findings and current treatment plan with patient/Family/POA -Consultations reviewed for recommendations -Patient's disposition for safe discharge discussed with correctional case manager -radiology imaging, EKG and test results I have personally reviewed and interpreted unless otherwise specified Dictation performed by [employer] direct speech recognition software, therefore training engineer variants and typographical errors may occur. Hospitalist MIPS Advance Care Plan I have confirmed that the patient's Advanced Care Plan is present, code status is documented, or surrogate decision maker is listed in patient medical record.: Yes Medication Reconciliation I have utilized all available resources to obtain, update and review the patients current medications (includes all prescriptions, OTC, herbals, cannabis, and nutritional supplements).: Yes The patient is not eligible for med reconciliation; the patient is in a emergent medical situation where delaying treatment would jeopardize the patients health.: No
[2025-05-30] MEDS: oxyCODONE/ACETAMINOPHEN (*CRX) 5-325 MG TABLET 1 TABLET PO ×3 (11:26→23:52)
[2025-05-30 14:56] VITALS: BP 151/79; PULSE 60; RESP 18; O2SAT 95
[2025-05-30 16:00] VITALS: BP 139/67; PULSE 62; RESP 18; TEMP 36.1; O2SAT 98
[2025-05-30 20:37] VITALS: PULSE 64
[2025-05-30] MEDS: SENNA/DOCUSATE SODIUM TABLET 1 TAB PO (20:39)
[2025-05-31] VITALS: BP 158/75; PULSE 64; RESP 18; TEMP 37.1; O2SAT 97
[2025-05-31] MEDS: oxyCODONE/ACETAMINOPHEN (*CRX) 5-325 MG TABLET 1 TABLET PO (05:52)
[2025-05-31 05:55] LABS: Hematocrit 39.5 % (35.0-42.0); Hemoglobin 12.6 g/dL (11.7-13.8); Mean Corpuscular HGB Conc 31.9 g/dL (32-36); Mean Corpuscular Hemoglobin 29.3 pg (27.0-31.0); Mean Corpuscular Volume 91.9 fL (78.0-102.0); Platelet Count Result 273 K/mm3 (150-420); Red Blood Count 4.30 M/mm3 (4.20-5.40); White Blood Count 6.7 K/mm3 (4.8-10.8)
[2025-05-31 06:08] LABS: Alanine Aminotransferase 31 U/L (6-35); Albumin Level 3.6 g/dL (3.5-5.1); Alkaline Phosphatase 71 U/L (38-126); Anion Gap 5 mmol/L (4-12); Aspartate Amino Transferase 38 U/L (14-36); Bilirubin,Total 0.6 mg/dL (0.2-1.3); Blood Urea Nitrogen 16 mg/dL (7-17); Calcium 9.2 mg/dL (8.4-10.2); Carbon Dioxide 29 mmol/L (22-30); Chloride 104 mmol/L (98-107); Estimated CRCL calculation 74 ml/min; Estimated Glomerular Filt Rate 57; Glucose 98 mg/dL (65-110); Magnesium 2.2 mg/dL (1.6-2.3); Osmolality Calculated 287 mOsm/kg (285-295); Potassium 4.8 mmol/L (3.4-5.0); Sodium 138 mmol/L (137-145); Total Protein 6.0 g/dL (6.3-8.2)
[2025-05-31 08:00] VITALS: BP 142/58; PULSE 58; RESP 20; TEMP 36.6; O2SAT 94
[2025-05-31] MEDS: FLUTICASONE/UMECLIDIN/VILANTER 100-62.5-25 MCG ELLIPTA 1 PUFF INHALATION (10:21)
[2025-05-31] MEDS: MAGNESIUM HYDROXIDE SUSP 30 ML UDC PO (10:21)
[2025-05-31] MEDS: CHOLECALCIFEROL (VITAMIN D3) 25 MCG (1,000 UNITS) TABLET 50 MCG PO (10:21)
[2025-05-31 10:22] VITALS: PULSE 72
[2025-05-31] MEDS: PANTOPRAZOLE 40 MG TABLET PO (10:22)
[2025-05-31] MEDS: SENNA/DOCUSATE SODIUM TABLET 1 TAB PO (10:22)
[2025-05-31] MEDS: ASPIRIN 81 MG CHEWABLE TABLET PO (10:23)
[2025-05-31] MEDS: LIDOCAINE 5% PATCH 1 PATCH TRANSDERM (10:23)
[2025-05-31] MEDS: BISACODYL 10 MG SUPPOSITORY RECTAL (10:23)
[2025-05-31] MEDS: ENOXAPARIN 40 MG/0.4 ML SYRINGE SUB-Q (10:37)
--- NOTE | 2025-05-31 10:44 | P.DS_ITS ---
DS: Admitting Diagnosis Discharge Date 05/31/2025 Admitting Diagnosis L1 endplate fracture DS: Discharge Diagnosis Discharge Diagnosis (1) Fracture of lumbar spine: Qualifiers: Encounter type: initial encounter Fracture morphology: other fracture Fracture type: closed Lumbar vertebra fracture level: L1 Qualified Code(s): S32.018A - Other fracture of first lumbar vertebra, initial encounter for closed fracture Code(s): S32.009A - Unspecified fracture of unspecified lumbar vertebra, initial encounter for closed fracture Status: Acute Assessment and Plan: lumbar spine showing L1 endplate fracture * pain management with scheduled Percocet q.6 hours IV push Dilaudid 0.5 q.3 hours for breakthrough pain * lidocaine patch * PT/OT * TSLO brace with ambulation * bowel regimen due to narcotic use with senna and MiraLax * encourage oral hydration and activity * discharge to swing bed for continued physical and occupational therapy with pain management (2) Hypertension: Qualifiers: Hypertension type: primary hypertension Qualified Code(s): I10 - Essential (primary) hypertension Code(s): I10 - Essential (primary) hypertension Status: Acute Assessment and Plan: * continued patient's carvedilol * monitor BP per unit protocol (3) GERD (gastroesophageal reflux disease): Code(s): K21.9 - Gastro-esophageal reflux disease without esophagitis Status: Acute Assessment and Plan: * pantoprazole daily (4) Asthma: Code(s): J45.909 - Unspecified asthma, uncomplicated Status: Acute Assessment and Plan: * continue patient's p.r.n. inhalers * oxygen p.r.n. if needed to maintain 92% * incentive spirometer DS: Summary Hospital Course Reason for hospitalization: back pain Hospital Course: Patient is a 70 year old female that was admitted to [facility] after a fall at home. CT lumbar spine showed a L1 endplate fracture. ED doctor spoke to trauma service who recommended conservative management. Patient was recommended to wear a TSLO brace and the patient refused. Patients pain was controlled. and she was discharged to [facility] for a swing bed. Patient was recommended to have PT/OT at rehab after dsicahrge. Patient denies acute pain. Patient denies other acute complaints. Medications reviewed. Patient admitted to [facility] for swing. Time Spent with Patient Time attestation: Total time spent providing and/or coordinating discharge services: 40 Minutes Exam Const: General: no acute distress and uncomfortable HENMT: Mouth: Yes moist mucous membranes Eyes: General: appearance normal, both eyes and all related structures Pupils: Equal, round and reactive pupils present Neck: Neck: supple and no JVD Resp: Effort & Inspection: normal respiratory effort Auscultation: clear to auscultation bilaterally Cardio: Rate: regular rate Rhythm: regular rhythm GI: Auscultation: normal bowel sounds Skin: General skin exam: normal color and no rashes or lesions noted Wounds: no wounds Neuro: Cranial nerves: Yes Equal, round and reactive pupils present Speech: normal speech Sensory Exam: normal sensation Other: unsteady gait will need evaluated by Physical therapy due to severe pain pen ding TSLO brace Extrem: General: normal to inspection Psych: Mental Status: mental status grossly normal Affect: normal affect DS: Data Data Completed and Pending Labs on day of discharge: Labs from last 24 hours 05/31/25 05:36 WBC 6.7 RBC 4.30 Hgb 12.6 Hct 39.5 MCV 91.9 MCH 29.3 MCHC 31.9 L RDW 12.7 Plt Count 273 MPV 8.8 L Sodium 138 Potassium 4.8 Chloride 104 Carbon Dioxide 29 Anion Gap 5 BUN 16 Creatinine 0.96 Estim Creat Clear Calc 74 Estimated GFR 57 L Glucose 98 Calculated Osmolality 287 Calcium 9.2 Magnesium 2.2 Total Bilirubin 0.6 AST 38 H ALT 31 Alkaline Phosphatase 71 Total Protein 6.0 L Albumin 3.6 Discharge Plan Discharge Attending physician on discharge: Ham Russell Consulting providers: Alexandra Benites; Daisha Blandon; Everardo Way; Cesar Daniel Discharging Clinician: Daisha Blandon Patient Disposition: Hospital Swing Bed [facility] Activity: as tolerated Diet: heart healthy Discharge Instructions: TSLO Brace recommended per Trauma surgery that ER doctor spoke with Patient Instructions: Antibiotic Form Patient Language: Greenlandic Stand Alone Forms: General Discharge Information Date of admission: 05/29/25 12:06 Primary Care Provider: Cresencio Weber Admitting Provider: Ham Russell Attending physician on admission: Ham Russell Condition: Stable Quality VTE Prophylaxis VTE prophylaxis: pharmacologic ordered
--- NOTE | 2025-05-31 11:03 | PC.NURSE ---
no luck with bm. into bed after mom given and suppository given
--- NOTE | 2025-05-31 11:55 | PC.NURSE ---
dc from [facility] and transfered to [facility] for rehab.
== END 2025-05-31 11:55 | disposition swing bed (61) ==
LOC: CHSED 12:02 → CHS2ND 12:12
PROVIDERS: Nurse Practitioner Family; Admitting Provider Internal Medicine; Emergency Provider Emergency Medicine; PCP Family Medicine; Visit Provider Internal Medicine
DX: S32.018A Other fracture of first lumbar vertebra, initial encounter for closed fracture (principal); M25.552 Pain in left hip; M79.671 Pain in right foot; W01.0XXA Fall on same level from slipping, tripping and stumbling without subsequent striking against object, initial encounter; M48.061 Spinal stenosis, lumbar region without neurogenic claudication; S90.451A Superficial foreign body, right great toe, initial encounter; I10 Essential (primary) hypertension; K21.9 Gastro-esophageal reflux disease without esophagitis; E78.5 Hyperlipidemia, unspecified; J45.909 Unspecified asthma, uncomplicated; Z23 Encounter for immunization; Z79.82 Long term (current) use of aspirin; G89.29 Other chronic pain; I42.9 Cardiomyopathy, unspecified; Z95.5 Presence of coronary angioplasty implant and graft; Z85.42 Personal history of malignant neoplasm of other parts of uterus; G47.33 Obstructive sleep apnea (adult) (pediatric); Z90.49 Acquired absence of other specified parts of digestive tract; Z90.710 Acquired absence of both cervix and uterus; M23.91 Unspecified internal derangement of right knee; Z82.49 Family history of ischemic heart disease and other diseases of the circulatory system; Z82.61 Family history of arthritis; Z82.5 Family history of asthma and other chronic lower respiratory diseases; Z80.8 Family history of malignant neoplasm of other organs or systems; Z80.0 Family history of malignant neoplasm of digestive organs
CPT/HCPCS: 36415; 72100; 72131; 73502; 73630; 80053; 83735; 85025; 85027; 90471; 90715; 96372; 96374; 96375; 96376; 97161; 97165; 97530; 99285; A9270; G0378; J1650; J2270; J2405

== ENCOUNTER 2025-05-31 11:56 | Inpatient (IN) | payer MEDICARE, SELFPAY ==
--- OUTSIDE RECORDS SUMMARY | 2025-05-31 12:21 | XMS_ITS | Patient Health Record ---
Author Organization [facility] Address [address] [address] Care Team Providers Care Deck And Hull Assembler Name Role Phone MIKKI ROUSE Primary Care [...] Date Coverage End Date [facility] [address] [place] [address] [id number] [facility] Self - patient is the insured 2 Medical (General) History Medical History History ICD Code Problems: Sinus Problems: Active Bronchitis HTN Arthritis Asthma Uterine cancer Heart disease Sleep apnea Surgical History Surgery Date(Month/Year) Gallbladder 2018 Tonsils 196 Hysterectomy estab Hospitalization History Reason Date(Month/Year)
--- OUTSIDE RECORDS SUMMARY | 2025-05-31 12:21 | XMS_ITS | Clinical Summary ---
[facility] Organization [facility] Address [address] [place] [id number] Care Team Providers Care Tool And Fixture Repairer Name Role Phone Cresencio Weber MD Primary Care Provider [phone] Allergies Active Allergy Reactions Criticality Noted Date [...] 11/06/2022 Assessment & Plan (07/05/2024 11:03 AM TRANSPORTATION CONSULTANT): On Nexlizet, LDL above goal at 88. [...] day Assessment & Plan (07/05/2024 11:01 AM TRANSPORTATION CONSULTANT): Unchanged EF, 38%. Unable to tolerate Entresto, [...] - continue carvedilol 6.25 b.i.d. - discussed CURTAIN CUTTER HAND but declines - continue cardiac rehab - will repeat echo at six-month follow-up to reassess ejection fraction; if it is stable or reduced from prior then will advocate to her again to retry spironolactone Assessment & Plan (11/06/2022 10:20 PM TRANSPORTATION CONSULTANT): Primarily nonischemic cardiomyopathy though with coexisting single-vessel [...] also discussed in depth likely benefit of CURTAIN CUTTER HAND D given her persistently low ejection fraction and wide left bundle branch block however she adamantly declines. - increase carvedilol back to 6.25 b.i.d. - continue cardiac rehab Assessment & Plan (08/06/2022 4:53 PM TRANSPORTATION CONSULTANT): Primarily nonischemic cardiomyopathy though with coexisting single-vessel [...] tolerated. She would be a candidate for CURTAIN CUTTER HAND D given her left bundle branch block [...] 6 weeks Coronary artery disease invo lving [place] coronary artery of [place] heart without angina pectoris 06/03/2022 Assessment & Plan (01/08/2025 3:14 PM CDT): History of mid LAD PCI and remains free of angina. -- continue aspirin and Nexlizet, carvedilol Assessment & Plan (07/05/2024 11:02 AM TRANSPORTATION CONSULTANT): Denying any complaints of angina. Continue beta-santana, aspirin, and Nexlizet Assessment & Plan (12/07/2023 2:47 PM CDT): History of mid LAD PCI and remains free of angina. - continue aspirin and Nexlizet, carvedilol Assessment & Plan (05/12/2023 1:12 PM CDT): History of mid LAD PCI and remains free of angina. - continue aspirin and Nexlizet, carvedilol Assessment & Plan (11/06/2022 10:18 PM TRANSPORTATION CONSULTANT): History of mid LAD PCI and remains free of angina. She reports history of diffuse myalgias and joint pain prompting discontinuation of multiple different statin agents and therefore is on Nexlizet which she seems to be tolerating. - continue aspirin and Nexlizet, carvedilol Assessment & Plan (08/06/2022 4:54 PM TRANSPORTATION CONSULTANT): History of mid LAD PCI and remains [...] Type Department Care Team Description 05/23/2025 Telephone [facility] Cardiology [address] [place] [address] [address], [place] [address] Karthikeyan Cotton MD 05/16/2025 Telephone [facility] Cardiology [address] [place] [address] [address], [place] [address] Karthikeyan Cotton MD Test Results 05/08/2025 Telephone [facility] Cardiology [address] [place] [address] [address], [place] [address] Karthikeyan Cotton MD from Last 3 Months [...] 36.4 C (97.5 F) 07/11/2024 1:08 PM TRANSPORTATION CONSULTANT Respiratory Rate 16 07/11/2024 1:08 PM TRANSPORTATION CONSULTANT Oxygen Saturation 96% 01/09/2025 9:56 AM CDT [...] 65+ 2019 Influenza Vaccine (#1) 2025 Insurance [facility] [employer] [facility] [place] [facility] [employer] Address: [address] [address] [place] [address] [facility] ADVANTAGE [facility] [place] [facility] [facility] Address: [address] [place] [id number] Care Teams Tool And Fixture Repairer Relationship Specialty Start Date End Date Cresencio Weber MD PCP - General Family Medicine 11/05/22
[2025-05-31 13:14] VITALS: BMI 41.9
[2025-05-31 13:47] VITALS: BP 142/58; PULSE 60; RESP 20; TEMP 36.1; O2SAT 93
--- OUTSIDE RECORDS SUMMARY | 2025-05-31 14:31 | XMS_ITS | Clinical Summary ---
[facility] Organization [facility] Address [address] [place] [id number] Care Team Providers Care Consumer Loan Specialist Name Role Phone Cresencio Weber MD Primary Care Provider [phone] Allergies Active Allergy Reactions Criticality Noted Date [...] 11/06/2022 Assessment & Plan (07/05/2024 11:03 AM GOLF CADDY): On Nexlizet, LDL above goal at 88. [...] day Assessment & Plan (07/05/2024 11:01 AM GOLF CADDY): Unchanged EF, 38%. Unable to tolerate Entresto, [...] - continue carvedilol 6.25 b.i.d. - discussed COMPUTER TEACHER but declines - continue cardiac rehab - will repeat echo at six-month follow-up to reassess ejection fraction; if it is stable or reduced from prior then will advocate to her again to retry spironolactone Assessment & Plan (11/06/2022 10:20 PM GOLF CADDY): Primarily nonischemic cardiomyopathy though with coexisting single-vessel [...] also discussed in depth likely benefit of COMPUTER TEACHER D given her persistently low ejection fraction and wide left bundle branch block however she adamantly declines. - increase carvedilol back to 6.25 b.i.d. - continue cardiac rehab Assessment & Plan (08/06/2022 4:53 PM GOLF CADDY): Primarily nonischemic cardiomyopathy though with coexisting single-vessel [...] tolerated. She would be a candidate for COMPUTER TEACHER D given her left bundle branch block [...] 6 weeks Coronary artery disease invo lving [place] coronary artery of [place] heart without angina pectoris 06/03/2022 Assessment & Plan (01/08/2025 3:14 PM CDT): History of mid LAD PCI and remains free of angina. -- continue aspirin and Nexlizet, carvedilol Assessment & Plan (07/05/2024 11:02 AM GOLF CADDY): Denying any complaints of angina. Continue beta-santana, aspirin, and Nexlizet Assessment & Plan (12/07/2023 2:47 PM CDT): History of mid LAD PCI and remains free of angina. - continue aspirin and Nexlizet, carvedilol Assessment & Plan (05/12/2023 1:12 PM CDT): History of mid LAD PCI and remains free of angina. - continue aspirin and Nexlizet, carvedilol Assessment & Plan (11/06/2022 10:18 PM GOLF CADDY): History of mid LAD PCI and remains free of angina. She reports history of diffuse myalgias and joint pain prompting discontinuation of multiple different statin agents and therefore is on Nexlizet which she seems to be tolerating. - continue aspirin and Nexlizet, carvedilol Assessment & Plan (08/06/2022 4:54 PM GOLF CADDY): History of mid LAD PCI and remains [...] Type Department Care Team Description 05/23/2025 Telephone [facility] Cardiology [address] [place] [address] [address], [place] [address] Karthikeyan Cotton MD 05/16/2025 Telephone [facility] Cardiology [address] [place] [address] [address], [place] [address] Karthikeyan Cotton MD Test Results 05/08/2025 Telephone [facility] Cardiology [address] [place] [address] [address], [place] [address] Karthikeyan Cotton MD from Last 3 Months [...] 36.4 C (97.5 F) 07/11/2024 1:08 PM GOLF CADDY Respiratory Rate 16 07/11/2024 1:08 PM GOLF CADDY Oxygen Saturation 96% 01/09/2025 9:56 AM CDT [...] 65+ 2019 Influenza Vaccine (#1) 2025 Insurance [facility] MEDIC[facility] ADVANTAGE [facility] MEDICARE ADVANTAGE [facility] MEDICARE ADVANTAGE Care Teams Consumer Loan Specialist Relationship Specialty Start Date End Date Cresencio Weber MD PCP - General Family Medicine 11/05/22
--- NOTE | 2025-05-31 14:49 | PC.NURSE ---
has had no results from supp but sm flecks of stools. upset with son.
[2025-05-31 16:00] VITALS: BP 156/69; PULSE 64; RESP 18; TEMP 36.7; O2SAT 95
[2025-05-31] MEDS: FAMOTIDINE 20 MG TABLET PO (16:20)
[2025-05-31] MEDS: SENNA/DOCUSATE SODIUM TABLET 1 TAB PO (16:20)
[2025-05-31 20:51] VITALS: PULSE 62
[2025-05-31] MEDS: oxyCODONE/ACETAMINOPHEN (*CRX) 5-325 MG TABLET 1 TABLET PO (20:53)
[2025-06-01] VITALS (7 sets, daily range): BP systolic 145–152; BP diastolic 74–76; PULSE 57–65; RESP 16–18; TEMP 36–36.8; O2SAT 94–99
[2025-06-01] MEDS: oxyCODONE/ACETAMINOPHEN (*CRX) 5-325 MG TABLET 1 TABLET PO ×2 (04:47→21:07)
[2025-06-01] MEDS: MAGNESIUM HYDROXIDE SUSP 30 ML UDC PO (08:18)
[2025-06-01] MEDS: FLUTICASONE/UMECLIDIN/VILANTER 100-62.5-25 MCG ELLIPTA 1 PUFF INHALATION (08:19)
[2025-06-01] MEDS: [UNRECOGNIZED DRUG - OTHER] 1 EACH PO (08:21)
[2025-06-01] MEDS: ACETAMINOPHEN 325 MG TABLET 650 MG PO ×3 (08:22→18:38)
[2025-06-01] MEDS: FAMOTIDINE 20 MG TABLET PO ×2 (08:24→17:41)
[2025-06-01] MEDS: ASPIRIN 81 MG CHEWABLE TABLET PO (08:24)
[2025-06-01] MEDS: SENNA/DOCUSATE SODIUM TABLET 1 TAB PO ×2 (08:24→17:41)
[2025-06-01] MEDS: CHOLECALCIFEROL (VITAMIN D3) 25 MCG (1,000 UNITS) TABLET 50 MCG PO (08:24)
[2025-06-01] MEDS: LIDOCAINE 5% PATCH 1 PATCH TRANSDERM (08:25)
--- NOTE | 2025-06-01 08:37 | PM.IMHP ---
H&P: HPI History of Present Illness Date/Time: 06/01/25 08:37 Chief Complaint: back pain Narrative: Patient is a 70 year old female with PMH of asthma, COPD, KATIE, cardiomyopathy, GERD, HLD and HTN. Patient was admitted to [facility] on 05/30/2025 after a fall at home. Patient landed on her back and had immediate pain. Patients imaging showed an acute L1 endplate fracture. The ER MD spoke with trauma services at [facility] and it was recommended to admit patient for pain control, PT and a TSLO brace. Patient was evaluated by PT and OT and it was recommended for patient to receive additional rehab before returning home alone. Patient's pain was controlled with PRN Percocet, scheduled methocarbamol and PRN Tylenol. Patient refused to wear the TSLO brace and understands that this was recommended by the trauma surgeon. Patient seen in her room, lying in bed, in no acute distress. Patient denies acute complaints. Patient with complaints of constipation, orders placed for nursing staff. Patient will be admitted to [facility] in a swing bed for inpatient rehabilitation. Plan will be for patient to return home on discharge. Review of Systems Review of Systems: All systems reviewed & are unremarkable except as noted in HPI and below PMFSH Past Medical History Medical History (Updated 05/30/25 @ 11:16 by Alexandra Benites APRN) Asthma Near syncope Chest congestion Cough Calcaneal fracture Flank pain Constipation Asthma exacerbation, mild Asthma exacerbation Bronchitis Right ankle pain Right foot pain ITB syndrome Chronic pain Depression KATIE (obstructive sleep apnea) Cardiomyopathy Internal derangement of right knee GERD (gastroesophageal reflux disease) Uterine cancer Hyperlipidemia Hypertension Surgical History Surgical History History of heart artery stent [address] Vazquez/SHELIA Larios History of cholecystectomy 2013 History of tonsillectomy 1961 History of appendectomy 1961 History of total abdominal hysterectomy Family History Family History Father AA (aortic aneurysm) Mother Acute myocardial infarction Sibling COPD (chronic obstructive pulmonary disease) Hypertension Thyroid activity decreased Other Aneurysm Arthritis Asthma Brain tumor Carcinoma of colon Diabetes mellitus Heart disease Hyperlipidemia Neuropathy Skin cancer Social History Social History Smoking status: Never smoker Second hand tobacco smoke exposure: No Alcohol intake: never Substance use: never Substance use type: does not use Do You Feel Safe in your Home?: Yes Lack of Transportation: No Lack of Food: Never True Current Housing: I Have Housing Concerned About Future Housing: No Difficulty Paying Gas/Electric Bills: No Difficulty Paying for Meds: No Currently Unemployed: No Education: Associate Degree Difficulty w/ Childcare or Family Care: No Living arrangements: alone Occupation/Education: retired Additional occupation/education comments: [employer] Gender identity (if verbalized by the patient): Female Spiritual care concerns: No Meds Home Medications and Allergies Home Medications ?Medication ?Instructions ?Recorded ?Confirmed ?Type bempedoic acid 180 mg-ezetimibe 10 1 tablet PO DAILY 04/22/22 05/31/25 History mg tablet (Nexlizet) cholecalciferol (vitamin D3) 50 50 mcg PO DAILY 06/09/22 05/31/25 History mcg (2,000 unit) capsule aspirin 81 mg chewable tablet 81 mg PO DAILY 06/16/22 05/31/25 History carvedilol 3.125 mg tablet 6.25 mg PO Q12H 05/15/23 05/31/25 History albuterol sulfate 90 mcg/actuation 1 - 2 puff inhalation Q4-6H PRN 09/27/24 05/31/25 Rx aerosol inhaler shortness of breath or wheezing #8.5 grams fluticasone propionate 50 1 spray intranasal DAILY #18.2 mL 10/04/24 05/31/25 Rx mcg/actuation nasal spray,suspension (Flonase Allergy Relief) albuterol sulfate 0.63 mg/3 mL 0.63 mg (3 mL) inhalation Q4-6H 10/13/24 05/31/25 Rx solution for nebulization PRN shortness of breath or wheezing #75 mL levalbuterol tartrate 45 2 inh inhalation Q6H #15 grams 10/19/24 05/31/25 Rx mcg/actuation aerosol inhaler (Xopenex HFA) budesonide 160 mcg-glycopyr 9 2 inh inhalation BID #32.1 grams 05/12/25 05/31/25 Rx mcg-formot 4.8 mcg/actuation HFA inhaler (Breztri Aerosphere) acetaminophen 325 mg tablet 650 mg (2 x 325 mg) PO Q4H PRN 05/31/25 05/31/25 Rx Mild Pain (1-3) Or Fever #30 tabs bisacodyl 10 mg rectal suppository 10 mg RECTAL DAILY PRN 05/31/25 05/31/25 Rx Constipation #30 ea famotidine 20 mg tablet (Pepcid) 20 mg PO BID #30 tabs 05/31/25 05/31/25 Rx lidocaine 5 % topical patch 1 patch transdermal DAILY #30 ea 05/31/25 05/31/25 Rx (Lidoderm) magnesium hydroxide 400 mg/5 mL 30 ml PO DAILY PRN Constipation 05/31/25 05/31/25 Rx oral suspension (Milk of Magnesia) #355 mL oxycodone-acetaminophen 5 mg-325 1 tablet PO Q6H PRN Pain Rated 4-6 05/31/25 05/31/25 Rx mg tablet #15 tabs sennosides 8.6 mg-docusate sodium 1 tab-cap PO BID #60 tabs 05/31/25 05/31/25 Rx 50 mg tablet (Senokot-S) Allergies Allergy/AdvReac Type Severity Reaction Status Date / Time atorvastatin Allergy Unknown Verified 05/29/25 08:14 chlorthalidone Allergy Unknown Verified 05/29/25 08:14 latex Allergy Rash Verified 05/29/25 08:14 losartan Allergy Unknown Verified 05/29/25 08:14 valsartan Allergy Unknown Verified 05/29/25 08:14 [id number] Reductase AdvReac Intermediate Muscle Pain Verified 05/29/25 08:14 Inhibitor Macrolide Antibiotics AdvReac Rash Verified 05/29/25 08:14 Penicillins AdvReac Rash Verified 05/29/25 08:14 Quinolones AdvReac Rash Verified 05/29/25 08:14 Sulfa (Sulfonamide AdvReac Rash Verified 05/29/25 08:14 Antibiotics) Vital Signs Vital Signs - 24 hr 05/31/25 13:47 05/31/25 16:00 05/31/25 20:51 Temperature 97 F L 98.1 F Pulse Rate 60 64 62 Respiratory Rate 20 18 Blood Pressure 142/58 H 156/69 H Pulse Oximetry 93 95 Oxygen Delivery Room Air Room Air 06/01/25 00:00 06/01/25 08:21 Temperature 98.2 F Pulse Rate 62 60 Respiratory Rate 16 Blood Pressure 146/74 H Pulse Oximetry 98 Oxygen Delivery Room Air Exam Const: General: comfortable and no acute distress HENMT: Face/Nose/Sinus: Normal nares present Mouth: Yes moist mucous membranes Eyes: General: appearance normal, both eyes and all related structures Pupils: Equal, round and reactive pupils present Neck: Neck: supple Resp: Effort & Inspection: normal respiratory effort Auscultation: clear to auscultation bilaterally Cardio: Rate: regular rate Rhythm: regular rhythm GI: GI Palp: Yes Soft to palpation Auscultation: normal bowel sounds Skin: General skin exam: normal color and no rashes or lesions noted Extrem: General: normal to inspection Psych: Mental Status: mental status grossly normal Affect: normal affect Assessment and Plan Assessment and plan (1) Fracture of lumbar spine: Qualifiers: Encounter type: initial encounter Fracture morphology: other fracture Fracture type: closed Lumbar vertebra fracture level: L1 Qualified Code(s): S32.018A - Other fracture of first lumbar vertebra, initial encounter for closed fracture Code(s): S32.009A - Unspecified fracture of unspecified lumbar vertebra, initial encounter for closed fracture Status: Acute Assessment and Plan: CT showed L1 endplate fracture ED MD discussed with trauma surgery at [facility] and recommendations was for admission for pain control, PT/OT and TSLO brace with ambulation patient is refusing the TSLO brace pain control with PRN Percocet, scheduled Robaxin and PRN Tylenol Lidocaine patch PT/OT, rehab (2) Fall as cause of accidental injury at home as place of occurrence: Qualifiers: Encounter type: initial encounter Qualified Code(s): W19.XXXA - Unspecified fall, initial encounter; Y92.009 - Unspecified place in unspecified non-institutional (private) residence as the place of occurrence of the external cause Code(s): W19.XXXA - Unspecified fall, initial encounter; Y92.009 - Unspecified place in unspecified non-institutional (private) residence as the place of occurrence of the external cause Status: Acute Assessment and Plan: Fall precautions PT/OT, rehab (3) Hypertension: Qualifiers: Hypertension type: primary hypertension Qualified Code(s): I10 - Essential (primary) hypertension Code(s): I10 - Essential (primary) hypertension Status: Acute Assessment and Plan: monitor BP continue home carvedilol (4) Hyperlipidemia: Qualifiers: Hyperlipidemia type: mixed hyperlipidemia Qualified Code(s): E78.2 - Mixed hyperlipidemia Code(s): E78.5 - Hyperlipidemia, unspecified Status: Acute Assessment and Plan: cardiac diet patient will resume Nexlizet (5) KATIE (obstructive sleep apnea): Code(s): G47.33 - Obstructive sleep apnea (adult) (pediatric) Status: Acute Assessment and Plan: discussed with patient to obtain home CPAP (6) Asthma: Code(s): J45.909 - Unspecified asthma, uncomplicated Status: Acute Assessment and Plan: no acute exacerbation continue inhalers Quality VTE Prophylaxis VTE prophylaxis: mechanical ordered
--- NOTE | 2025-06-01 14:19 | PC.NURSE ---
Patient has had a total of 5 bowel movements today so far. Patient states that her back pain is less since the constipation has resolved and that she is no longer experiencing frequency with urination at this time. DIRECTOR RADIO notified and will wait to obtain urine specimen for now.
[2025-06-02] VITALS (7 sets, daily range): BP systolic 160–163; BP diastolic 80–83; PULSE 60–69; RESP 16–18; TEMP 36.2–36.7; O2SAT 94–97
[2025-06-02] MEDS: ACETAMINOPHEN 325 MG TABLET 650 MG PO ×4 (05:38→20:35)
[2025-06-02] MEDS: [UNRECOGNIZED DRUG - OTHER] 1 EACH PO (08:13)
[2025-06-02] MEDS: SENNA/DOCUSATE SODIUM TABLET 1 TAB PO ×2 (08:13→17:12)
[2025-06-02] MEDS: CHOLECALCIFEROL (VITAMIN D3) 25 MCG (1,000 UNITS) TABLET 50 MCG PO (08:14)
[2025-06-02] MEDS: ASPIRIN 81 MG CHEWABLE TABLET PO (08:15)
[2025-06-02] MEDS: FAMOTIDINE 20 MG TABLET PO ×2 (08:15→17:13)
[2025-06-02] MEDS: LIDOCAINE 5% PATCH 1 PATCH TRANSDERM (08:16)
[2025-06-02] MEDS: LEVOCETIRIZINE 5 MG BY MOUTH (08:16)
[2025-06-02] MEDS: [UNRECOGNIZED DRUG - OTHER] BY MOUTH (08:16)
[2025-06-02] MEDS: FLUTICASONE/UMECLIDIN/VILANTER 100-62.5-25 MCG ELLIPTA 1 PUFF INHALATION (08:16)
--- NOTE | 2025-06-02 11:18 | PC.NURSE ---
Patient demands salt with her meals or she states she will not eat. Charting that patient refuses prescribed diet.
[2025-06-02 15:36] LABS: Add Urine Microscopic? NO; Appearance Urine Clear (Clear); Glucose Urine UA Negative (Negative); Leukocyte Esterase Ur Negative LEU/UL (Negative); Nitrate Urine Negative (Negative); Specific Grav Ur <= 1.005 (1.010-1.020)
[2025-06-03] VITALS (7 sets, daily range): BP systolic 146–152; BP diastolic 62–83; PULSE 63–84; RESP 16–18; TEMP 36.3–37.1; O2SAT 94–98
[2025-06-03] MEDS: oxyCODONE/ACETAMINOPHEN (*CRX) 5-325 MG TABLET 1 TABLET PO ×3 (01:10→21:58)
[2025-06-03] MEDS: ACETAMINOPHEN 325 MG TABLET 650 MG PO ×2 (07:20→18:05)
[2025-06-03] MEDS: LIDOCAINE 5% PATCH 1 PATCH TRANSDERM (10:28)
[2025-06-03] MEDS: SENNA/DOCUSATE SODIUM TABLET 1 TAB PO ×2 (10:29→17:16)
[2025-06-03] MEDS: ASPIRIN 81 MG CHEWABLE TABLET PO (10:29)
[2025-06-03] MEDS: CHOLECALCIFEROL (VITAMIN D3) 25 MCG (1,000 UNITS) TABLET 50 MCG PO (10:29)
[2025-06-03] MEDS: FAMOTIDINE 20 MG TABLET PO ×2 (10:29→17:16)
[2025-06-03] MEDS: [UNRECOGNIZED DRUG - OTHER] 1 EACH PO (10:30)
[2025-06-03] MEDS: FLUTICASONE/UMECLIDIN/VILANTER 100-62.5-25 MCG ELLIPTA 1 PUFF INHALATION (10:31)
[2025-06-03] MEDS: LEVOCETIRIZINE 5 MG BY MOUTH (10:31)
[2025-06-03] MEDS: [UNRECOGNIZED DRUG - OTHER] BY MOUTH (10:31)
[2025-06-04] MEDS: ACETAMINOPHEN 325 MG TABLET 650 MG PO ×3 (02:39→16:44)
[2025-06-04 05:30] VITALS: O2SAT 95
[2025-06-04] MEDS: FLUTICASONE PROPIONATE 0.05% NA SPR 16 GM BTL (*BKC) 2 SPRAY NASAL (07:55)
[2025-06-04] MEDS: [UNRECOGNIZED DRUG - OTHER] 1 EACH PO (07:55)
[2025-06-04] MEDS: FAMOTIDINE 20 MG TABLET PO ×2 (07:56→16:45)
[2025-06-04] MEDS: FLUTICASONE/UMECLIDIN/VILANTER 100-62.5-25 MCG ELLIPTA 1 PUFF INHALATION (07:56)
[2025-06-04] MEDS: ASPIRIN 81 MG CHEWABLE TABLET PO (07:57)
[2025-06-04] MEDS: CHOLECALCIFEROL (VITAMIN D3) 25 MCG (1,000 UNITS) TABLET 50 MCG PO (07:57)
[2025-06-04] MEDS: SENNA/DOCUSATE SODIUM TABLET 1 TAB PO ×2 (07:57→16:45)
[2025-06-04 08:00] VITALS: BP 141/83; PULSE 68; RESP 18; TEMP 36.5; O2SAT 98
[2025-06-04 08:01] VITALS: PULSE 68
[2025-06-04] MEDS: LIDOCAINE 5% PATCH 1 PATCH TRANSDERM (08:06)
[2025-06-04] MEDS: [UNRECOGNIZED DRUG - OTHER] BY MOUTH (08:07)
[2025-06-04] MEDS: LEVOCETIRIZINE 5 MG BY MOUTH (08:07)
--- NOTE | 2025-06-04 13:51 | PC.NURSE ---
Patient has visitor today and patient was found putting communication lecturer light in the bathroom for assistance. Patient informs her friend helped her to the toilet. Encouraged patient to call nursing staff for assistance.
[2025-06-04 16:00] VITALS: BP 167/79; PULSE 66; RESP 18; TEMP 36.7; O2SAT 99
[2025-06-04 21:24] VITALS: PULSE 65
[2025-06-04] MEDS: oxyCODONE/ACETAMINOPHEN (*CRX) 5-325 MG TABLET 1 TABLET PO (21:24)
[2025-06-05] VITALS (7 sets, daily range): BP systolic 133–154; BP diastolic 55–81; PULSE 58–69; RESP 18; TEMP 36.6; O2SAT 94–98
[2025-06-05] MEDS: ACETAMINOPHEN 325 MG TABLET 650 MG PO ×2 (01:10→14:17)
[2025-06-05] MEDS: oxyCODONE/ACETAMINOPHEN (*CRX) 5-325 MG TABLET 1 TABLET PO ×2 (04:10→21:24)
[2025-06-05] MEDS: FLUTICASONE/UMECLIDIN/VILANTER 100-62.5-25 MCG ELLIPTA 1 PUFF INHALATION (08:26)
[2025-06-05] MEDS: LEVOCETIRIZINE 5 MG BY MOUTH (08:27)
[2025-06-05] MEDS: [UNRECOGNIZED DRUG - OTHER] BY MOUTH (08:27)
[2025-06-05] MEDS: [UNRECOGNIZED DRUG - OTHER] 1 EACH PO (08:27)
[2025-06-05] MEDS: CHOLECALCIFEROL (VITAMIN D3) 25 MCG (1,000 UNITS) TABLET 50 MCG PO (08:28)
[2025-06-05] MEDS: ASPIRIN 81 MG CHEWABLE TABLET PO (08:29)
[2025-06-05] MEDS: SENNA/DOCUSATE SODIUM TABLET 1 TAB PO ×2 (08:30→17:25)
[2025-06-05] MEDS: FAMOTIDINE 20 MG TABLET PO ×2 (08:30→17:25)
[2025-06-05] MEDS: LIDOCAINE 5% PATCH 1 PATCH TRANSDERM (08:31)
--- NOTE | 2025-06-05 11:14 | P.PNIM_ITS ---
Progress Note: A&P Assessment and Plan (1) Fracture of lumbar spine: Qualifiers: Encounter type: initial encounter Fracture morphology: other fracture Fracture type: closed Lumbar vertebra fracture level: L1 Qualified Code(s): S32.018A - Other fracture of first lumbar vertebra, initial encounter for closed fracture Code(s): S32.009A - Unspecified fracture of unspecified lumbar vertebra, initial encounter for closed fracture Status: Acute Assessment and Plan: CT showed L1 endplate fracture ED MD discussed with trauma surgery at [facility] and recommendations was for admission for pain control, PT/OT and TSLO brace with ambulation patient is refusing the TSLO brace pain control with PRN Percocet, scheduled Robaxin and PRN Tylenol added on Cymbalta 30 mg PO daily Lidocaine patch PT/OT, rehab (2) Fall as cause of accidental injury at home as place of occurrence: Qualifiers: Encounter type: initial encounter Qualified Code(s): W19.XXXA - Unspecified fall, initial encounter; Y92.009 - Unspecified place in unspecified non-institutional (private) residence as the place of occurrence of the external cause Code(s): W19.XXXA - Unspecified fall, initial encounter; Y92.009 - Unspecified place in unspecified non-institutional (private) residence as the place of occurrence of the external cause Status: Acute Assessment and Plan: Fall precautions PT/OT, rehab uses walker to ambulate (3) Hypertension: Qualifiers: Hypertension type: primary hypertension Qualified Code(s): I10 - Essential (primary) hypertension Code(s): I10 - Essential (primary) hypertension Status: Acute Assessment and Plan: monitor BP continue home carvedilol (4) Hyperlipidemia: Qualifiers: Hyperlipidemia type: mixed hyperlipidemia Qualified Code(s): E78.2 - Mixed hyperlipidemia Code(s): E78.5 - Hyperlipidemia, unspecified Status: Acute Assessment and Plan: cardiac diet patient will resume Nexlizet on discharge (5) KATIE (obstructive sleep apnea): Code(s): G47.33 - Obstructive sleep apnea (adult) (pediatric) Status: Acute Assessment and Plan: discussed with patient to obtain home CPAP family brought cpap and now patient is using at night here (6) Asthma: Code(s): J45.909 - Unspecified asthma, uncomplicated Status: Acute Assessment and Plan: no acute exacerbation continue inhalers Subjective Date/time seen: 06/05/25 11:14 Interval history: Patient seen for a follow up visit. Patient sitting in the chair, in no acute distress. Patients family at bedside during visit. Patient reports her pain is somewhat controlled with current pain regimen including Robaxin, PRN Tylenol and Percocet at bedtime. Patient encouraged to take medication as she needs it throughout the day. Family reported that patient has been depressed since the loss of her Shee took Cymbalta in the past. Discussed with patient the option of restarting the Cymbalta to help with her mood and also the back pain. Patient agreed to start the medication. Continue to monitor for improvement. Review of Systems Review of Systems: All systems reviewed & are unremarkable except as noted in HPI and below Exam Const: General: comfortable and no acute distress HENMT: Face/Nose/Sinus: Normal nares present Mouth: Yes moist mucous membranes Eyes: General: appearance normal, both eyes and all related structures Pupils: Equal, round and reactive pupils present Neck: Neck: supple Resp: Effort & Inspection: normal respiratory effort Auscultation: clear to auscultation bilaterally Cardio: Rate: regular rate Rhythm: regular rhythm GI: Auscultation: normal bowel sounds Skin: General skin exam: normal color and no rashes or lesions noted Neuro: Cranial nerves: Yes Equal, round and reactive pupils present Extrem: General: normal to inspection Psych: Mental Status: mental status grossly normal Affect: normal affect Objective Data Vital Signs Vital Signs: Vital Signs - 24 hr 06/04/25 16:00 06/04/25 21:24 06/05/25 00:00 Temperature 98.0 F 97.9 F Pulse Rate 66 65 65 Respiratory Rate 18 18 Blood Pressure 167/79 H 154/55 H Pulse Oximetry 99 95 Oxygen Delivery Room Air Room Air 06/05/25 08:00 06/05/25 08:28 Temperature 97.9 F Pulse Rate 69 69 Respiratory Rate 18 Blood Pressure 139/71 Pulse Oximetry 98 Oxygen Delivery Room Air Intake/Output Intake/Output: Intake & Output 06/02/25 06/03/25 06/04/25 06/05/25 23:59 23:59 23:59 23:59 Intake Total 0 2540 2100 1440 Balance 0 2540 2100 1440 Meds/Results Medications: Active Medications Generic Name Dose Route Start Last Admin Trade Name Freq PRN Reason Stop Dose Admin Acetaminophen 650 mg 05/31/25 13:40 06/05/25 01:10 Acetaminophen 325 Mg Tablet PO 650 mg Q4H PRN Administration Mild Pain (1-3) or Fever Albuterol 1 puff 05/31/25 14:24 Albuterol Sulfate (*Sp) Inhaler INHALATION Q4H PRN Wheezing/Shortness Of Breath Aspirin 81 mg 06/01/25 09:00 06/05/25 08:29 Aspirin 81 Mg Chewable Tablet PO 81 mg DAILY SIENNA Administration Bisacodyl 10 mg 05/31/25 13:40 Bisacodyl 10 Mg Suppository RECTAL DAILY PRN Constipation Carvedilol 6.25 mg 05/31/25 21:00 06/05/25 08:28 Carvedilol 3.125 Mg Tablet PO 6.25 mg Q12HR SIENNA Administration Famotidine 20 mg 05/31/25 17:00 06/05/25 08:30 Famotidine 20 Mg Tablet PO 20 mg BID SIENNA Administration Fluticasone Propionate 2 spray 06/01/25 09:00 06/05/25 08:31 Fluticasone Propionate 0.05% Na Spr 16 Gm Btl (*Bkc) NASAL Not Given DAILY [facility] Fluticasone/Umeclidinium/Vilanterol 1 puff 06/01/25 09:00 06/05/25 08:26 Fluticasone/Umeclidin/Vilanter 100-62.5-25 Mcg Ellipta INHALATION 1 puff DAILY SIENNA Administration Lidocaine 1 patch 06/01/25 09:00 06/05/25 08:31 Lidocaine 5% Patch TRANSDERM 1 patch DAILY SIENNA Administration Magnesium Hydroxide 30 ml 05/31/25 13:40 06/01/25 08:18 Magnesium Hydroxide Susp 30 Ml Udc PO 30 ml DAILY PRN Administration Constipation Methocarbamol 500 mg 06/01/25 09:00 06/05/25 08:30 Methocarbamol 500 Mg Tablet PO 500 mg QID SIENNA Administration Non-Formulary Medication 1 tablet 06/01/25 09:00 06/05/25 08:27 Bempedoic Acid-Ezetimibe [Nexlizet] PO 07/01/25 08:59 1 tablet DAILY SIENNA Administration Nonformulary Drug - 1 each 06/02/25 09:00 06/05/25 08:27 Levocetirizine 5mg BY MOUTH 07/02/25 08:59 1 each DAILY SIENNA Administration Ondansetron HCl 4 mg 06/01/25 23:08 Ondansetron Hcl Odt 4 Mg Tablet PO Q6H PRN Nausea And Vomiting Oxycodone/Acetaminophen 1 tablet 05/31/25 13:40 06/05/25 04:10 Oxycodone/Acetaminophen (*Crx) 5-325 Mg Tablet PO 1 tablet Q6H PRN Administration Pain Rated 4-6 Senna/Docusate Sodium 1 tab 05/31/25 17:00 06/05/25 08:30 Senna/Docusate Sodium Tablet PO 1 tab BID SIENNA Administration Vitamin D 50 mcg 06/01/25 09:00 06/05/25 08:28 Cholecalciferol (Vitamin D3) 25 Mcg (1,000 Units) Tablet PO 50 mcg DAILY SIENNA Administration Quality VTE Prophylaxis VTE prophylaxis: mechanical ordered
--- NOTE | 2025-06-05 17:34 | PC.NURSE ---
Patient refused new order for cymbalta, stating that she does not feel like she needs an antidepressant. Patient stated that God healed her depression after her and that once it is in your medical record, the medical community believes that you need that every day. Perianesthesia Manager educated patient that it is her right to refuse any medication and patient stated that her daughter was pressuring her to take an antidepressant.
[2025-06-06] VITALS: BP 155/69; PULSE 59; RESP 16; TEMP 37.2; O2SAT 97
[2025-06-06] MEDS: ACETAMINOPHEN 325 MG TABLET 650 MG PO ×3 (02:47→14:52)
[2025-06-06 05:30] VITALS: O2SAT 95
[2025-06-06 08:00] VITALS: BP 157/62; PULSE 60; RESP 16; TEMP 36.5; O2SAT 96
[2025-06-06] MEDS: CHOLECALCIFEROL (VITAMIN D3) 25 MCG (1,000 UNITS) TABLET 50 MCG PO (08:12)
[2025-06-06 08:13] VITALS: PULSE 60
[2025-06-06] MEDS: SENNA/DOCUSATE SODIUM TABLET 1 TAB PO ×2 (08:13→17:29)
[2025-06-06] MEDS: FAMOTIDINE 20 MG TABLET PO ×2 (08:14→17:29)
[2025-06-06] MEDS: ASPIRIN 81 MG CHEWABLE TABLET PO (08:14)
[2025-06-06] MEDS: LEVOCETIRIZINE 5 MG BY MOUTH (08:14)
[2025-06-06] MEDS: [UNRECOGNIZED DRUG - OTHER] BY MOUTH (08:14)
[2025-06-06] MEDS: LIDOCAINE 5% PATCH 1 PATCH TRANSDERM (08:14)
[2025-06-06] MEDS: [UNRECOGNIZED DRUG - OTHER] 1 EACH PO (08:15)
[2025-06-06] MEDS: FLUTICASONE/UMECLIDIN/VILANTER 100-62.5-25 MCG ELLIPTA 1 PUFF INHALATION (08:15)
[2025-06-06 16:00] VITALS: BP 160/71; PULSE 57; RESP 18; TEMP 36.6; O2SAT 97
[2025-06-06] MEDS: oxyCODONE/ACETAMINOPHEN (*CRX) 5-325 MG TABLET 1 TABLET PO (20:09)
[2025-06-06 20:10] VITALS: PULSE 71
[2025-06-07] VITALS: BP 151/68; PULSE 61; RESP 18; TEMP 36.7; O2SAT 98
[2025-06-07] MEDS: ACETAMINOPHEN 325 MG TABLET 650 MG PO ×3 (02:13→22:04)
--- NOTE | 2025-06-07 04:10 | PC.NURSE ---
Pt asleep and no signs of discomfort noted.
--- NOTE | 2025-06-07 05:00 | PC.NURSE ---
Pt up to the bathroom with walker and standby assist of one.
[2025-06-07 05:30] VITALS: O2SAT 94
--- NOTE | 2025-06-07 06:10 | PC.NURSE ---
Pt asleep and no signs of discomfort noted.
[2025-06-07 08:00] VITALS: BP 147/84; PULSE 68; RESP 18; TEMP 36.7; O2SAT 97
[2025-06-07] MEDS: FAMOTIDINE 20 MG TABLET PO ×2 (09:12→17:49)
[2025-06-07] MEDS: CHOLECALCIFEROL (VITAMIN D3) 25 MCG (1,000 UNITS) TABLET 50 MCG PO (09:12)
[2025-06-07] MEDS: ASPIRIN 81 MG CHEWABLE TABLET PO (09:13)
[2025-06-07] MEDS: SENNA/DOCUSATE SODIUM TABLET 1 TAB PO ×2 (09:14→17:49)
[2025-06-07] MEDS: [UNRECOGNIZED DRUG - OTHER] 1 EACH PO (09:15)
[2025-06-07] MEDS: [UNRECOGNIZED DRUG - OTHER] BY MOUTH (09:16)
[2025-06-07] MEDS: LEVOCETIRIZINE 5 MG BY MOUTH (09:16)
[2025-06-07] MEDS: FLUTICASONE/UMECLIDIN/VILANTER 100-62.5-25 MCG ELLIPTA 1 PUFF INHALATION (10:00)
[2025-06-07] MEDS: LIDOCAINE 5% PATCH 1 PATCH TRANSDERM (10:00)
[2025-06-07 16:00] VITALS: BP 148/74; PULSE 88; RESP 20; TEMP 36.1; O2SAT 95
[2025-06-07] MEDS: oxyCODONE/ACETAMINOPHEN (*CRX) 5-325 MG TABLET 1 TABLET PO (16:04)
[2025-06-07 20:14] VITALS: PULSE 65
[2025-06-07 23:04] VITALS: BP 153/62; PULSE 64; RESP 17; TEMP 36.4; O2SAT 99
[2025-06-08] MEDS: oxyCODONE/ACETAMINOPHEN (*CRX) 5-325 MG TABLET 1 TABLET PO ×2 (02:28→10:16)
[2025-06-08] MEDS: ACETAMINOPHEN 325 MG TABLET 650 MG PO (07:56)
[2025-06-08] MEDS: CHOLECALCIFEROL (VITAMIN D3) 25 MCG (1,000 UNITS) TABLET 50 MCG PO (07:58)
[2025-06-08] MEDS: ASPIRIN 81 MG CHEWABLE TABLET PO (07:58)
[2025-06-08] MEDS: SENNA/DOCUSATE SODIUM TABLET 1 TAB PO (07:58)
[2025-06-08] MEDS: [UNRECOGNIZED DRUG - OTHER] 1 EACH PO (07:59)
[2025-06-08] MEDS: FAMOTIDINE 20 MG TABLET PO (07:59)
[2025-06-08 08:00] VITALS: BP 157/81; PULSE 69; RESP 22; TEMP 36.3; O2SAT 97
[2025-06-08] MEDS: LEVOCETIRIZINE 5 MG BY MOUTH (08:00)
[2025-06-08] MEDS: [UNRECOGNIZED DRUG - OTHER] BY MOUTH (08:00)
[2025-06-08] MEDS: LIDOCAINE 5% PATCH 1 PATCH TRANSDERM (08:01)
[2025-06-08] MEDS: FLUTICASONE/UMECLIDIN/VILANTER 100-62.5-25 MCG ELLIPTA 1 PUFF INHALATION (08:02)
--- NOTE | 2025-06-08 11:11 | P.DS_ITS ---
DS: Admitting Diagnosis Discharge Date 06/08/2025 Admitting Diagnosis L1 endplate fracture/ pain control and rehab DS: Discharge Diagnosis Discharge Diagnosis (1) Fracture of lumbar spine: Qualifiers: Encounter type: initial encounter Fracture morphology: other fracture Fracture type: closed Lumbar vertebra fracture level: L1 Qualified Code(s): S32.018A - Other fracture of first lumbar vertebra, initial encounter for closed fracture Code(s): S32.009A - Unspecified fracture of unspecified lumbar vertebra, initial encounter for closed fracture Status: Acute (2) Fall as cause of accidental injury at home as place of occurrence: Qualifiers: Encounter type: initial encounter Qualified Code(s): W19.XXXA - Unspecified fall, initial encounter; Y92.009 - Unspecified place in unspecified non-institutional (private) residence as the place of occurrence of the external cause Code(s): W19.XXXA - Unspecified fall, initial encounter; Y92.009 - Unspecified place in unspecified non-institutional (private) residence as the place of occurrence of the external cause Status: Acute (3) Hypertension: Qualifiers: Hypertension type: primary hypertension Qualified Code(s): I10 - Essential (primary) hypertension Code(s): I10 - Essential (primary) hypertension Status: Acute (4) Hyperlipidemia: Qualifiers: Hyperlipidemia type: mixed hyperlipidemia Qualified Code(s): E78.2 - Mixed hyperlipidemia Code(s): E78.5 - Hyperlipidemia, unspecified Status: Acute (5) KATIE (obstructive sleep apnea): Code(s): G47.33 - Obstructive sleep apnea (adult) (pediatric) Status: Acute (6) Asthma: Code(s): J45.909 - Unspecified asthma, uncomplicated Status: Acute DS: Summary Hospital Course Reason for hospitalization: L1 endplate fracture/ pain control and rehab Hospital Course: Admission: Patient was a 70 year old female with PMH of asthma, COPD, KATIE, cardiomyopathy, GERD, HLD and HTN. Patient was admitted to [facility] on 05/30/2025 after a fall at home. Patient landed on her back and had immediate pain. Patients imaging showed an acute L1 endplate fracture. The ER MD spoke with trauma services at [facility] and it was recommended to admit patient for pain control, PT and a TSLO brace. Patient was evaluated by PT and OT and it was recommended for patient to receive additional rehab before returning home alone. Patient's pain was controlled with PRN Percocet, scheduled methocarbamol and PRN Tylenol. Patient refused to wear the TSLO brace and understands that this was recommended by the trauma surgeon. Patient seen in her room, lying in bed, in no acute distress. Patient denies acute complaints. Patient with complaints of constipation, orders placed for nursing staff. Patient will be admitted to [facility] in a swing bed for inpatient rehabilitation. Plan will be for patient to return home on discharge. Hospital Course: Patient continues admission to [facility] swing bed for continued physical and occupational therapy with pain management. Per medical chart though patient was refusing to wear TSLO brace reported to uncomfortable. Patient progressed with therapy as expected no events during her hospitalization. Patient was discharged home with home health reports has walker from son at home. Patient seen assessed day of discharge in no acute distress she was discharged narcotics for pain management as needed but did encourage her to continue with her bowel regiment to avoid complications from the use of narcotics and to deescalate as pain improves. Patient agreed support team member discharge plan. Status at Discharge Functional status at discharge: uses cane/walker Overall status at discharge: patient is progressing back to baseline Time Spent with Patient Time attestation: Total time spent providing and/or coordinating discharge services: Time spent: Less than 30 minutes Exam Const: General: comfortable and no acute distress HENMT: Face/Nose/Sinus: Normal nares present Mouth: Yes moist mucous membranes Eyes: General: appearance normal, both eyes and all related structures Pupils: Equal, round and reactive pupils present Neck: Neck: supple Resp: Effort & Inspection: normal respiratory effort Auscultation: clear to auscultation bilaterally Cardio: Rate: regular rate Rhythm: regular rhythm GI: Auscultation: normal bowel sounds Skin: General skin exam: normal color and no rashes or lesions noted Neuro: Cranial nerves: Yes Equal, round and reactive pupils present Extrem: General: normal to inspection Psych: Mental Status: mental status grossly normal Affect: normal affect Discharge Plan Discharge Attending physician on discharge: Ham Russell Consulting providers: Alexandra Benites Discharging Clinician: Alexandra Benites Anticipated Discharge Date/Time: 10/09/25 11:05 Patient Disposition: Home with Home Health Service Activity: as tolerated and other - see discharge instructions Diet: heart healthy Discharge Instructions: 1) Lumbar Fracture * Pain medication has been ordered please take as needed * continue to wear brace with ambulation * avoid heavy lifting or strenuous exercise during healing process * continue bowel regimen as indicated while taking narcotics avoid constipation How can you care for yourself at home? ? Keep track of any new symptoms or changes in your symptoms. ? Rest until you feel better. ? Be safe with medicines. Take your medicines exactly as prescribed. Call your doctor if you think you are having a problem with your medicine. ? Do not drive after taking a prescription pain medicine. ? Ensure to follow-up with primary care physician as indicated and provide updated medication list provided to you at discharge. When should you call for help? Call 911 anytime you think you may need emergency care. For example, call if: ? You passed out (lost consciousness). Call your doctor now or seek immediate medical care if: ? You have new symptoms like fever, difficulty breathing, Chest pain, vomiting, or rash. ? You have new or different pain. ? You are confused and are having trouble thinking clearly. ? Your symptoms are getting worse. Watch closely for changes in your health, and be sure to contact your doctor if: ? You do not get better as expected. Patient Instructions: Antibiotic Form, Methocarbamol (By mouth), Duloxetine (By mouth), Thoracolumbar Fracture (DC), Acute Low Back Pain (GEN), Clamshell Brace (DC) Patient Language: Eritrean Stand Alone Forms: General Discharge Information Follow-up/Referrals: Cresencio Weber MD [Primary Care Provider, Family Practice] - 1 week Referral Note: Call to make appointment. Discharge Medications: New methocarbamol 500 mg Tablet 500 mg PO QID Qty: 120 0RF duloxetine [Cymbalta] 30 mg Capsule,Delayed Release(Dr/Ec) 30 mg PO DAILY Qty: 30 0RF Continued acetaminophen 325 mg Tablet 650 mg PO Q4H PRN (Reason: Mild Pain (1-3) Or Fever) Qty: 30 0RF bisacodyl 10 mg Suppository 10 mg RECTAL DAILY PRN (Reason: Constipation) Qty: 30 0RF sennosides-docusate sodium [Senokot-S] 8.6-50 mg Tablet 1 tab-cap PO BID Qty: 60 0RF lidocaine [Lidoderm] 5 % Adhesive Patch,Medicated 1 patch transdermal DAILY Qty: 30 0RF magnesium hydroxide [Milk of Magnesia] 400 mg/5 mL Suspension 30 ml PO DAILY PRN (Reason: Constipation) Qty: 355 0RF famotidine [Pepcid] 20 mg tablet 20 mg PO BID Qty: 30 0RF carvedilol 3.125 mg tablet 6.25 mg PO Q12H Rx Instructions: must administer with a meal/food oxycodone-acetaminophen 5-325 mg Tablet 1 tablet PO Q6H PRN (Reason: Pain Rated 4-6) Qty: 30 0RF Nexlizet 180-10 mg Tablet 1 tablet PO DAILY cholecalciferol (vitamin D3) 50 mcg (2,000 unit) capsule 50 mcg PO DAILY aspirin 81 mg tablet,chewable 81 mg PO DAILY albuterol sulfate 90 mcg/actuation HFA aerosol inhaler 1 - 2 puff inhalation Q4-6H PRN (Reason: shortness of breath or wheezing) Qty: 8.5 2RF fluticasone propionate [Flonase Allergy Relief] 50 mcg/actuation spray,suspension 1 spray intranasal DAILY Qty: 18.2 0RF Rx Instructions: administer into each nostril albuterol sulfate 0.63 mg/3 mL solution for nebulization 0.63 mg inhalation Q4-6H PRN (Reason: shortness of breath or wheezing) Qty: 75 0RF levalbuterol tartrate [Xopenex HFA] 45 mcg/actuation HFA aerosol inhaler 2 inh inhalation Q6H Qty: 15 3RF Breztri Aerosphere 160-9-4.8 mcg/actuation HFA aerosol inhaler 2 inh inhalation BID Qty: 32.1 3RF Rx Instructions: Rinse mouth and spit after each use. Use with spacer. Date of admission: 05/31/25 11:56 Primary Care Provider: Cresencio Weber Admitting Provider: Ham Russell Attending physician on admission: Ham Russell Condition: Stable Quality VTE Prophylaxis VTE prophylaxis: mechanical ordered -Patient's previous records reviewed on admission -ER notes reviewed in detail on admission -discussed all findings and current treatment plan with patient/Family/POA -Consultations reviewed for recommendations -Patient's disposition for safe discharge discussed with director of casework department -radiology imaging, EKG and test results I have personally reviewed and interpreted unless otherwise specified Dictation performed by [employer] direct speech recognition software, therefore weigh and charge worker variants and typographical errors may occur. Hospitalist MIPS Heart Failure (Exclusion) Patient has history of Heart Transplant or Left Ventricular Assistive Device?: No IF YES, STOP HERE Heart Failure (Qualifier) Patient has current or prior documentation of LVEF less than or equal to 40%, or mod/servere depressed LVSF?: No IF NO, STOP HERE
--- NOTE | 2025-06-08 13:44 | PC.NURSE ---
DC pt to son via wheelchair to private vehicle. pt aox4, appropriate, vss at discharge. All personal belongings sent with pt including phone, rn geriatric, wallet clothing, back brace.
--- NOTE | 2025-06-12 10:31 | PC.NURSE ---
Pt called up with questions multiple times on the day of discharge. Pt denies any further questions. Son came back up to berry picker pt's home meds that were left in med-room.
== END 2025-06-08 13:15 | disposition home health service (06) | DRG 560 ==
PROVIDERS: Nurse Practitioner Adult Health; Admitting Provider Internal Medicine; PCP Family Medicine; Visit Provider Internal Medicine
DX: S32.018D Other fracture of first lumbar vertebra, subsequent encounter for fracture with routine healing (principal); I42.9 Cardiomyopathy, unspecified; W19.XXXD Unspecified fall, subsequent encounter; E78.5 Hyperlipidemia, unspecified; I10 Essential (primary) hypertension; G47.33 Obstructive sleep apnea (adult) (pediatric); J44.9 Chronic obstructive pulmonary disease, unspecified; K21.9 Gastro-esophageal reflux disease without esophagitis; K59.00 Constipation, unspecified; Z85.42 Personal history of malignant neoplasm of other parts of uterus; Z95.5 Presence of coronary angioplasty implant and graft; Z90.49 Acquired absence of other specified parts of digestive tract; Z79.82 Long term (current) use of aspirin; Z88.0 Allergy status to penicillin
CPT/HCPCS: 81003; 97110; 97161; 97165; 97530; 97535; A9270

== ENCOUNTER 2025-06-28 14:00 | Outpatient (CLI) | payer MEDICARE, SELFPAY ==
--- NOTE | ~2025-06-28 | XR_ITS ---
XR lumbar spine 2-3V Indication: S32.018A - Other fracture of first lumbar vertebra, initi... Comparison: None Findings: Remote superior endplate fracture of L3, no acute fracture or subluxation identified. Moderate loss of disc height throughout Soft tissues unremarkable Impression: No acute abnormality. Reviewed, dictated and finalized at location P. Impression: No acute abnormality.
--- OUTSIDE RECORDS SUMMARY | 2025-06-28 15:46 | XMS_ITS | Patient Health Record ---
Author Organization [facility] Medical Address [address] [address] Care Team Providers Care Pattern Carrier Name Role Phone MIKKI ROUSE Primary Care Provider [phone] Allergies Allergen (clinical drug ingredient) Drug/Non Drug [...] Date Coverage End Date [facility] [facility] P[facility] D-[place] [address] [address] [place] [address] [id number] [id number] Self - patient is the insured 2 Medical (General) History Medical History History ICD Code Problems: Sinus Problems: Active Bronchitis HTN Arthritis Asthma Uterine cancer Heart disease Sleep apnea Surgical History Surgery Date(Month/Year) Gallbladder 2018 Tonsils 196 Hysterectomy estab Hospitalization History Reason Date(Month/Year)
--- OUTSIDE RECORDS SUMMARY | 2025-06-28 15:47 | XMS_ITS | Encounter Summary ---
Author Organization [facility] Healthcare Address [address] [place] [address] Care Team Providers Care Washer Machine Name Role Phone Cresencio Weber MD Primary Care Provider + [phone] Encounter Details Date Type Department Care Team (Late st Contact Info) Description 06/28/2025 Telephone [facility] Medical Group Cardiology [address] [place] [address] Karthikeyan Cotton MD [address] [facility] [address] [place] [address] Social History Tobacco Use Types Packs/Day Years Used Date Smoking Tobacco: Never Smokeless Tobacco: Never Comments No Sex and Gender Information Value Date Recorded Sex Assigned at Not on file Legal Sex Female 11:35 AM CDT Gender Identity Not on file Sexual Orientation Not on file documented as of this encounter Miscellaneous Notes * Telephone Encounter - Michelle Shelley LPN - 06/28/2025 8:56 AM CDT Chronic condition verification form signed and faxed to [facility] documented in this encounter Plan of Treatment Not on file documented as of this encounter Visit Diagnoses Not on filedocumented in this encounter Care Teams Washer Machine Relationship Specialty Start Date End Date Cresencio Weber MD PCP - General Family Medicine 11/05/22 documented as of this encounter
--- OUTSIDE RECORDS SUMMARY | 2025-06-28 15:47 | XMS_ITS | Clinical Summary ---
Author Organization [facility] D Address [address] [place] [address] Care Team Providers Care Steamtable Attendant Railroad Name Role Phone Cresencio Weber MD Primary Care Provider [phone] Allergies Active Allergy Reactions Criticality Noted Date [...] 2 (two) times a day 06/20/2024 Active carvediloL (COREG) 6.25 mg tablet TAKE [...] BY MOUTH EVERY DAY 90 tablet 2 05/10/2025 Active Active Problems Problem Noted Date Diagnosed Date Statin myopathy 11/06/2022 Assessment & Plan (07/05/2024 11:03 AM WEB ANALYTICS SPECIALIST): On Nexlizet, LDL above goal at 88. [...] day Assessment & Plan (07/05/2024 11:01 AM WEB ANALYTICS SPECIALIST): Unchanged EF, 38%. Unable to tolerate Entresto, [...] - continue carvedilol 6.25 b.i.d. - discussed PROP WORKER but declines - continue cardiac rehab - will repeat echo at six-month follow-up to reassess ejection fraction; if it is stable or reduced from prior then will advocate to her again to retry spironolactone Assessment & Plan (11/06/2022 10:20 PM WEB ANALYTICS SPECIALIST): Primarily nonischemic cardiomyopathy though with coexisting single-vessel [...] also discussed in depth likely benefit of PROP WORKER D given her persistently low ejection fraction and wide left bundle branch block however she adamantly declines. - increase carvedilol back to 6.25 b.i.d. - continue cardiac rehab Assessment & Plan (08/06/2022 4:53 PM WEB ANALYTICS SPECIALIST): Primarily nonischemic cardiomyopathy though with coexisting single-vessel [...] tolerated. She would be a candidate for PROP WORKER D given her left bundle branch [...] 6 weeks Coronary artery disease invo lving [place] coronary artery of [place] heart without angina pectoris 06/03/2022 Assessment & Plan (01/08/2025 3:14 PM CDT): History of mid LAD PCI and remains free of angina. -- continue aspirin and Nexlizet, carvedilol Assessment & Plan (07/05/2024 11:02 AM WEB ANALYTICS SPECIALIST): Denying any complaints of angina. Continue beta-santana, aspirin, and Nexlizet Assessment & Plan (12/07/2023 2:47 PM CDT): History of mid LAD PCI and remains free of angina. - continue aspirin and Nexlizet, carvedilol Assessment & Plan (05/12/2023 1:12 PM CDT): History of mid LAD PCI and remains free of angina. - continue aspirin and Nexlizet, carvedilol Assessment & Plan (11/06/2022 10:18 PM WEB ANALYTICS SPECIALIST): History of mid LAD PCI and remains free of angina. She reports history of diffuse myalgias and joint pain prompting discontinuation of multiple different statin agents and therefore is on Nexlizet which she seems to be tolerating. - continue aspirin and Nexlizet, carvedilol Assessment & Plan (08/06/2022 4:54 PM WEB ANALYTICS SPECIALIST): History of mid LAD PCI and remains [...] Encounters Date Type Department Care Team Description 06/28/2025 Telephone [facility] Cardiology [address] [place] [address] [address], [place] [address] Karthikeyan Cotton MD 06/12/2025 Telephone [facility] Cardiology [address] [place] [address] [address] [place] [address] Karley Rhoades MA 05/23/2025 Telephone [facility] Cardiology [address] [place] [address] [address] Karthikeyan Cotton MD 05/16/2025 Telephone [facility] Cardiology [address] [place] [address] [address] [address] Karthikeyan Cotton MD Test Results 05/08/2025 Telephone [facility] Cardiology [address] [place] [address] [address] [place] [address] Karthikeyan Cotton MD from Last 3 Months [...] 36.4 C (97.5 F) 07/11/2024 1:08 PM WEB ANALYTICS SPECIALIST Respiratory Rate 16 07/11/2024 1:08 PM WEB ANALYTICS SPECIALIST Oxygen Saturation 96% 01/09/2025 9:56 AM CDT [...] 65+ 2019 Influenza Vaccine (#1) 2025 Insurance [facility] MEDIC[facility] ADVANT[facility] Member Subscriber Plan / Payer (Ef fective 2022-Present) Name:NicPegie Rasta Relation to Subscriber:Self Name:CheoPeg bartonie Rasta Payer ID:[id number] (NAIC) Type:[facility] MED[facility] Address: [place] [phone] Member Subscriber Plan / Payer (Ef fective 2022-Present) Name:Beverly Lucero Relation to Subscriber:Self Name:CheoBeverly barton Payer ID:[id number] (NAIC) Type:[facility] MEDIC[facility] Address: [place] [phone] Care Teams Steamtable Attendant Railroad Relationship Specialty Start Date End Date Cresencio Weber MD PCP - General Family Medicine 11/05/22
== END 2025-06-28 14:01 | disposition home or self-care (01) ==
LOC: CHSIMG 14:01
PROVIDERS: PCP Family Medicine; Visit Provider Nurse Practitioner Adult Health
DX: S32.018A Other fracture of first lumbar vertebra, initial encounter for closed fracture (principal)
CPT/HCPCS: 72100

== ENCOUNTER 2025-07-12 13:56 | Outpatient (CLI) | payer MEDICARE, SELFPAY ==
--- NOTE | ~2025-07-12 | CT_ITS ---
EXAMINATION: CT brain wo kayce, 07/12/2025 14:10 DIRECTOR INTERNAL COMMUNICATIONS HISTORY: S32.018A - Other fracture of first lumbar vertebra, initi... COMPARISON: No comparisons available. Technique: Axial images obtained of the brain without contrast. One or more of the following dose reduction techniques were used: automated exposure control, adjustment of the mA and/or kV according to patient size, use of iterative reconstruction technique. Findings: No acute infarct or parenchymal hemorrhage. No abnormal mass or mass effect. No midline shift. No extra-axial fluid collections. No hydrocephalus. Mastoid air cells unremarkable. Sinuses and orbits unremarkable. No acute fracture. No significant facial or scalp soft tissue swelling evident. No radiopaque foreign body is seen. Impression: 1.No acute intracranial abnormality. Reviewed, dictated and finalized at location P. CTOR INTERNAL COMMUNICATIONS Impression: 1.No acute intracranial abnormality.
--- NOTE | ~2025-07-12 | DEXA_ITS ---
Bone Density Report Name: KERRY OLMOS Age: 70 Sex: Female Ethnicity: White Date of : 1955 Indication: postmenopausal; screening for osteoporosis; cancer; hysterectomy; Referring Provider: LORIE CELAYA Study: Bone densitometry was performed. Exam Date: July 12, 2025 Accession number: [id number] Bone Density: Region BMD T-score Z-score Classification AP Spine(L1-L4) 1.083 0.3 2.5 Normal Femoral Neck (Left) 0.995 1.3 3.2 Normal Total Hip (Left) 1.008 0.5 2.1 Normal Femoral Neck (Right) 1.008 1.4 3.3 Normal Total Hip (Right) 1.019 0.6 2.2 Normal Femoral Neck Mean 1.001 1.4 3.2 Normal Total Hip Mean 1.013 0.6 2.2 Normal World Health Organization criteria for BMD impression classify patients as: Normal (T-score at or above -1.0), Osteopenia (T-score between -1.0 and -2.5), or Osteoporosis (T-score at or below -2.5). 10-year Fracture Risk: FRAX not reported because: All T-scores for Spine Total, Hip Total, Femoral Neck at or above -1.0 Clinical Information Provided by Patient: Has used the following medications: Vitamin D Has the following medical conditions: Cancer, Hysterectomy Patient maximum height was 72 Menopause Age: 49 No regular weight bearing exercise Drinks caffeinated beverages Onset of menses at age 11 Number of children 2 Impression: The patient has normal bone mass. Discussion: LOW RISK OF FRACTURE; BONE DENSITY IS WELL ABOVE THE MINIMUM DESIRABLE LEVEL AND ABOVE AVERAGE FOR AGE AND SEX AT ALL SKELETAL SITES TESTED. This person's bone density is above expected limits for age and sex. This is rarely clinically significant, but should be pursued if there are significant musculoskeletal complaints. The patient should follow a healthful lifestyle (good nutrition with adequate calcium and vitamin D, and appropriate weight-bearing exercise). Follow-Up: Consider repeating this study in 5 years or sooner if there is some new clinical indication. Reported by: JOHN on 07/12/2025 2:24:00 PM. Reviewed, dictated and finalized at location A.
--- OUTSIDE RECORDS SUMMARY | 2025-07-12 15:01 | XMS_ITS | Clinical Summary ---
[facility] Organization [facility] D Address [address] [place] [address] Care Team Providers Care Netsuite Developer Name Role Phone Cresencio Weber MD Primary Care Provider Allergies Active Allergy Reactions Criticality Noted Date [...] 11/06/2022 Assessment & Plan (07/05/2024 11:03 AM EVENTS INTERN): On Nexlizet, LDL above goal at 88. [...] day Assessment & Plan (07/05/2024 11:01 AM EVENTS INTERN): Unchanged EF, 38%. Unable to tolerate Entresto, [...] - continue carvedilol 6.25 b.i.d. - discussed ATHLETIC EQUIPMENT CUSTODIAN but declines - continue cardiac rehab - will repeat echo at six-month follow-up to reassess ejection fraction; if it is stable or reduced from prior then will advocate to her again to retry spironolactone Assessment & Plan (11/06/2022 10:20 PM EVENTS INTERN): Primarily nonischemic cardiomyopathy though with coexisting single-vessel [...] also discussed in depth likely benefit of ATHLETIC EQUIPMENT CUSTODIAN D given her persistently low ejection fraction and wide left bundle branch block however she adamantly declines. - increase carvedilol back to 6.25 b.i.d. - continue cardiac rehab Assessment & Plan (08/06/2022 4:53 PM EVENTS INTERN): Primarily nonischemic cardiomyopathy though with coexisting single-vessel [...] tolerated. She would be a candidate for ATHLETIC EQUIPMENT CUSTODIAN D given her left bundle branch block [...] 6 weeks Coronary artery disease invo lving [place] coronary artery of [place] heart without angina pectoris 06/03/2022 Assessment & Plan (01/08/2025 3:14 PM CDT): History of mid LAD PCI and remains free of angina. -- continue aspirin and Nexlizet, carvedilol Assessment & Plan (07/05/2024 11:02 AM EVENTS INTERN): Denying any complaints of angina. Continue beta-santana, aspirin, and Nexlizet Assessment & Plan (12/07/2023 2:47 PM CDT): History of mid LAD PCI and remains free of angina. - continue aspirin and Nexlizet, carvedilol Assessment & Plan (05/12/2023 1:12 PM CDT): History of mid LAD PCI and remains free of angina. - continue aspirin and Nexlizet, carvedilol Assessment & Plan (11/06/2022 10:18 PM EVENTS INTERN): History of mid LAD PCI and remains free of angina. She reports history of diffuse myalgias and joint pain prompting discontinuation of multiple different statin agents and therefore is on Nexlizet which she seems to be tolerating. - continue aspirin and Nexlizet, carvedilol Assessment & Plan (08/06/2022 4:54 PM EVENTS INTERN): History of mid LAD PCI and remains [...] Type Department Care Team Description 06/28/2025 Telephone [facility] Cardiology [address] [place] [address] [address] [address] Karthikeyan Cotton MD 06/12/2025 Telephone [facility] Cardiology [address] [place] [address] [address] [place] [address] Karley Rhoades MA 05/23/2025 Telephone [facility] Cardiology [address] [place] [address] [address] Karthikeyan Cotton MD 05/16/2025 Telephone [facility] Cardiology [address] [place] [address] [address] [address] Karthikeyan Cotton MD Test Results 05/08/2025 Telephone [facility] Cardiology [address] [place] [address] [address] [place] [address] Karthikeyan Cotton MD from Last 3 Months [...] 36.4 C (97.5 F) 07/11/2024 1:08 PM EVENTS INTERN Respiratory Rate 16 07/11/2024 1:08 PM EVENTS INTERN Oxygen Saturation 96% 01/09/2025 9:56 AM CDT [...] 65+ 2019 Influenza Vaccine (#1) 2025 Insurance [facility] MEDICARE ADVANTAGE [facility] MED[facility] Address: [place] [id number] [facility] MEDIC[facility] Address: [place] [phone] [facility] MEDIC[facility] Address: [place] [address] Care Teams Netsuite Developer Relationship Specialty Start Date End Date Cresencio Weber MD PCP - General Family Medicine 11/05/22
--- OUTSIDE RECORDS SUMMARY | 2025-07-12 15:01 | XMS_ITS | Patient Health Record ---
Author Organization [facility] Address [address] [address] Care Team Providers Care Dictaphone Mechanic Name Role Phone MIKKI ROUSE Primary Care [...] Date Coverage End Date [facility] [address] [address] [place] [address] [id number] [id number] KERRY OLMOS Self - patient is the insured 2 Medical (General) History Medical History History ICD Code Problems: Sinus Problems: Active Bronchitis HTN Arthritis Asthma Uterine cancer Heart disease Sleep apnea Surgical History Surgery Date(Month/Year) Gallbladder 2018 Tonsils 196 Hysterectomy estab Hospitalization History Reason Date(Month/Year)
== END 2025-07-12 13:57 | disposition home or self-care (01) ==
LOC: CHSIMG 13:56
PROVIDERS: PCP Family Medicine; Visit Provider Nurse Practitioner Family
DX: S32.018A Other fracture of first lumbar vertebra, initial encounter for closed fracture (principal); R51.9 Headache, unspecified
CPT/HCPCS: 70450; 77080

== ENCOUNTER 2025-07-15 09:26 | Outpatient (CLI) | payer MEDICARE, SELFPAY ==
--- NOTE | ~2025-07-15 | MR_ITS ---
EXAMINATION: MR lumbar spine wo con DATE: 07/15/2025 09:58 INDICATION: Low back pain radiating into the right lower limb. TECHNIQUE: Magnetic resonance imaging (MRI) of the lumbar spine was performed without intravenous contrast. Sequences included sagittal T2-weighted FSE, sagittal T2-weighted FS FSE, sagittal T1-weighted FSE, and axial T2-weighted FSE. COMPARISON: CT lumbar spine 05/29/2025 FINDINGS: There is a burst fracture of L3 with 2/5 loss of height, edema-like marrow signal intensity, and retropulsion of bone 2 mm into central spinal canal. Intervertebral disc heights are normal. The distal spinal cord signal intensity is normal. The conus medullaris is at L1-L2. The following disc levels are specifically discussed: L1-L2: There is a central extrusion. There is mild bilateral facet joint osteoarthritis. There is no neural foraminal stenosis. There is mild central canal stenosis. L2-L3: The disc is bulging and has an annular fissure. There is moderate bilateral facet joint osteoarthritis. There is moderate right and mild left neural foraminal stenosis. There is mild central canal stenosis. L3-L4: The disc is bulging and has an annular fissure. There is moderate right and severe left facet joint osteoarthritis. There is mild bilateral neural foraminal stenosis. There is mild central canal stenosis. L4-L5: The disc is bulging and has an annular fissure. There is severe bilateral facet joint osteoarthritis. There is mild bilateral neural foraminal stenosis. There is mild central canal stenosis. L5-S1: The disc is bulging and has an annular fissure. There is moderate right and severe left facet joint osteoarthritis. There is mild bilateral neural foraminal stenosis. There is mild central canal stenosis. IMPRESSION: 1. Subacute L3 burst fracture, worsened from 05/29/2025. 2. Mild lumbar spondylosis. Reviewed, dictated and finalized at location E. LE ENDECA CONSULTANT
== END 2025-07-15 09:27 | disposition home or self-care (01) ==
LOC: CHSIMG 09:27
PROVIDERS: PCP Family Medicine; Visit Provider Nurse Practitioner Adult Health
DX: S32.018A Other fracture of first lumbar vertebra, initial encounter for closed fracture (principal); M43.06 Spondylolysis, lumbar region
CPT/HCPCS: 72148

== ENCOUNTER 2025-08-18 09:22 | Outpatient (CLI) | payer MEDICARE, SELFPAY ==
--- OUTSIDE RECORDS SUMMARY | 2025-08-18 09:37 | XMS_ITS | Clinical Summary ---
[facility] Organization [facility] D Address [address] [place] [address] Care Team Providers Care Antiquer Name Role Phone Cresencio Weber MD Primary Care Provider [phone] Allergies Active Allergy Reactions Criticality Noted Date [...] 11/06/2022 Assessment & Plan (07/05/2024 11:03 AM PLATE GRAINER): On Nexlizet, LDL above goal at 88. [...] day Assessment & Plan (07/05/2024 11:01 AM PLATE GRAINER): Unchanged EF, 38%. Unable to tolerate Entresto, [...] - continue carvedilol 6.25 b.i.d. - discussed BLUEPRINT ENGINEER but declines - continue cardiac rehab - will repeat echo at six-month follow-up to reassess ejection fraction; if it is stable or reduced from prior then will advocate to her again to retry spironolactone Assessment & Plan (11/06/2022 10:20 PM PLATE GRAINER): Primarily nonischemic cardiomyopathy though with coexisting single-vessel [...] also discussed in depth likely benefit of BLUEPRINT ENGINEER D given her persistently low ejection fraction and wide left bundle branch block however she adamantly declines. - increase carvedilol back to 6.25 b.i.d. - continue cardiac rehab Assessment & Plan (08/06/2022 4:53 PM PLATE GRAINER): Primarily nonischemic cardiomyopathy though with coexisting single-vessel [...] tolerated. She would be a candidate for BLUEPRINT ENGINEER D given her left bundle branch [...] 6 weeks Coronary artery disease invo lving [place] coronary artery of [place] heart without angina pectoris 06/03/2022 Assessment & Plan (01/08/2025 3:14 PM CDT): History of mid LAD PCI and remains free of angina. -- continue aspirin and Nexlizet, carvedilol Assessment & Plan (07/05/2024 11:02 AM PLATE GRAINER): Denying any complaints of angina. Continue beta-santana, aspirin, and Nexlizet Assessment & Plan (12/07/2023 2:47 PM CDT): History of mid LAD PCI and remains free of angina. - continue aspirin and Nexlizet, carvedilol Assessment & Plan (05/12/2023 1:12 PM CDT): History of mid LAD PCI and remains free of angina. - continue aspirin and Nexlizet, carvedilol Assessment & Plan (11/06/2022 10:18 PM PLATE GRAINER): History of mid LAD PCI and remains free of angina. She reports history of diffuse myalgias and joint pain prompting discontinuation of multiple different statin agents and therefore is on Nexlizet which she seems to be tolerating. - continue aspirin and Nexlizet, carvedilol Assessment & Plan (08/06/2022 4:54 PM PLATE GRAINER): History of mid LAD PCI and remains [...] Encounters Date Type Department Care Team Description 08/09/2025 Telephone [facility] Cardiology [address] [place] [address], [place] [address] Karthikeyan Cotton MD 06/28/2025 Telephone [facility] Cardiology [address] [place] [address] [address], [place] [address] Karthikeyan Cotton MD 06/12/2025 Telephone [facility] Cardiology [address] [place] [address] Karley Rhoades MA 05/23/2025 Telephone [facility] Cardiology [address] [place] [address], [place] [address] Karthikeyan Cotton MD from Last 3 Months [...] 36.4 C (97.5 F) 07/11/2024 1:08 PM PLATE GRAINER Respiratory Rate 16 07/11/2024 1:08 PM PLATE GRAINER Oxygen Saturation 96% 01/09/2025 9:56 AM CDT [...] 65+ 2019 Influenza Vaccine (#1) 2025 Insurance [facility] MEDICARE ADVANTAGE [facility] Address: [address] [address] [place] [address] [facility] MEDICARE ADVANTAGE [facility] MEDICARE ADVANTAGE [facility] Address: [address] [place] [phone] Care Teams Antiquer Relationship Specialty Start Date End Date Cresencio Weber MD PCP - General Family Medicine 11/05/22
--- OUTSIDE RECORDS SUMMARY | 2025-08-18 09:37 | XMS_ITS | Patient Health Record ---
Author Organization [facility] Address [address] [place] [address] Phone [phone] Care Team Providers Care Telesales Team Leader Name Role Phone MIKKI ROUSE DO Primary Care Provider [phone] Allergies Allergen (clinical drug ingredient) Drug/Non Drug [...] Frequency, Duration) Notes Start Date End Date Diagnosis (ICD Code) Status Doxycycline Monohydrate 100 MG Tablet 1 tablet Orally Twice a day; Duration: 7 days Active Levalbuterol Tartrate 45 MCG/ACT Aerosol 2 puff as needed Inhalation every 4-6 hrs; Duration: 30 days unable to tolerate albuterol due to s/e, has prior Rx of levalbuterol which she has done well with thank you 02/05/20 22 Cough (ICD_10 - R05.9) Active Nexlizet 180-10 MG Tablet 1 tablet Orally Once a day Active Vitamin D 50 MCG (1999) Capsule 1 capsule Orally Once a day Active Carvedilol 12.5 MG Tablet 1 tablet with food Orally Twice a day Active Baby Aspirin Active methylPREDNISolone 4 MG Tablet Therapy Pack as directed Orally; Duration: 6 days Bronchitis (ICD_10 - J40) Active Social History Tobacco Use: Social History Observation Description Date Details (start date - stop date) Never Smoker NA - NA Sex Observation Social History Observation Description Sex Observation Female Sexual Orientation Social History Observation Description Sexual Orientation Straight or heterose xual Gender Identity Social History Observation Description Gender Identity Female Social History Sexual History: Social Info [...] Coverage Start Date Coverage End Date [facility] [address] [address] [place] [address] [id number] KERRY OLMOS Self - patient is the insured 2 Medical (General) History Medical History History ICD Code Problems: Sinus Problems: Active Bronchitis HTN Arthritis Asthma Uterine cancer Heart disease Sleep apnea Surgical History Surgery Date(Month/Year) Gallbladder 2018 Tonsils 196 Hysterectomy estab Hospitalization History Reason Date(Month/Year)
[2025-08-18 10:18] LABS: Cholesterol 157 mg/dL (0-200); HDL Direct 53 mg/dL; Triglycerides 154 mg/dL (<150)
[2025-08-18 10:36] LABS: Free T4 Free Thyroxine 1.16 ng/dL (0.78-2.19)
[2025-08-18 10:50] LABS: Thyroid Stimulating Hormone 1.420 uIU/mL (0.465-4.680)
[2025-08-19 09:53] LABS: Total Triiodothyronine (T3) 1.28 NG/ML (0.97-1.69)
== END 2025-08-18 09:23 | disposition home or self-care (01) ==
PROVIDERS: PCP Nurse Practitioner Family; Visit Provider Nurse Practitioner Family
DX: F32.1 Major depressive disorder, single episode, moderate (principal); E78.2 Mixed hyperlipidemia; I10 Essential (primary) hypertension; Z13.29 Encounter for screening for other suspected endocrine disorder; Z13.220 Encounter for screening for lipoid disorders
CPT/HCPCS: 36415; 80061; 84439; 84443; 84480; 86376